=== PATIENT | male | born 1985 | race Caucasian/White ===

== ENCOUNTER 2023-07-13 12:37 | Outpatient (CLI) | payer OTHER, SELFPAY ==
[2023-07-13 12:51] LABS: Basophils Absolute Auto 0.11 K/mm3 (0.00-0.10); Eosinophils Absolute Auto 0.32 K/mm3 (0.02-0.50); Eosinophils Percent Auto 2.8 % (1.0-6.0); Hematocrit 44.1 % (40.0-54.0); Hemoglobin 15.1 g/dL (14.0-18.0); Immature Granulocyte Absolute 0.03 K/mm3 (0.00-0.00); Immature Granulocyte Percent A 0.3 % (0.0-0.0); Lymphocytes Percent Auto 49.6 % (18.0-42.0); Mean Corpuscular HGB Conc 34.2 g/dL (32.0-36.0); Mean Corpuscular Hemoglobin 31.7 pg (27.0-31.0); Mean Corpuscular Volume 92.5 fL (78.0-102.0); Mean Platelet Volume 9.1 fl (8.7-11.0); Monocytes Absolute Auto 0.79 K/mm3 (0.10-0.90); Neutrophils Absolute Auto 4.5 K/mm3 (1.7-7.2); Neutrophils Percent Auto 39.3 % (50.0-70.0); Platelet Count Result 270 K/mm3 (150-420); Red Blood Count 4.77 M/mm3 (4.70-6.10); Red Cell Distribution Width 12.8 % (11.6-14.4); White Blood Count 11.3 K/mm3 (4.8-10.8)
[2023-07-13 14:21] LABS: Alanine Aminotransferase 40 U/L (16-63); Albumin Level 4.1 g/dL (3.4-5.0); Alkaline Phosphatase 84 U/L (46-116); Anion Gap 7 mmol/L (8-16); Aspartate Amino Transferase 28 U/L (15-37); Bilirubin,Total 0.6 mg/dL (0.00-1.00); Blood Urea Nitrogen 14 mg/dL (7-18); Calcium 8.7 mg/dL (8.5-10.1); Carbon Dioxide 29 mmol/L (21-32); Chloride 102 mmol/L (98-108); Cholesterol 136 mg/dL (0-200); Estimated Glomerular Filt Rate > 60; Glucose 68 mg/dL (70-99); HDL Direct 38 mg/dL (40-60); LDL Cholesterol Calculated 85 mg/dL (<130); Osmolality Calculated 284 mOsm/kg (285-295); Potassium 4.5 mmol/L (3.5-5.1); Sodium 138 mmol/L (136-145); Total Protein 7.2 g/dL (6.4-8.2); Triglycerides 67 mg/dL (0-150)
[2023-07-13 14:22] LABS: Thyroid Stimulating Hormone Reflex 1.27 u/IU/mL (0.36-3.74)
[2023-07-14 09:25] LABS: Magnesium 2.1 mg/dL (1.8-2.4)
== END 2023-07-13 12:38 | disposition home or self-care (01) ==
PROVIDERS: PCP Family Medicine; Visit Provider Family Medicine
DX: I10 Essential (primary) hypertension (principal); E11.9 Type 2 diabetes mellitus without complications; E61.2 Magnesium deficiency
CPT/HCPCS: 36415; 80053; 80061; 83735; 84443; 85025

== ENCOUNTER 2023-08-08 11:12 | Outpatient (CLI) | payer OTHER, SELFPAY ==
--- NOTE | ~2023-08-08 | XR_ITS ---
Lumbosacral Spine: AP and lateral views Clinical History: Pain Findings: The normal lordotic curve is maintained. There is mild dextro scoliosis. No fracture or sub luxation. There is moderate degenerative disc change at L3-L4 and L4-L5. There is mild to moderate fa cet arthropathy at the lower lumbar spine. The sacroiliac joints are normally outlined. Impression: [id number] degenerative spondylosis, as above. Reviewed, dictated and finalized at location M. WORKER Impression: [id number] degenerative spondylosis, as above.
== END 2023-08-08 11:13 | disposition home or self-care (01) ==
LOC: CHSIMG 11:14
PROVIDERS: PCP Family Medicine; Visit Provider Family Medicine
DX: G89.29 Other chronic pain (principal); M54.9 Dorsalgia, unspecified
CPT/HCPCS: 72100

== ENCOUNTER 2023-08-26 14:24 | Outpatient (CLI) | payer OTHER, SELFPAY ==
--- NOTE | ~2023-08-26 | XR_ITS ---
EXAMINATION: XR thoracic spine 3V DATE: 08/26/2023 14:57 INDICATION: Pain in thoracic spine. TECHNIQUE: 3 views of thoracic spine were obtained. COMPARISON: None. FINDINGS: There is levocurvature of cervicothoracic spine. There is 6 degrees dextrocurvature of thor acic spine. There is mild chronic anterior wedging of T12 and L1 vertebral bodies. Intervertebral dis c heights are normal. There are bridging endplate osteophytes at multiple levels in the spine, consis tent with diffuse idiopathic skeletal hyperostosis (DISH). IMPRESSION: 1. DISH. Reviewed, dictated and finalized at location A. LION CUTTER IMPRESSION: 1. DISH.
--- NOTE | ~2023-08-26 | XR_ITS ---
EXAMINATION: XR_CERV2-3V_CR DATE: 08/26/2023 14:57 INDICATION: Neck pain. TECHNIQUE: 4 views of cervical spine were obtained. COMPARISON: None. FINDINGS: There is 8 degrees levocurvature of cervicothoracic spine. There is mild kyphosis of cervic al spine. Vertebral body heights and intervertebral disc heights are normal. There are bulky anterior endplate osteophytes at multiple levels. The facet joints are unremarkable. No central canal stenosi s or prevertebral soft tissue swelling. IMPRESSION: 1. Mild cervical spondylosis. Reviewed, dictated and finalized at location A. ME AUDITOR
== END 2023-08-26 14:25 | disposition home or self-care (01) ==
LOC: CHSIMG 14:27
PROVIDERS: PCP Family Medicine; Visit Provider Nurse Practitioner Adult Health
DX: M54.6 Pain in thoracic spine (principal); M48.14 Ankylosing hyperostosis [Forestier], thoracic region; M43.02 Spondylolysis, cervical region
CPT/HCPCS: 72040; 72072

== ENCOUNTER 2023-10-15 14:27 | Emergency (ER) | payer OTHER, SELFPAY ==
[2023-10-15 14:30] VITALS: BP 144/95; PULSE 73; RESP 20; TEMP 36.9; O2SAT 97
--- NOTE | 2023-10-15 14:49 | PC.NURSE ---
1440 CALL PLACED TO [facility] FOR OUT OF POCKET COST OF ABT. STAFF STATED SITUATION FIXED, NO CHARGE FOR MEDICATIONS. PT INFORMED OF NO CHARGE. PT DEPARTED FACILITY WITHOUT BEING SEEN BY PROVIDER.
== END 2023-10-15 14:43 | disposition left against medical advice (07) ==
PROVIDERS: Emergency Provider Emergency Medicine
DX: Z53.21 Procedure and treatment not carried out due to patient leaving prior to being seen by health care provider (principal)
CPT/HCPCS: 99199

== ENCOUNTER 2023-11-04 14:03 | Outpatient (RCR) | payer OTHER, SELFPAY ==
--- NOTE | 2023-12-21 09:05 | OPREHPOC ---
Outpatient Therapy Plan of Care This is a Multidisciplinary Plan of Care that may contain components documented by all disciplines (PT, OT, and ST.) PT Problem 1 PT Problem #1 Knowledge Deficit PT Goal 1 Goal 1. independent and compliant with HEP Target Visit 6 PT Problem 2 PT Problem #2 Pain PT Goal 1 Goal 1. Decrease pain at worst to 5/10 or less in the lower back 2. reduction of radicular symptoms to not past the buttocks bilaterally Target Visit 12 PT Problem 3 PT Problem #3 Impaired Range of Motion PT Goal 1 Goal 1. improve active lumbar flexion to ankles 2. improve active lumbar extension to 20 degrees 3. improve active lumbar bilateral side bending to 30 degrees or better Target Visit 12 PT Problem 4 PT Problem #4 Impaired Strength PT Goal 1 Goal 1. improve bilateral hip strength to 4+/5 or better overall 2. improve bilateral knee strength to 5/5 3. patient to perform bridge and hold for 1 minute or more without losing posture Target Visit 12 PT Problem 5 PT Problem #5 Impaired Functional Mobil PT Goal 1 Goal 1. oswestry to display 40% or less functional deficits 2. patient to display 30 degrees or less bilateral hamstrings tightness per the 90/90 test 3. patient to perform 5x sit to stand test in 15 seconds or less with fluid movement 4. patient to stand and walk fro 30 minutes or more without increased symptoms in the lower back. Target Visit 12
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
--- NOTE | 2024-03-29 10:13 | PCPTNOTE ---
Pt only attended his IE and no follow ups. He is discharged. -Vicky Younger, PT
== END 2023-11-04 14:30 | disposition home or self-care (01) ==
LOC: CHSPT 14:03
DX: M54.41 Lumbago with sciatica, right side (principal); M54.42 Lumbago with sciatica, left side; G89.29 Other chronic pain
CPT/HCPCS: 97014; 97110; 97161; G0283

== ENCOUNTER 2023-11-10 11:36 | Outpatient (NON) | payer OTHER, SELFPAY | END 2023-11-10 11:37 | disposition home or self-care (01) | LOC: CHSLAB 11:37 | PROVIDERS: Visit Provider Family Medicine | DX: R32 Unspecified urinary incontinence (principal) | CPT/HCPCS: 87077; 87086; 87088; 87186 ==

== ENCOUNTER 2023-11-13 20:03 | Observation (INO) | payer OTHER, SELFPAY ==
--- NOTE | ~2023-11-13 | CT_ITS ---
EXAMINATION: CT abdomen pelvis wo con DATE: 11/13/2023 21:26 INDICATION: fever bilateral flank pain recent UTI TECHNIQUE: Computed tomography (CT) of the abdomen and pelvis was performed without intravenous contr ast. Automated exposure control and iterative reconstruction technique were employed. The dose-length product was 931.96 mGy-cm. COMPARISON: None. FINDINGS: Lower thorax: Unremarkable Liver: Enlarged. Biliary/Gallbladder: Gallbladder is normal. No bile duct dilation. Pancreas: No mass or duct dilation. Spleen: Normal. Adrenals:No mass. Kidneys: Mild bilateral perinephric stranding, slightly worse on the left. 3 mm nonobstructing left midpole calcification. No suspicious mass. Mild stranding around the bilater al ureters. No hydronephrosis. GI tract: No small or large bowel dilation. Normal appendix. Diverticulosis without diverticulitis. Mesentery/Peritoneum: No ascites, mass, or free air. Retroperitoneum: No mass. Pelvis: Partially distended bladder with mild wall thickening. Prostatic calcifications. Soft Tissues: Small uncomplicated fat-containing umbilical and bilateral inguinal hernias. Bones: No acute osseous finding. IMPRESSION: Hepatomegaly. Mild bilateral perinephric and periureteral stranding, may represent ascending infection or pyeloneph ritis. Cystitis versus wall thickening from incomplete urinary bladder distention. Correlate with urinalysis . Reviewed, dictated and finalized at location K. IMPRESSION: Hepatomegaly. Mild bilateral perinephric and periureteral stranding, may represent ascending infection or pyelonephritis. Cystitis versus wall thickening from incomplete urinary bladder distention. Cor relate with urinalysis.
[2023-11-13 20:05] VITALS: BP 153/103; PULSE 81; RESP 18; TEMP 37.5; O2SAT 99
--- NOTE | 2023-11-13 21:03 | WPDEDEXPGENP ---
HPI - General Ped General Chief complaint: Urogenital-Male Stated complaint: UTI/Kidney Pain Time Seen by Provider: 11/13/23 21:02 Source: patient Mode of arrival: ambulatory Limitations: no limitations History of Present Illness HPI narrative: 37-year-old homosexual male recently diagnosed with a UTI 5 days ago on Bactrim by Dr. Goyal complains of flank pain fever chills nausea vomiting. Patient has been on Bactrim twice a day. His symptoms actually started about 2 weeks ago associated with fever nausea generalized joint pain tremor low back pain he also had some burning with urination. He has less burning with urination now. But does complain of urgency incontinence of urine mucus from his penis on his underwear. Patient complains of Urinary frequency that at times he feels like it is difficult to avoid or has to go but that he is unable to void. he vomited 4 times today 1st clear liquid after he had drunk some water and then some green liquid. His pain is worse when he moves around it is bilateral flank. Also had some neck pain he has chronic back and neck pain for which he takes [place] 10 3 times a day. He has felt fevers and chills. Patient has a monogamous relationship and has never had a last tested 2 years ago for this. he has had just a little bit of cough was still little short of breath but not now. Denies any rash or itching bleeding or bruising he has been lightheaded when he stands up for the last 3 days complains of generalized fatigue tiredness and exhaustion and generalized weakness. Denies any numbness. Denies any other complaints. Related Data Home Medications Medication Instructions Recorded Confirmed diclofenac sodium 50 mg 50 mg PO QHS 07/13/23 11/13/23 tablet,delayed release gabapentin 300 mg capsule 600 mg PO TID 07/13/23 11/13/23 hydrocodone 10 mg-acetaminophen 1 tablet PO Q8H PRN Pain 07/13/23 11/13/23 325 mg tablet ubrogepant 100 mg tablet (Ubrelvy) 100 mg PO ONCE 07/13/23 11/13/23 celecoxib 100 mg capsule 100 mg PO DAILY 11/13/23 11/13/23 methocarbamol 500 mg tablet 500 mg PO TID 11/13/23 11/13/23 Allergies Allergy/AdvReac Type Severity Reaction Status Date / Time ketorolac Allergy Unknown Unknown Verified 11/10/23 07:48 pregabalin [From Lyrica] Allergy Unknown Verified 11/13/23 20:19 Pediatric Review of Systems All systems ED: reviewed and negative except as stated PMFSH Past Medical History Medical History Dissociation Diverticulitis Migraines PTSD (post-traumatic stress disorder) Surgical History Surgical History H/O knee surgery H/O removal of cyst [place] teeth removed Family History Family History Mother Heart disease Diabetes mellitus Kidney disease Parkinsons disease Throat cancer Father Diabetes mellitus Social History Social History Smoking status: Current every day smoker Tobacco type: e-cigarettes/vaping Alcohol intake: never Substance use: current Substance use type: marijuana Pediatric Exam Narrative: Physical exam: White male With mild distress. ?Head:? Normocephalic atraumatic.? Eyes conjunctiva pink sclera nonicteric.? Ears externally normal.? Oropharynx is clear with moist mucous membranes no exudates.? Neck is supple no lymphadenopathy nontender full range of motion.? Back is nontender.? Chest nontender.? Lungs are clear without wheezes rales or rhonchi.? Heart is regular rate rhythm without murmurs gallops or rubs.? Abdomen soft and nontender no hepatosplenomegaly or masses no CVA tenderness no abdominal bruits.? Extremities no cyanosis clubbing or edema.? Neurological she is alert and oriented x4 motor and sensory grossly intact.? Skin is warm and dry without lesions. Course Vital Signs V
[2023-11-13] MEDS: ONDANSETRON INJ 4 MG/2 ML VIAL IV PUSH (21:24)
[2023-11-13] MEDS: HYDROmorphone HCL INJ (*CRX) 2 MG/ML VIAL 1 MG IV PUSH (21:25)
[2023-11-13] MEDS: SODIUM CHLORIDE 0.9% IV 1,000 ML 999 ML IV CONT (21:25)
[2023-11-13] MEDS: ACETAMINOPHEN 325 MG TABLET 650 MG PO (21:26)
[2023-11-13 21:29] VITALS: BP 132/74; PULSE 87; RESP 20; TEMP 37.7; O2SAT 97
[2023-11-13 21:38] LABS: Bilirubin Urine Negative (Negative); Blood Urine 1+ (Negative); Color Urine Yellow (Yellow); Glucose Urine UA Negative (Negative); Ketones Urine Negative (Negative); Leukocyte Esterase Ur 1+ LEU/UL (Negative); Nitrate Urine Negative (Negative); Protein Urine Trace (Negative); pH Urine 6.5 (5.0-8.0)
[2023-11-13 21:43] LABS: Add Urine Microscopic? YES; Appearance Urine Sl Cloudy (Clear)
[2023-11-13 21:44] LABS: Bacteria Urine 2+ /hpf; RBC Urine 0-2 /hpf (0-2)
[2023-11-13 22:10] LABS: Hematocrit 37.7 % (40.0-54.0); Hemoglobin 12.6 g/dL (14.0-18.0); Mean Corpuscular HGB Conc 33.4 g/dL (32-36); Mean Corpuscular Volume 92.6 fL (78.0-102.0); Mean Platelet Volume 9.2 fl (8.7-11.0); Platelet Count Result 232 K/mm3 (150-420); Red Blood Count 4.07 M/mm3 (4.70-6.10); Red Cell Distribution Width 12.7 % (11.6-14.4); White Blood Count 18.9 K/mm3 (4.8-10.8)
[2023-11-13 22:21] VITALS: BP 125/79; PULSE 97; RESP 20; TEMP 37; O2SAT 96
[2023-11-13 22:22] VITALS: TEMP 37
--- NOTE | 2023-11-13 22:23 | PC.NURSE ---
Pt resting c TV on. Reports feeeling better since given meds, sipping on ice water and apple juice. Pt informed on wait times due to machine down in lab. Pt aware of wait times and POC at this time.
[2023-11-13 23:14] LABS: Alanine Aminotransferase 17 U/L (6-50); Albumin Level 3.9 g/dL (3.5-5.1); Alkaline Phosphatase 84 U/L (38-126); Anion Gap 6 mmol/L (4-12); Aspartate Amino Transferase 27 U/L (17-59); Blood Urea Nitrogen 8 mg/dL (9-20); Calcium 8.7 mg/dL (8.4-10.2); Carbon Dioxide 24 mmol/L (22-30); Chloride 107 mmol/L (98-107); Estimated CRCL calculation 130 ml/min; Estimated Glomerular Filt Rate > 60; Glucose 88 mg/dL (65-110); Osmolality Calculated 281 mOsm/kg (285-295); Potassium 3.2 mmol/L (3.4-5.0); Sodium 137 mmol/L (137-145)
--- NOTE | 2023-11-14 00:32 | PC.NURSE ---
Pt ambulatory to BR per self, c/o pain starting to come back again. ERP made aware of pt pain elevating again.
[2023-11-14 00:38] VITALS: BP 146/85; PULSE 87; RESP 20; TEMP 37.2; O2SAT 97
--- NOTE | 2023-11-14 01:00 | PC.NURSE ---
POC for admit discussed c pt. Pt given meds for pain, he c/o increasing pain again and body chills/aches. Order obtained.
[2023-11-14] MEDS: HYDROmorphone HCL INJ (*CRX) 2 MG/ML VIAL 0.5 MG IV PUSH (01:02)
[2023-11-14] MEDS: ONDANSETRON INJ 4 MG/2 ML VIAL IV PUSH ×2 (01:02→04:34)
[2023-11-14] MEDS: SODIUM CHLORIDE 0.9% IV 1,000 ML 999 ML IV CONT (01:03)
[2023-11-14] MEDS: levoFLOXacin 500 MG/D5W 100 ML 500 MG/100 ML BAG 100 MG IVPB (01:04)
[2023-11-14] MEDS: ACETAMINOPHEN 325 MG TABLET 650 MG PO ×3 (01:20→21:12)
--- NOTE | 2023-11-14 02:41 | PC.NURSE ---
Spoke to Anish Rothman on floor, bed assigned, pt to go to Rm 204. VSS.
--- NOTE | 2023-11-14 02:47 | PC.NURSE ---
Pt now on 2nd floor status board, ED SBAR printed and reviewed, and room is ready. Awaiting pt arrival to the floor.
[2023-11-14 03:07] VITALS: BP 134/78; PULSE 75; RESP 20; TEMP 37; O2SAT 98
[2023-11-14 03:11] VITALS: BMI 33.3
--- NOTE | 2023-11-14 03:21 | ADMGEN ---
This patient, Bang Saxena, was admitted to 2nd Floor Room 204-2. Patient oriented to hospital policies and general routines including ID bracelet, bed and alarms, visiting hours, pain management, procedures, bathroom and other care routines, personal items, smoking policy, room service/diet, and visiting hours. Information on how to activate the Rapid Response Team has been discussed. Patient are encouraged to report perceived risks to care and to ask questions if they do not understand what they are told or what they should do.
[2023-11-14] MEDS: SODIUM CHLORIDE 0.9% IV 1,000 ML 125 ML IV CONT (04:25)
[2023-11-14] MEDS: NICOTINE (*PBKC) 21 MG PATCH 1 PATCH TRANSDERM ×2 (04:34→17:55)
[2023-11-14] MEDS: HYDROcodone/acetaminophen (*CRX) 10-325 MG TABLET 1 TAB PO ×3 (04:35→19:17)
[2023-11-14 07:59] VITALS: TEMP 37.9
[2023-11-14 08:00] VITALS: BP 118/78; PULSE 91; RESP 14; TEMP 37.9; O2SAT 98
--- NOTE | 2023-11-14 08:59 | PM.IMHP ---
H&P: HPI History of Present Illness Date/Time: 11/14/23 08:59 Chief Complaint: pyelonephritis Acute UTI Narrative: This is a 37 year old male with a significant past medical history of dissociation, diverticulitis, migraines, PTSD, tobacco abuse who presented with flank pain, fever, chills, nausea and vomiting. Work up in the hospital includes CT of the abdomen pelvis which shows mild bilateral perinephric and Evelin ureteral stranding likely representing ascending infection or pyelonephritis, cystitis verses wall thickening from incomplete urinary bladder distention. Patient states that his symptoms started about 2 weeks ago with fever, nausea, generalized joint pain, tremor, low back pain, and some burning with urination. He states that he vomited 4 times yesterday and has had worsening flank pain over the last few days. He was initially seen on 11/10/2023 by his primary care physician for the UTI and was started on Bactrim. They did obtain a urine culture and it grew E coli however this sensitivities were resistant to Bactrim. He is homosexual and is in a monogamous relationship. When he seen his primary on 11/10/23 they tested for Chlamydia, Gonorrhea, trichomonas, and mycoplasma genitalium and was negative. He denies any nausea, vomiting, diarrhea, chest pain, shortness a breath. He endorses fever, chills, bilateral flank pain. Workup in the hospital included mild bilateral perinephric and Periureteral stranding, may represent ascending infection or pyelonephritis, cystitis verses wall thickening from incomplete urinary bladder distention. Initial labs shown a white blood cell count of 18.9, hemoglobin 12.6, potassium 3.2, serum osmolarity 281, kidney and liver function are normal. A UA was obtained which showed trace protein, 1+ urine blood, 4+ urine urobilinogen, 1+ leukocyte, 10-15 urine wbc's, 2+ bacteria. Urine and blood cultures were pending. Patient was given pain medication, IV fluids, Zofran, and was given a dose of Levaquin while in the ED. We will start Rocephin as this was not resistant on his previous urine culture. Review of Systems Review of Systems: All systems reviewed & are unremarkable except as noted in HPI and below Constitutional: Constitutional: Reports as per HPI and Reports no additional constitutional complaints Eyes: Eyes: Reports as per HPI and Reports no additional eye complaints ENT: Reports system reviewed and no additional complaints, except as documented and Reports as per HPI Cardiovascular: Cardiovascular: Reports as per HPI and Reports no additional cardiovascular complaints Respiratory: Respiratory: Reports as per HPI and Reports no additional respiratory complaints Gastrointestinal: Gastrointestinal: Reports as per HPI and Reports no additional gastrointestinal complaints Genitourinary: Genitourinary: Reports no additional male genitourinary complaints and Reports as per HPI Musculoskeletal: Musculoskeletal: Reports no additional musculoskeletal complaints and Reports as per HPI Integumentary/Breasts: Skin/Breast: Reports system reviewed and no additional complaints, except as docu and Reports as per HPI Neurologic: Reports system reviewed and no additional complaints, except as documented and Reports as per HPI Psychiatric: Psychiatric: Reports no additional psychiatric complaints and Reports as per HPI PMFSH Past Medical History Medical History Dissociation Diverticulitis DJD (degenerative joint disease) Migraines PTSD (post-traumatic stress disorder) Scoliosis Surgical History Surgical History H/O knee surgery H/O removal of cyst [employer] [employer] teeth removed Family History Family History Mother Heart disease Diabetes mellitus Kidney disease Parkinsons disease Throat cancer Father Diabetes mellitus Social Hi
[2023-11-14 09:19] VITALS: TEMP 36.8
[2023-11-14] MEDS: methocarbamoL 500 MG TABLET PO ×3 (09:19→17:55)
[2023-11-14] MEDS: CELECOXIB 100 MG CAPSULE PO (09:19)
[2023-11-14] MEDS: GABAPENTIN 300 MG CAPSULE 600 MG PO ×3 (09:19→17:55)
[2023-11-14 12:08] LABS: Basophils Absolute Auto 0.06 K/mm3 (0.00-0.10); Basophils Percent Auto 0.3 % (0.0-1.0); Eosinophils Percent Auto 0.5 % (1.0-6.0); Hematocrit 37.5 % (40.0-54.0); Immature Granulocyte Percent A 0.5 % (0.0-0.0); Lymphocytes Absolute Auto 3.15 K/mm3 (1.10-4.50); Lymphocytes Percent Auto 17.1 % (18.0-42.0); Mean Corpuscular HGB Conc 34.7 g/dL (32-36); Mean Corpuscular Volume 92.4 fL (78.0-102.0); Mean Platelet Volume 9.2 fl (8.7-11.0); Monocytes Absolute Auto 1.97 K/mm3 (0.10-0.90); Monocytes Percent Auto 10.7 % (2.0-11.0); Neutrophils Absolute Auto 13.02 K/mm3 (1.70-7.20); Neutrophils Percent Auto 70.9 % (50.0-70.0); Platelet Count Result 259 K/mm3 (150-420); Red Blood Count 4.06 M/mm3 (4.70-6.10); Red Cell Distribution Width 12.8 % (11.6-14.4); White Blood Count 18.4 K/mm3 (4.8-10.8)
[2023-11-14 16:00] VITALS: BP 127/84; PULSE 85; RESP 18; TEMP 37.1; O2SAT 97
[2023-11-14] MEDS: MIRTAZAPINE 7.5 MG TABLET PO (20:56)
[2023-11-14 23:07] LABS: Alanine Aminotransferase 25 U/L (16-63); Albumin Level 3.1 g/dL (3.4-5.0); Alkaline Phosphatase 84 U/L (46-116); Anion Gap 11 mmol/L (4-12); Aspartate Amino Transferase 21 U/L (15-37); Bilirubin,Total 1.4 mg/dL (0.00-1.00); Blood Urea Nitrogen 7 mg/dL (7-18); Calcium 8.9 mg/dL (8.5-10.1); Carbon Dioxide 25 mmol/L (21-32); Chloride 102 mmol/L (98-108); Estimated CRCL calculation 120 ml/min; Estimated Glomerular Filt Rate > 60; Glucose 62 mg/dL (70-99); Osmolality Calculated 282 mOsm/kg (285-295); Potassium 3.7 mmol/L (3.5-5.1); Sodium 138 mmol/L (136-145); Total Protein 6.8 g/dL (6.4-8.2)
[2023-11-15] VITALS: BP 138/84; PULSE 87; RESP 16; TEMP 37.1; O2SAT 97
[2023-11-15] MEDS: HYDROcodone/acetaminophen (*CRX) 10-325 MG TABLET 1 TAB PO ×4 (01:23→20:36)
[2023-11-15 05:55] LABS: Basophils Absolute Auto 0.06 K/mm3 (0.00-0.10); Basophils Percent Auto 0.5 % (0.0-1.0); Eosinophils Absolute Auto 0.19 K/mm3 (0.02-0.50); Eosinophils Percent Auto 1.5 % (1.0-6.0); Hematocrit 37.1 % (40.0-54.0); Hemoglobin 12.1 g/dL (14.0-18.0); Immature Granulocyte Absolute 0.06 K/mm3 (0.00-0.00); Immature Granulocyte Percent A 0.5 % (0.0-0.0); Lymphocytes Absolute Auto 2.87 K/mm3 (1.10-4.50); Lymphocytes Percent Auto 22.5 % (18.0-42.0); Mean Corpuscular HGB Conc 32.6 g/dL (32-36); Mean Corpuscular Hemoglobin 30.6 pg (27.0-31.0); Mean Corpuscular Volume 93.7 fL (78.0-102.0); Mean Platelet Volume 9.5 fl (8.7-11.0); Monocytes Absolute Auto 1.35 K/mm3 (0.10-0.90); Monocytes Percent Auto 10.6 % (2.0-11.0); Neutrophils Absolute Auto 8.21 K/mm3 (1.70-7.20); Neutrophils Percent Auto 64.4 % (50.0-70.0); Platelet Count Result 260 K/mm3 (150-420); Red Blood Count 3.96 M/mm3 (4.70-6.10); Red Cell Distribution Width 12.6 % (11.6-14.4); White Blood Count 12.7 K/mm3 (4.8-10.8)
[2023-11-15 06:14] LABS: Alanine Aminotransferase 35 U/L (16-63); Albumin Level 2.6 g/dL (3.4-5.0); Alkaline Phosphatase 82 U/L (46-116); Anion Gap 8 mmol/L (4-12); Aspartate Amino Transferase 31 U/L (15-37); Bilirubin,Total 0.8 mg/dL (0.00-1.00); Blood Urea Nitrogen 8 mg/dL (7-18); Chloride 101 mmol/L (98-108); Estimated CRCL calculation 117 ml/min; Estimated Glomerular Filt Rate > 60; Glucose 97 mg/dL (70-99); Osmolality Calculated 286 mOsm/kg (285-295); Potassium 3.4 mmol/L (3.5-5.1); Sodium 139 mmol/L (136-145); Total Protein 6.9 g/dL (6.4-8.2)
[2023-11-15 06:29] LABS: Carbon Dioxide 30 mmol/L (21-32)
[2023-11-15 08:00] VITALS: BP 150/90; PULSE 82; RESP 16; TEMP 36.9; O2SAT 98
[2023-11-15] MEDS: GABAPENTIN 300 MG CAPSULE 600 MG PO ×3 (08:01→16:55)
[2023-11-15] MEDS: NICOTINE (*PBKC) 21 MG PATCH 1 PATCH TRANSDERM (08:01)
[2023-11-15] MEDS: CELECOXIB 100 MG CAPSULE PO (08:02)
[2023-11-15] MEDS: methocarbamoL 500 MG TABLET PO ×3 (08:02→16:55)
[2023-11-15] MEDS: ENOXAPARIN 40 MG/0.4 ML SYRINGE SUB-Q (08:05)
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
[2023-11-15] MEDS: POTASSIUM CHLORIDE 20 MEQ ER TABLET 40 MEQ PO (14:18)
[2023-11-15 15:34] VITALS: BP 143/85; PULSE 75; RESP 16; TEMP 36.9; O2SAT 97
[2023-11-15] MEDS: MIRTAZAPINE 7.5 MG TABLET PO (20:35)
[2023-11-16] VITALS: BP 136/91; PULSE 80; RESP 18; TEMP 36.7; O2SAT 97
[2023-11-16 05:19] LABS: Basophils Absolute Auto 0.07 K/mm3 (0.00-0.10); Basophils Percent Auto 0.6 % (0.0-1.0); Eosinophils Absolute Auto 0.39 K/mm3 (0.02-0.50); Eosinophils Percent Auto 3.5 % (1.0-6.0); Hematocrit 37.7 % (40.0-54.0); Hemoglobin 12.4 g/dL (14.0-18.0); Immature Granulocyte Absolute 0.04 K/mm3 (0.00-0.00); Immature Granulocyte Percent A 0.4 % (0.0-0.0); Lymphocytes Absolute Auto 2.63 K/mm3 (1.10-4.50); Lymphocytes Percent Auto 23.8 % (18.0-42.0); Mean Corpuscular HGB Conc 32.9 g/dL (32-36); Mean Corpuscular Hemoglobin 30.7 pg (27.0-31.0); Mean Corpuscular Volume 93.3 fL (78.0-102.0); Mean Platelet Volume 9.2 fl (8.7-11.0); Monocytes Absolute Auto 1.07 K/mm3 (0.10-0.90); Monocytes Percent Auto 9.7 % (2.0-11.0); Neutrophils Absolute Auto 6.83 K/mm3 (1.70-7.20); Platelet Count Result 297 K/mm3 (150-420); Red Blood Count 4.04 M/mm3 (4.70-6.10); Red Cell Distribution Width 12.7 % (11.6-14.4)
[2023-11-16 05:33] LABS: Alanine Aminotransferase 76 U/L (16-63); Albumin Level 2.7 g/dL (3.4-5.0); Alkaline Phosphatase 92 U/L (46-116); Anion Gap 11 mmol/L (4-12); Aspartate Amino Transferase 65 U/L (15-37); Bilirubin,Total 0.6 mg/dL (0.00-1.00); Blood Urea Nitrogen 9 mg/dL (7-18); Calcium 8.8 mg/dL (8.5-10.1); Carbon Dioxide 28 mmol/L (21-32); Chloride 101 mmol/L (98-108); Estimated CRCL calculation 113 ml/min; Estimated Glomerular Filt Rate > 60; Glucose 95 mg/dL (70-99); Osmolality Calculated 288 mOsm/kg (285-295); Potassium 3.7 mmol/L (3.5-5.1); Sodium 140 mmol/L (136-145); Total Protein 7.2 g/dL (6.4-8.2)
[2023-11-16 08:00] VITALS: BP 118/83; PULSE 71; RESP 14; TEMP 36.4; O2SAT 96
--- NOTE | 2023-11-16 08:25 | PM.DS ---
DS: Admitting Diagnosis Discharge Date 11/16/2023 Admitting Diagnosis UTI, acute pyelonephritis, hypertension, chronic back pain DS: Discharge Diagnosis Discharge Diagnosis (1) UTI (urinary tract infection): Code(s): N39.0 - Urinary tract infection, site not specified Status: Acute (2) Acute pyelonephritis: Code(s): N10 - Acute pyelonephritis Status: Acute (3) Hypertension: Code(s): I10 - Essential (primary) hypertension Status: Acute (4) Chronic back pain: Code(s): M54.9 - Dorsalgia, unspecified; G89.29 - Other chronic pain Status: Chronic (5) Bacteremia, escherichia coli: Code(s): R78.81 - Bacteremia; B96.20 - Unspecified Escherichia coli [E. coli] as the cause of diseases classified elsewhere Status: Acute (6) Tobacco abuse: Code(s): Z72.0 - Tobacco use Status: Acute DS: Summary Hospital Course Hospital Course: Patient was treated with Bactrim for urinary tract infection as an outpatient but symptoms continued to worsen including flank pain, fever, chills, nausea and vomiting. Symptoms started 2 weeks prior to admission. Culture was resistant to. Patient was admitted for IV antibiotics blood cultures obtained. While in the hospital 1 bottle of 1 set of cultures was positive for Gram-negative bacilli presumed to be E coli. Patient was treated with Rocephin once admitted. Dysuria flank pain nausea vomiting symptoms resolved. No fever chills since admission. Patient is well-appearing. Today is his birthday so he is requesting discharge. Repeat cultures no growth to date will continue to monitored. Discussion ID pharmacist recommending 3 times a day Augmentin which we will continue for 10 days due to bacteremia and pyelonephritis. Patient instructed return precautions. Also instructed to take entire prescription of antibiotics which she states he always does. Time spent discussing smoking cessation with patient: 3 to 10 minutes Status at Discharge Cognitive/behavioral status at discharge: Awake alert oriented and pleasant Functional status at discharge: independent ambulation Overall status at discharge: patient is progressing back to baseline Time Spent with Patient Time attestation: Total time spent providing and/or coordinating discharge services: 45 minutes Time spent: Greater than 30 minutes Exam Narrative: GENERAL: Well-appearing, well-nourished, and in no acute distress. HEAD: Normocephalic, atraumatic. ENT:? Mucous membranes moist. CHEST: Clear to auscultation.? No respiratory distress. HEART: Regular rate and rhythm. ? Normal peripheral pulses. ABDOMEN: Soft, nontender, nondistended. EXTREMITIES: Normal range of motion. No peripheral edema. SKIN: Warm dry normal color NEURO: Alert and oriented x3. PSYCH: Normal mood and affect DS: Data Data Completed and Pending Labs on day of discharge: Labs from last 24 hours 11/16/23 05:13 WBC 11.0 H RBC 4.04 L Hgb 12.4 L Hct 37.7 L MCV 93.3 MCH 30.7 MCHC 32.9 RDW 12.7 Plt Count 297 MPV 9.2 Immature Gran % (Auto) 0.4 H Neut % (Auto) 62.0 Lymph % (Auto) 23.8 [place] % (Auto) 9.7 Eos % (Auto) 3.5 Baso % (Auto) 0.6 Lymph # (Auto) 2.63 [place] # (Auto) 1.07 H Eos # (Auto) 0.39 Baso # (Auto) 0.07 Abs Immat Gran (auto) 0.04 H Absolute Neuts (auto) 6.83 Absolute Nucleated RBC 0.00 Nucleated RBC % 0.0 Sodium 140 Potassium 3.7 Chloride 101 Carbon Dioxide 28 Anion Gap 11 BUN 9 Creatinine 0.93 Estim Creat Clear Calc 113 Estimated GFR > 60 Glucose 95 Calculated Osmolality 288 Calcium 8.8 Total Bilirubin 0.6 AST 65 H ALT 76 H Alkaline Phosphatase 92 Total Protein 7.2 Albumin 2.7 L Preliminary micro results at discharge 11/13/23 22:07 Blood Culture - Preliminary Blood 11/13/23 22:07 Blood Culture - Preliminary Blood Gram negative bacilli isolated Discharge Plan Discharge Attending physician on dis
[2023-11-16] MEDS: ENOXAPARIN 40 MG/0.4 ML SYRINGE SUB-Q (09:22)
[2023-11-16] MEDS: LOSARTAN POTASSIUM 12.5 MG TABLET PO (09:23)
[2023-11-16] MEDS: NICOTINE (*PBKC) 21 MG PATCH 1 PATCH TRANSDERM (09:23)
[2023-11-16] MEDS: CELECOXIB 100 MG CAPSULE PO (09:24)
[2023-11-16] MEDS: methocarbamoL 500 MG TABLET PO (09:24)
[2023-11-16] MEDS: GABAPENTIN 300 MG CAPSULE 600 MG PO (09:24)
[2023-11-16] MEDS: cefTRIAXone 2 GM/NS 100 ML 2 GM/100 ML BAG IVPB (09:40)
--- NOTE | 2023-11-16 13:36 | PC.NURSE ---
Pt discharged to home with significant other. VSS. discharge instructions given to pt regarding medications, new medication side effects , purpose and dosing times. Pt instructed regarding S&S to report to the PCP and to make a post hospital visit . Pt verbalized understanding of all instructions. Pt taken to car via WC per RN.
--- NOTE | 2023-11-17 09:26 | PC.NURSE ---
Discharge call back attempted, no answer
--- NOTE | 2023-11-29 08:51 | PC.NURSE ---
Patient receiving OP rocephin due to culture report, doing well and returning as directed by PMD for outpatient therapy
== END 2023-11-16 13:00 | disposition home or self-care (01) ==
LOC: CHSED 11-14 02:33 → CHS2ND 11-14 08:07
PROVIDERS: Nurse Practitioner Acute Care; Admitting Provider Internal Medicine; Emergency Provider Emergency Medicine; PCP Family Medicine; Visit Provider Nurse Practitioner
DX: N10 Acute pyelonephritis (principal); N39.0 Urinary tract infection, site not specified; R78.81 Bacteremia; B96.20 Unspecified Escherichia coli [E. coli] as the cause of diseases classified elsewhere; I10 Essential (primary) hypertension; M41.9 Scoliosis, unspecified; M19.90 Unspecified osteoarthritis, unspecified site; M54.9 Dorsalgia, unspecified; M54.2 Cervicalgia; G89.29 Other chronic pain; F43.10 Post-traumatic stress disorder, unspecified; F17.290 Nicotine dependence, other tobacco product, uncomplicated
CPT/HCPCS: 36415; 74176; 80053; 81001; 83605; 85025; 85027; 87040; 87077; 87086; 87088; 87147; 87186; 96361; 96365; 96366; 96372; 96374; 96375; 96376; 99285; A9270; G0378; J0696; J1170; J1650; J1956; J2405; J7030

== ENCOUNTER 2023-11-25 11:00 | Outpatient (NON) | payer OTHER, SELFPAY | END 2023-11-25 11:01 | disposition home or self-care (01) | LOC: CHSLAB 11:01 | PROVIDERS: Visit Provider Family Medicine | DX: B96.20 Unspecified Escherichia coli [E. coli] as the cause of diseases classified elsewhere (principal); R78.81 Bacteremia | CPT/HCPCS: 87086 ==

== ENCOUNTER 2023-11-29 12:53 | Outpatient (RCR) | payer OTHER, SELFPAY ==
[2023-11-25 12:50] VITALS: BMI 33.3
[2023-11-25] MEDS: cefTRIAXone 2 GM/NS 100 ML 2 GM/100 ML BAG IVPB (13:00)
[2023-11-25 13:17] VITALS: BP 123/64; PULSE 60; RESP 14; TEMP 36.6; O2SAT 98
[2023-11-25 13:22] LABS: Alanine Aminotransferase 39 U/L (16-63); Albumin Level 3.9 g/dL (3.4-5.0); Alkaline Phosphatase 108 U/L (46-116); Anion Gap 7 mmol/L (4-12); Aspartate Amino Transferase 23 U/L (15-37); Bilirubin,Total 0.3 mg/dL (0.00-1.00); Blood Urea Nitrogen 8 mg/dL (7-18); Calcium 9.9 mg/dL (8.5-10.1); Carbon Dioxide 26 mmol/L (21-32); Chloride 99 mmol/L (98-108); Estimated CRCL calculation 115 ml/min; Estimated Glomerular Filt Rate > 60; Glucose 112 mg/dL (70-99); Osmolality Calculated 273 mOsm/kg (285-295); Sodium 132 mmol/L (136-145)
--- NOTE | 2023-11-25 13:30 | PC.NURSE ---
Patient here for IV Ceftriaxone daily for 5 days as outpatient. Education given. All concerns voiced answered. IV Ceftriaxone administered. SEE MAR. Tolerated well. Will return 11/26/23 at 12:30 pm. Safe exit of hospital per self/ambulatory.
[2023-11-25 13:32] VITALS: BP 124/63; PULSE 64; RESP 12
[2023-11-25 15:06] LABS: Basophils Absolute Auto 0.13 K/mm3 (0.00-0.10); Basophils Percent Auto 0.9 % (0.0-1.0); Eosinophils Absolute Auto 0.43 K/mm3 (0.02-0.50); Hematocrit 46.6 % (40.0-54.0); Hemoglobin 15.4 g/dL (14.0-18.0); Immature Granulocyte Absolute 0.03 K/mm3 (0.00-0.00); Immature Granulocyte Percent A 0.2 % (0.0-0.0); Immature Platelet Fraction Pct 2.1 % (1.0-7.0); Lymphocytes Absolute Auto 7.05 K/mm3 (1.10-4.50); Lymphocytes Percent Auto 49.2 % (18.0-42.0); Mean Corpuscular Hemoglobin 31.2 pg (27.0-31.0); Mean Corpuscular Volume 94.3 fL (78.0-102.0); Mean Platelet Volume 10.2 fl (8.7-11.0); Monocytes Absolute Auto 0.79 K/mm3 (0.10-0.90); Monocytes Percent Auto 5.5 % (2.0-11.0); Neutrophils Absolute Auto 5.91 K/mm3 (1.70-7.20); Neutrophils Percent Auto 41.2 % (50.0-70.0); Platelet Count Result 521 K/mm3 (150-420); Red Blood Count 4.94 M/mm3 (4.70-6.10); Red Cell Distribution Width 12.5 % (11.6-14.4); White Blood Count 14.3 K/mm3 (4.8-10.8)
--- NOTE | 2023-11-26 12:45 | PC.NURSE ---
Patient here for IV Antibiotic. Sitting in chair resting with call light. Tolerated IV start well.
[2023-11-26] MEDS: cefTRIAXone 2 GM/NS 100 ML 2 GM/100 ML BAG IVPB (12:50)
[2023-11-26 12:52] VITALS: BP 137/100; PULSE 64; RESP 16; TEMP 36.1; O2SAT 97; BMI 33.3
--- NOTE | 2023-11-26 13:20 | PC.NURSE ---
Patient tolerated IV antibiotic well. IV site discontinued, dressing applied to site. Patient denies any questions at discharge. To receive another dose of antibiotic tomrrow. Left floor ambulatory.
[2023-11-27 12:45] VITALS: BP 136/91; PULSE 93; RESP 16; TEMP 36.1; O2SAT 95; BMI 33.3
--- NOTE | 2023-11-27 12:45 | PC.NURSE ---
Patient here for IV antibiotic. Tolerated IV start well. Resting in recliner. Call light and belongings provided.
[2023-11-27] MEDS: cefTRIAXone 2 GM/NS 100 ML 2 GM/100 ML BAG IVPB (12:49)
--- NOTE | 2023-11-27 13:25 | PC.NURSE ---
Patient tolerated IV antibiotic well. IV sited removed, tip intact. Dressing applied to site. Patient denies any questions. States he needs to come an hour earlier tomorrow than planned due to an appt. Patient will be coming in at 1130 instead on 1230. Patient left floor ambulatory.
[2023-11-28 12:06] VITALS: BMI 30.9
[2023-11-28] MEDS: cefTRIAXone 2 GM/NS 100 ML 2 GM/100 ML BAG IVPB (12:23)
[2023-11-28 12:34] VITALS: BP 120/86; PULSE 81; RESP 16; TEMP 36.1; O2SAT 97
--- NOTE | 2023-11-28 13:11 | PC.NURSE ---
1140 Patient ambulated to floor with paperwork. States he does have one of his migraines but flank pain is better. Instructed patient on use of call light and TV. States understanding. 1304 Patient left without difficulty. IV removed and patient walked to the elevator.
[2023-11-29] MEDS: cefTRIAXone 2 GM/NS 100 ML 2 GM/100 ML BAG IVPB (13:00)
--- NOTE | 2023-11-29 13:08 | PC.NURSE ---
1240 Patient ambulated to floor without difficulty. IV started without difficulty.
[2023-11-29 13:11] VITALS: BP 136/81; PULSE 86; RESP 16; TEMP 36.1; O2SAT 98
[2023-11-29 13:40] VITALS: BP 135/81; PULSE 85; RESP 16; TEMP 36.7; O2SAT 98
--- NOTE | 2023-11-29 13:50 | PC.NURSE ---
1340 IV removed Vital signs taken patient left ambulating to the elevator.
== END 2024-02-23 23:59 | disposition home or self-care (01) ==
LOC: CHSTREATRM 12:53
PROVIDERS: PCP Family Medicine; Visit Provider Family Medicine
DX: R78.81 Bacteremia (principal); N10 Acute pyelonephritis
CPT/HCPCS: 36415; 80053; 85025; 85055; 87040; 96365; J0696

== ENCOUNTER 2023-12-27 10:49 | Outpatient (CLI) | payer OTHER, SELFPAY | END 2023-12-27 10:50 | disposition home or self-care (01) | LOC: CHSIMG 10:51 | PROVIDERS: PCP Family Medicine; Visit Provider Family Medicine | DX: N10 Acute pyelonephritis (principal) | CPT/HCPCS: 87077; 87086; 87088; 87186 ==

== ENCOUNTER 2023-12-28 12:50 | Outpatient (CLI) | payer OTHER, SELFPAY ==
--- NOTE | ~2023-12-28 | CT_ITS ---
EXAMINATION: CT abdomen pelvis wo con DATE: 12/28/2023 13:19 INDICATION: Left flank pain. Calculus of kidney. TECHNIQUE: Computed tomography (CT) of the abdomen and pelvis was performed without intravenous contr ast. Automated exposure control and iterative reconstruction technique were employed. The dose-length product was 788.70 mGy-cm. COMPARISON: CT abdomen and pelvis 11/13/2023 FINDINGS: The visualized portions of the lung bases are clear without pneumonia or pleural effusion. The heart size is normal. No pericardial effusion. There is diffuse hepatic steatosis. The gallbladde r, spleen, pancreas, adrenal glands, and right kidney are normal. There is a 3 mm stone in left kidne y. There is diverticulosis of the colon without evidence of diverticulitis. There are no dilated loop s of bowel. The appendix is normal. There are no pathologically enlarged lymph nodes. There is no kemi e intraperitoneal fluid. There is severe lumbar spondylosis. Lumbar dextroscoliosis is noted. IMPRESSION: 1. 3 mm nonobstructing left kidney stone. Reviewed, dictated and finalized at location A.
== END 2023-12-28 12:51 | disposition home or self-care (01) ==
PROVIDERS: PCP Family Medicine; Visit Provider Family Medicine
DX: N20.0 Calculus of kidney (principal); G89.29 Other chronic pain; M54.9 Dorsalgia, unspecified; N10 Acute pyelonephritis
CPT/HCPCS: 74176

== ENCOUNTER 2024-10-25 18:22 | Emergency (ER) | payer OTHER, SELFPAY ==
--- NOTE | ~2024-10-25 | CT_ITS ---
CT abdomen pelvis wo con Ordering provider: Enzo Syed MD History: 38 years Male with . left flank pain, know stone . Comparison: December 28, 2023 Technique: CT abdomen and pelvis without IV and without oral contrast. Automated exposure control and iterative reconstruction technique were employed. The dose-length product was 983.26 mGy-cm. Findings: VISUALIZED LOWER CHEST: Normal. UPPER ABDOMINAL ORGANS: Liver: Hepatomegaly. Gallbladder: Normal. Spleen: Normal. Stomach/duodenum: Normal. Pancreas: Normal. Adrenals: Left adrenal adenoma measuring 1.6 cm. Further evaluation with dynamic CT or MRI is advised . Kidneys: 4 mm stone is seen in the left kidney mid pole. PELVIC ORGANS: The bladder is underfilled with slightly thickened wall. Evaluation for cystitis advis ed. BOWEL AND MESENTERY: Colon: No evidence of diverticulitis. Normal appendix. Small Bowel: Normal. No obstruction. Peritoneum/mesentery: No free air or free fluid. No mesenteric lymphadenopathy. RETROPERITONEUM: Mild atheromatous disease of the abdominal aorta. No retroperitoneal lymphadenopat hy. MUSCULOSKELETAL: Superficial soft tissues: Bilateral fat containing inguinal hernias. The superficial soft tissues are normal. Bones: Age appropriate degenerative changes of the spine. Bilateral hip osteoarthritic changes. Dextr oscoliosis. IMPRESSION: 1. Stone in the left kidney midpole. 2. No evidence of appendicitis, diverticulitis or intestinal obstruction. 3. Hepatomegaly. 4. Bilateral fat containing inguinal hernias. Reviewed, dictated and finalized at location A.
[2024-10-25 18:24] VITALS: BP 140/102; PULSE 85; RESP 17; TEMP 36.7; O2SAT 97
--- OUTSIDE RECORDS SUMMARY | 2024-10-25 18:25 | XMS_ITS | Encounter Summary ---
Author Organization [facility] Address [address] [facility] [place] [address] Phone Care Team Providers Care Reinforcing Rod Layer Name Role Phone Enzo Holloway MD Primary Care Provider [phone] Kvng Jaeger MD Unavailable [phone] Ela Kim APRN, [facility] Unavailable + [phone] Tariq Goyal MD Primary Care Provider [phone] Pablo Mora MD Unavailable [phone] Enzo Holloway MD Primary Care Provider [phone] Tariq Goyal MD Primary Care Provider [phone] Reason for Visit * Reason Comments Medication Refill Encounter Details Date Type Department Care Team (Late st Contact Info) Description 06/01/2022 [facility]ill [facility] - [place] [address] [place] [address] Danya Lozano November, PAC [address] [place] [address] Medication Refill Social History Tobacco Use Types Packs/Day Years Used Date Smoking Tobacco: Every Day Cigarettes 0.3 32.6 Started: 04/01/1992 Smokeless Tobacco: Never Comments:2 per week Alcohol Use Standard Drinks/Week Comments Yes 0 (1 standard drink = 0.6 oz pur e alcohol) rare PHQ-2 Answer Date Recorded Total Score - Questions 1-9 0 01/25 Sexually Active Control Partners Comments Yes Sex and Gender Information Value Date Recorded Sex Assigned at Not on file Legal Sex Male 9:24 PM CDT Gender Identity Not on file Sexual Orientation Not on file COVID-19 Exposure Response Date Recorded In the last 10 days, have yo u been in contact with someone who was confirmed or suspected to have Coronavirus/COVID-19? No / Unsure 05/04/2022 10:32 AM HYDROGEN POWER PLANT ENGINEER documented as of this encounter Miscellaneous Notes * Telephone Encounter - Vicky Coleman - 06/03/2022 1:30 PM CST Apt scheduled OGEN POWER PLANT ENGINEER * Telephone Encounter - Alissa Sanchez APRN, CNP - 06/02/2022 12:38 PM CST Needs appointment. Last office visit was in 04/2021 OGEN POWER PLANT ENGINEER * Telephone Encounter - Veronika Butterfield RN - 06/01/2022 2:35 PM CST Pharmacy requesting refill of: Requested Prescriptions Pending Prescriptions Disp Refills ??? omeprazole (PriLOSEC) 20 MG CAPSULE DELAYED RELEASE [Pharmacy Med Name: OMEPRAZOLE DR 20 MG CAPSULE] 60 Capsule 1 Sig: TAKE 1 CAPSULE BY MOUTH TWICE A DAY Order pended. Please sign if you approve. Last fill: 04/05/22 Patients last OV with GI: 04/28/21 Next Office Visit with GI: n/a OGEN POWER PLANT ENGINEER documented in this encounter Plan of Treatment Upcoming Encounters Date Type Department Care Team (Late st Contact Info) Description 12/07/2024 11:00 AM CDT Procedure Visit [facility] [address] [place] [address] Kvng aJeger MD [address] [place] [address] documented as of this encounter Visit Diagnoses Diagnosis Gastroesophageal reflux disease without esophagitis Esophageal reflux documented in this encounter Additional Health Concerns Assessment Noted Time PHQ-9 Depression Total Score: 0 02/04/20 21 1:00 PM CDT documented as of this encounter Care Teams Reinforcing Rod Layer Relationship Specialty Start Date End Date Enzo Holloway MD #[address] [address] PCP - General Family Medicine 04/27/17 12/27/23 Tariq Goyal MD [address] [place] [address] PCP - General Family Medicine 12/28/23 04/02/24 Enzo Holloway MD #[address] [address] PCP - General Family Medicine 04/03/24 08/30/24 Tariq Goyal MD [address] [place] [address] PCP - General Family Medicine 08/31/24 Kvng Jaeger MD [address] [place] [address] Consulting Physician Neurology 04/12/23 Ela Kim, DRAWING CHECKER, EYELET ROW MARKER [address] [place] [address] Nurse Practitioner Advanced Practice Nurse 03/15/22 Pablo Mora MD [address] [place] [address] Consulting Physician Urology 02/03/24 documented as of this encounter
--- OUTSIDE RECORDS SUMMARY | 2024-10-25 18:25 | XMS_ITS | Encounter Summary ---
Author Organization [facility] Address [address] [place] [place] [address] Phone Care Team Providers Care Tankman Name Role Phone Enzo Holloway MD Primary Care Provider [phone] Kvng Jaeger MD Unavailable [phone] Ela Kim APRN, PRESS MANAGER Unavailable Tariq Goyal MD Primary Care Provider [phone] Pablo Mora MD Unavailable [phone] Enzo Holloway MD Primary Care Provider [phone] Tariq Goyal MD Primary Care Provider [phone] Reason for Visit * Reason Comments Medication Refill Encounter Details Date Type Department Care Team (Late st Contact Info) Description 05/12/2022 Refill [facility] - [facility] [address] [place] [id number] Ela Kim APRN, PRESS MANAGER [address] [place] [address] Medication Refill Social History Tobacco Use Types [...] Coronavirus/COVID-19? No / Unsure 05/04/2022 10:32 AM INCLUSION SPECIALIST documented as of this encounter Plan of Treatment Upcoming Encounters Date Type Department Care Team (Late st Contact Info) Description 12/07/2024 11:00 AM CDT Procedure Visit [facility] - Neurology [facility] [address] [place] [address] Kvng Jaeger MD [address] [place] [address] documented as of this encounter Visit Diagnoses Diagnosis Chronic migraine without aura, not intractable, without status migrainosus documented in this encounter Additional Health Concerns Assessment Noted Time PHQ-9 Depression Total Score: 0 02/04/20 21 1:00 PM CDT documented as of this encounter Care Teams Tankman Relationship Specialty Start Date End Date Enzo Holloway MD #[address] [address] PCP - General Family Medicine 04/27/17 12/27/23 Tariq Goyal MD [address] [place] [address] PCP - General Family Medicine 12/28/23 04/02/24 Enzo Holloway MD #[address] [address] PCP - General Family Medicine 04/03/24 08/30/24 Tariq Goyal MD [address] [place] [address] PCP - General Family Medicine 08/31/24 Kvng Jaeger MD [address] [place] [address] Consulting Physician Neurology 04/12/23 Ela Kim APRN, PRESS MANAGER [address] [place] [address] Nurse Practitioner Advanced Practice Nurse 03/15/22 Pablo Mora MD #[address] [address] Consulting Physician Urology 02/03/24 documented as of this encounter
--- OUTSIDE RECORDS SUMMARY | 2024-10-25 18:25 | XMS_ITS | Encounter Summary ---
Author Organization [facility] Address [address] [place] [address] Phone Care Team Providers Care Church History Teacher Name Role Phone Enzo Holloway MD Primary Care Provider [phone] Kvng Jaeger MD Unavailable [phone] Ela Kim APRN, HISTOLOGY SPECIALIST Unavailable Tariq Goyal MD Primary Care Provider [phone] Pablo Mora MD Unavailable [phone] Enzo Holloway MD Primary Care Provider [phone] Tariq Goyal MD Primary Care Provider [phone] Reason for Visit * Reason Comments Medication Refill Encounter Details Date Type Department Care Team (Late st Contact Info) Description 06/19/2022 Refill [facility] - [facility] [address] [place] [phone] Ela Kim APRN, HISTOLOGY SPECIALIST [address] [place] [address] Medication Refill Social History Tobacco Use Types [...] on file Sexual Orientation Not on file documented as of this encounter Plan of Treatment Upcoming Encounters Date Type Department Care Team (Late st Contact Info) Description 12/07/2024 11:00 AM CDT Procedure Visit [facility] - [facility] [address] [place] [address] Kvng Jaeger MD [address] [place] [address] documented as of this encounter Visit Diagnoses Diagnosis Acute post-traumatic headache, not intractable Acute post-traumatic headache Primary hypertension Unspecified essential hypertension documented in this encounter Additional Health Concerns Assessment Noted Time PHQ-9 Depression Total Score: 0 02/04/20 21 1:00 PM CDT documented as of this encounter Care Teams Church History Teacher Relationship Specialty Start Date End Date Enzo Holloway MD #[address] [address] PCP - General Family Medicine 04/27/17 12/27/23 Tariq Goyal MD [address] [place] [address] PCP - General Family Medicine 12/28/23 04/02/24 Enzo Holloway MD #[address] [address] PCP - General Family Medicine 04/03/24 08/30/24 Tariq Goyal MD [address] [place] [address] PCP - General Family Medicine 08/31/24 Kvng Jaeger MD [address] [place] [address] Consulting Physician Neurology 04/12/23 Ela Kim APRN, HISTOLOGY SPECIALIST [address] [place] [address] Nurse Practitioner Advanced Practice Nurse 03/15/22 Pablo Mora MD #[address] [address] Consulting Physician Urology 02/03/24 documented as of this encounter
--- OUTSIDE RECORDS SUMMARY | 2024-10-25 18:25 | XMS_ITS | Encounter Summary ---
Author Organization [facility] Address [address] [facility] [place] [address] Phone Care Team Providers Care Stunt Woman Name Role Phone Enzo Holloway MD Primary Care Provider [phone] Kvng Jaeger MD Unavailable [phone] Ela Kim APRN, [facility] Unavailable + [phone] Tariq Goyal MD Primary Care Provider [phone] Pablo Mora MD Unavailable [phone] Enzo Holloway MD Primary Care Provider [phone] Tariq Goyal MD Primary Care Provider [phone] Reason for Visit * Reason Comments Medication Refill Encounter Details Date Type Department Care Team (Late st Contact Info) Description 12/19/2021 Refill [facility] - [place] [address] [place] [address] Danya Lozano November, PAC [address] [place] [address] Medication Refill Social History Tobacco Use Types Packs/Day Years Used Date Smoking Tobacco: Every Day Cigarettes 0.3 32.6 Started: 04/01/1992 Smokeless Tobacco: Never Comments:1-2 per day Alcohol Use Standard Drinks/Week Comments Yes 0 [...] on file documented as of this encounter Miscellaneous Notes * Telephone Encounter - Valerie Joyce RN - 12/21/2021 10:23 AM CDT [facility] pediatric and adult [facility]. documented in this encounter Plan of Treatment Upcoming Encounters Date Type Department Care Team (Late st Contact Info) Description 12/07/2024 11:00 AM CDT [facility] [address] [place] [address] Kvng Jaeger MD [address] [place] [address] documented as of this encounter Visit Diagnoses Diagnosis Gastroesophageal reflux disease without esophagitis Esophageal reflux documented in this encounter Additional Health Concerns Assessment Noted Time PHQ-9 Depression Total Score: 0 02/04/20 21 1:00 PM CDT documented as of this encounter Care Teams Stunt Woman Relationship Specialty Start Date End Date Enzo Holloway MD #[address] [address] PCP - General Family Medicine 04/27/17 12/27/23 Tariq Goyal MD [address] [place] [address] PCP - General Family Medicine 12/28/23 04/02/24 Enzo Holloway MD #[address] [address] PCP - General Family Medicine 04/03/24 08/30/24 Tariq Goyal MD [address] [place] [address] PCP - General Family Medicine 08/31/24 Kvng Jaeger MD [address] [place] [address] Consulting Physician Neurology 04/12/23 Ela Kim, APPLIED RESEARCHER, FREIGHT SORTER [address] [place] [address] Nurse Practitioner Advanced Practice Nurse 03/15/22 Pablo Mora MD #[address] [address] Consulting Physician Urology 02/03/24 documented as of this encounter
--- OUTSIDE RECORDS SUMMARY | 2024-10-25 18:25 | XMS_ITS | Encounter Summary ---
Author Organization [facility] Address [address] [place] [address] Phone Care Team Providers Care Explosive Man Name Role Phone Enzo Holloway MD Primary Care Provider [phone] Kvng Jaeger MD Unavailable [phone] Ela Kim APRN, [employer] Unavailable Tariq Goyal MD Primary Care Provider [phone] Pablo Mora MD Unavailable [phone] Enzo Holloway MD Primary Care Provider [phone] Tariq Goyal MD Primary Care Provider [phone] Reason for Visit * Reason Comments Medication Refill Encounter Details Date Type Department Care Team (Late st Contact Info) Description 10/19/2022 Refill [facility] #[address] [place] [id number] Ela Kim APRN, MA[employer] [address] [place] [address] Medication Refill Social History Tobacco Use Types [...] suspected to have Coronavirus/COVID-19? No / Unsure 10/21/2022 11:16 AM CDT documented as of this encounter Miscellaneous Notes * Telephone Encounter - Amanda Khoury RN - 10/20/2022 8:09 AM CDT Medication failed the protocol, provider to review and approve the medication order if appropriate. Requested Prescriptions Pending Prescriptions Disp Refills Ubrelvy 100 MG Tablet [Pharmacy Med Name: UBRELVY 100 MG TABLET] 30 Tablet 1 Sig: TAKE 1 TABLET BY MOUTH EVERY DAY NEEDED Not Delegated - Off Protocol Failed - 10/19/2022 5:19 PM Failed - This refill cannot be delegated Passed - Visit with relevant provider in past 12 months or upcoming 90 days Recent Visits Date Type Provider Dept 07/30/22 Procedure Visit Kvng Jaeger MD [facility] Neurology [facility] [place] 05/04/22 Office Visit Ela Kim APRN, CNS [facility] Neurology [facility] [place] 03/15/22 Office Visit Ela Kim APRN, CNS [facility] Neurology [facility] [address] 10/22/21 Office Visit Ela Kim APRN, CNS [facility] Neurology [facility] [place] Showing recent visits within past 365 days and meeting all other requirements Future Appointments Date Type Provider Dept 10/21/22 Appointment Ela Kim APRN, CNS [facility] Neu[facility] [place] 10/22/22 Appointment Kvng Jaeger MD [facility] Neurology [facility] Showing future appointments within next 90 days and meeting all other requirements documented in this encounter Plan of Treatment Upcoming Encounters Date Type Department Care Team (Late st Contact Info) Description 12/07/2024 11:00 AM CDT [facility] [address] [place] [address] Kvng Jaeger MD [address] [place] [address] documented as of this encounter Visit Diagnoses Diagnosis Chronic migraine without aura, not intractable, without status migrainosus documented in this encounter Additional Health Concerns Assessment Noted Time PHQ-9 Depression Total Score: 0 02/04/20 21 1:00 PM CDT documented as of this encounter Care Teams Explosive Man Relationship Specialty Start Date End Date Enzo Holloway MD #[address] [address] PCP - General Family Medicine 04/27/17 12/27/23 Tariq Goyal MD [address] [place] [address] PCP - General Family Medicine 12/28/23 04/02/24 Enzo Holloway MD #[address] [address] PCP - General Family Medicine 04/03/24 08/30/24 Tariq Goyal MD [address] [place] [address] PCP - General Family Medicine 08/31/24 Kvng Jaeger MD [address] [place] [address] Consulting Physician Neurology 04/12/23 Ela Kim APRN, [employer] [address] [place] [address] Nurse Practitioner Advanced Practice Nurse 03/15/22 Pablo Mora MD [address] [place], [facility] [address] [place] [address] Consulting Physician Urology 02/03/24 documented as of this encounter
--- OUTSIDE RECORDS SUMMARY | 2024-10-25 18:26 | XMS_ITS | Encounter Summary ---
Author Organization [facility] Address [address] [place] [address] Phone Care Team Providers Care Optics Engineer Name Role Phone Enzo Holloway MD Primary Care Provider [phone] Kvng Jaeger MD Unavailable [phone] Ela Kim APRN, [facility] [employer] Unavailable [phone] Tariq Goyal MD Primary Care Provider Pablo Mora MD Unavailable [phone] Enzo Holloway MD Primary Care Provider [phone] Tariq Goyal MD Primary Care Provider [phone] Reason for Visit * Reason Comments Medication Refill Encounter Details Date Type Department Care Team (Late st Contact Info) Description 07/13/2021 Refill [facility] - Neurology [facility] #2 [place] [id number] Ela Kim APRN, [facility] [employer] [address] [place] [address] Medication Refill Social History Tobacco Use Types [...] Exposure Response Date Recorded In the last month, have you been in contact with someone who was confirmed or suspected to have Coronavirus / COVID-19? No / Unsure 07/14/2021 2:55 PM WAD BLANKING PRESS ADJUSTER documented as of this encounter Plan of Treatment Upcoming Encounters Date Type Department Care Team (Late st Contact Info) Description 12/07/2024 11:00 AM CDT Procedure Visit [facility] - Neurology [facility] [address]2 [place] [address] Kvng Jaeger MD [address]2 [place] [address] documented as of this encounter Visit Diagnoses Not on filedocumented in this encounter Additional Health Concerns Assessment Noted Time PHQ-9 Depression Total Score: 0 02/04/20 21 1:00 PM CDT documented as of this encounter Care Teams Optics Engineer Relationship Specialty Start Date End Date Enzo Holloway MD [address] [address] PCP - General Family Medicine 04/27/17 12/27/23 Tariq Goyal MD [address] [place] [address] PCP - General Family Medicine 12/28/23 04/02/24 Enzo Holloway MD #[address] [address] PCP - General Family Medicine 04/03/24 08/30/24 Tariq Goyal MD [address] [place] [address] PCP - General Family Medicine 08/31/24 Kvng Jaeger MD [address]1 [place] [address] Consulting Physician Neurology 04/12/23 Ela Kim, MILL HAND, [facility] [address] [place] [address] Nurse Practitioner Advanced Practice Nurse 03/15/22 Pablo Mora MD #[address] [address] Consulting Physician Urology 02/03/24 documented as of this encounter
--- OUTSIDE RECORDS SUMMARY | 2024-10-25 18:26 | XMS_ITS | Encounter Summary ---
Author Organization [facility] Address [address] [place] [address] Phone Care Team Providers Care Pipe Finishing Supervisor Name Role Phone Kvng Jaeger MD Unavailable [phone] Ela Kim APRN, [facility] Unavailable [phone] Pablo Mora MD Unavailable [phone] Tariq Goyal MD Primary Care Provider [phone] Reason for Visit * Auth/Cert (Routine) Specialty Diagnoses / Procedures Referred By Contac t Referred To Contact Diagnoses GROSS HEMATURIA Procedures CYSTOSCOPY,DIL URETHRAL STRICTURE CYSTOSCOPY URETHRAL DILATATION Pablo Mora MD #[address] [address] Phone: tel: fax: Referral ID Status Reason Start Date Expiration Date Visits Re quested Visits Authorized [id number] 1 1 Encounter Details Date Type Department Care Team (Late st Contact Info) Description 10/23/2024 Hospital Encounter [facility] Periop [address] [place] [id number] Pablo Mora MD #[address] [address] Social History Tobacco Use Types Packs/Day Years Used Date Smoking Tobacco: Every Day Cigarettes 0.3 32.6 Started: 04/01/1992 Smokeless Tobacco: Never Comments:2 cigarettes per da y Alcohol Use Standard Drinks/Week Comments Yes 0 (1 standard drink = 0.6 oz pur e alcohol) occasional [facility] Utilities Answer Date Recorded In the past 12 months has e electric, gas, oil, or water company threatened to shut off services in your home? Patient declined 04/23/2024 Social Connection and Isolation Panel [NHANES] A nswer Date Recorded In a typical week, how many times do you talk on the phone with family, friends, or neighbors? Patient declined 04/23/2024 How often do you get togethe r with friends or relatives? Patient declined 04/23/2024 How often do you attend congregational or hindu serv ices? Patient declined 04/23/2024 Do you belong to any clubs o r organizations such as congregational groups, unions, fraternal or athletic groups, or school groups? Patient declined 04/23/2024 How often do you attend meet ings of the clubs or organizations you belong to? Patient declined 04/23/2024 Are you , , di vorced, , never , or living with a partner? Patient declined 04/23/2024 AUDIT-C Answer Date Recorded Q1: How often do you have a drink containing alc ohol? Patient declined 04/23/2024 Q2: How many drinks containi ng alcohol do you have on a typical day when you are drinking? Patient declined 04/23/2024 Q3: How often do you have si x or more drinks on one occasion? Patient declined 04/23/2024 Overall Financial Resource Strain (CARDIA) Answe r Date Recorded How hard is it for you to pa y for the very basics like food, housing, medical care, and heating? Patient declined 04/23/2024 PHQ-2 Answer Date Recorded Total Score - Questions 1-9 0 01/25 [facility] [place] of Occupat ional Health - Occupational Stress Questionnaire Answer Date Recorded Do you feel stress - tense, restless, nervous, or anxious, or unable to sleep at night because your mind is troubled all the time - these days? Patient declined 04/23/2024 Exercise Vital Sign Answer Date Recorde d On average, how many days pe r week do you engage in moderate to strenuous exercise (like a brisk walk)? Patient declined On average, how many minutes do you engage in exercise at this level? Patient declined 04/23/2024 Hunger Vital Sign Answer Date Recorded Within the past 12 months, y ou worried that your food would run out before you got the money to buy more. Patient declined Within the past 12 months, t he food you bought just didn't last and you didn't have money to get more. Patient declined PRAPARE - Transportation Answer Date Re corded In the past 12 months, has l ack of transportation kept you from medical appointments or from getting medications? Patient declined 04/23/2024 In the past 12 months, has l ack of transportation kept you from meetings, work, or from getting things needed for daily living? Patient declined 04/23/2024 Housing Stability Vital Sign Answer Cheikh e Recorded In the last 12 months, was t here a time when you were not able to pay the mortgage or rent on time? Patient declined 04/23/20 24 In the past 12 months, how m any times have you moved where you were living? 1 04/23/2024 At any time in the past 12 m [facility], were you homeless or living in a fdc (including now)? Patient declined 04/23/2024 Education Answer Date Recorded What is the highest level of school you have completed or the highest degree you have received? 12th grade 12/14/2022 Sexually Active Control Partners Comments Yes None Male Sex and Gender Information Value Date Recorded Sex Assigned at Not on file Legal Sex Male 9:24 PM CDT Gender Identity Not on file Sexual Orientation Not on file documented as of this encounter Last Filed Vital Signs Vital Sign Reading Time Taken Comments Blood Pressure - - Pulse - - Temperature - - Respiratory Rate - - Oxygen Saturation - - Inhaled Oxygen Concentration - - Weight 104.3 kg (230 lb) 10/22/2024 9:00 AM CDT Height 177.8 cm (5' 10 ) 10/22/2024 9:00 AM CDT Body Mass Index 33 10/22/2024 9:00 AM CDT documented in this encounter Miscellaneous Notes * Interdisciplinary - Jennifer Acosta RN - 10/22/2024 1:49 PM CDT Patient did not hold his NSAIDs, contacted ROGELIO Lozano in urology. Marta contacted Dr Mora and reported back that per Dr Mora, it was okay to proceed with procedure. Notified patient per phone and informed him as well. * Interdisciplinary - Jennifer Acosta RN - 10/22/2024 12:05 PM CDT PLEASE READ THIS IMPORTANT INFORMATION Currently, your procedure is scheduled for 10/23/24Tuesday. You will need to arrive at 11:00 am. (Should there be a change in your arrival time, you will be notified the weekday prior to your surgerydate). You will be receiving: [] LOCAL [x] MONITORED SEDATION [] SPINAL [] GENERAL anesthetic. IN ADVANCE OF YOUR SURGERY DAY COMPLETE Pre-Procedure testing: None needed Bring your photo ID and insurance card. ARRANGE TRACTOR TRAILER MOVING VAN DRIVER- David For your safety, after having anesthesia, You must have an adult six horse hitch driver (18 yrs or older) arranged in advance of your procedure who can listen to your discharge instructions with you and can stay with you if needed for 24 hrs following your procedure. If you are using public transportation, you must have an adult, you know, ( 18 yrs or older) to accompany you. STOP MEDICATIONS PER YOUR SURGEONS ORDERS Ibuprofen, Celebrex / 7 days prior to procedure HOLD Herbal supplements, Multivitamins, Vitamin E, and Fish Oil Omegas for 3 days prior to the procedure. DO NOT: Smoke, vape, chew or drink alcohol for 24 hours prior to the procedure Shave the operative site Bring any valuables or money with you Wear makeup or jewelry. Remove all body piercings FAILURE TO FOLLOW THE ABOVE INSTRUCTIONS IN ADVANCE MAY RESULT IN CANCELLATION OF YOUR PROCEDURE ONTHE DAY OF. ON THE DAY OF SURGERY NOTHING TO EAT OR DRINK FOR 8 HRS PRIOR TO ARRIVAL TIME ON YOUR PROCEDURE DATE! NO GUM, MINTS, WATER, ETC. FAILURE TO FOLLOW THESE INSTRUCTIONS MAY CAUSE YOUR PROCEDURE TO BE CANCELLED FOR YOUR SAFETY. Please take the following medications with a sip of water before coming to the hospital on the day of your surgery: You may take Tylenol the day of Surgery 1. Hydrocodone-acetaminophen (Elora) IF needed AND can tolerate on an empty stomach 2. Gabapentin (Neurontin) 3. Bupropior (Wellbutrin) 4. Metoprolol (Lopressor) 5. Amlodipine (Norvasc) 6. Omeprazole (Prilosec) Please bring your rescue inhaler, if you have one. You may use your inhaler or nasal spray. DO: Bathe or shower the night before or the day of your procedure Your Doctor's office may give you special cleansers with instructions Wear comfortable clothes that are easy to change in and out of. Wear safe non-slip shoes Bring a list of current medications, including and any [id number] medications and supplements(such as herbs and essential oils) with dosages and how often you take them. Bring CPAP machine if you have sleep apnea and will be staying overnight. Note children under 16 must be accompanied by a parent or legal guardian in the hospital at all times. Report to Registration Upon Arrival Please enter through the EMERGENCY ENTRANCE DOORS if arriving prior to 8 AM or you are in need of awheelchair. If arriving after 8 AM, enter through the FRONT ENTRANCE DOORS and follow the carpenter to your right until you reach the registration. Bring your Photo ID and Insurance card. After you are checked in, Registration will direct you to the elevator which will take you to Day Surgery located onthe 4th floor. Please call Pre-Surgical Testing, if you have any questions or concerns regarding Pre- Surgical instructions- Tuesday thru Tuesday, 08:30- 4 pm . IF YOU EXPERIENCE SIGNS OR SYMPTOMS OF ILLNESS PRIOR TO YOUR SCHEDULED PROCEDURE OR IF YOU CAN'T KEEP YOUR APPOINTMENT, PLEASE CALL YOUR PROCEDURAL DOCTOR'S OFFICE. DO NOT CALL PRE- SURGICAL TESTING. Thank you for selecting [facility] ([facility]) for your procedure.We know you have a choice for your healthcare and we are pleased to provide you with this service. Our [facility] is to: Serve with the Greatest Care and Love . We are not employees of [facility], we are [facility] [employer] driven to provide care based on our [facility], Vision and Values. Please do not hesitate to let us know if you have any questions or concerns. May God Bless you and we look forward to serving you. Your Perioperative Team. * Interdisciplinary - Jennifer Acosta RN - 10/22/2024 9:28 AM CDT [facility] ADULT TEACHING Patient Name: Bang Saxena : 1985 [facility]#: [id number] Person Educated Patient Ready to Learn Yes Teaching Method Phone The Day of Surgery: Call your physician if your physical condition changes (cold, fever, flu). Do not come to the hospital without first calling your physician. Do not eat or drink (no gum, mints, water etc.) unless instructed to do so for at least 8 hours prior to arrival to the hospital. Medications can be taken with a small sip of water. Do not drink any alcohol 24 hours prior to surgery if applicable. Do not smoke for 24 hrs prior to surgery if applicable. Bring CPAP/BIPAP if applicable. Take a shower or bath. Do not apply make-up Wear comfortable, loose fitting clothing Instruction to leave all jewelry at home including wedding/engagement rings or any body piercing jewelry. Leave all valuables at home. Children ages 17 and under must be accompanied by a parent or legal guardian in the hospital at alltimes. Follow your surgeon's instructions for arrival time. If you have questions concerning arrival time,call your surgeon's office. Detailed instructions given for arrival location and parking. Arrange for a responsible person to accompany you, drive you home and stay with you for the first 24 hours following your surgery. If you have not made these arrangements you may be at risk of your surgery being cancelled. Follow directions regarding medications to Take or Hold. It is very important to follow directions from your surgeon's office on Diabetic medication or Blood Thinners. Only 2 adults over the age of 16 will be allowed to accompany you to the [facility]. No children under theage of 16 will be allowed in the [facility] unless they are the patient. If the patient chooses to bring their children under the age of 16, an adult must accompany those children in the surgery waiting room and cannot leave them unattended. During the flu season: refer to the visitation restriction guidelines implemented during that season if applicable. Fall Prevention Teaching The Day of Surgery: Your safety while you are in the hospital is very important to us. Following surgery, you might be at increased risk for falling for several reasons: -The hospital environment is unfamiliar. It???s not the same as being at home -You may be weaker than you realize. -You may be connected to lines or equipment that can cause you to trip. -You may be on medications that make you drowsy or dizzy. We know this can happen especially with pain medication and anesthesia. We want to partner with you in the hospital to make sure you are safe -Please do not feel hesitant to ask for help while in the hospital. You will - need extra help untilyou get stronger especially with walking and using the bathroom. -Pay close attention to what the doctors and nurses tell you about your risk of falling. -A fall can mean a longer hospital stay. Also, injuries from a fall can affect your health for the rest of your life. Some things the nurses may do to keep you safe are: -Have you use the call light for help whenever you get out of bed. -Wear non-skid slippers to keep you from slipping on the floors -Use a special belt that wraps around your waist so we can help steady you when you walk -Activate an alarm on your bed so we know if you are getting up in case you forget to use your calllight -Stay in the bathroom with you in case you become dizzy or light headed Patient Response: Verbalizes Understanding Patient assessed for sign language instructor during the preop interview and appropriate interventions taken if applicable. * Interdisciplinary - Jennifer Acosta RN - 10/22/2024 9:27 AM CDT Patient denies testing + for Covid 19 in past 90 days. Patient instructed to notify surgeons office if they become ill and the office will advise them on how to proceed. documented in this encounter Plan of Treatment Upcoming Encounters Date Type Department Care Team (Late st Contact Info) Description 12/07/2024 11:00 AM CDT Procedure Visit [facility] - Neurology - [place] [address] [place] [address] Kvng Jaeger MD [address] [place] [address] documented as of this encounter Visit Diagnoses Not on filedocumented in this encounter Additional Health Concerns Assessment Noted Time PHQ-9 Depression Total Score: 0 02/04/20 21 1:00 PM CDT documented as of this encounter Care Teams Pipe Finishing Supervisor Relationship Specialty Start Date End Date Tariq Goyal MD [address] [place] [address] PCP - General Family Medicine 08/31/24 Kvng Jaeger MD [address] [place] [address] Consulting Physician Neurology 04/12/23 Ela Kim APRN, [facility] [address] [place] [address] Nurse Practitioner Advanced Practice Nurse 03/15/22 Pablo Mora MD #[address] [address] Consulting Physician Urology 02/03/24 documented as of this encounter
--- OUTSIDE RECORDS SUMMARY | 2024-10-25 18:26 | XMS_ITS | Encounter Summary ---
Author Organization [facility] Address [address] [place] [address] Phone Care Team Providers Care Communication Equipment Repairer Name Role Phone Enzo Holloway MD Primary Care Provider [phone] Kvng Jaeger MD Unavailable [phone] Ela Kim APRN, [employer] SUPERVISOR Unavailable [phone] Tariq Goyal MD Primary Care Provider [phone] Pablo Mora MD Unavailable [phone] Enzo Holloway MD Primary Care Provider [phone] Tariq Goyal MD Primary Care Provider [phone] Reason for Visit * Reason Comments Medication Refill Encounter Details Date Type Department Care Team (Late st Contact Info) Description 11/21/2023 Refill [facility] - Neurology [facility] #2 [place] [phone] Ela Kim APRN, COOLER SERVICE SUPERVISOR [address] [place] [address] Medication Refill Social History Tobacco Use Types Packs/Day Years Used Date Smoking Tobacco: Every Day Cigarettes 0.3 32.6 Started: 04/01/1992 Smokeless Tobacco: Never Comments:2 cigarettes per da y Alcohol Use Standard Drinks/Week Comments Yes 0 (1 standard drink = 0.6 oz pur e alcohol) rare PHQ-2 Answer Date Recorded Total Score - Questions 1-9 0 01/25 Education Answer Date Recorded What is the highest level of school you have completed or the highest degree you have received? 12th grade 12/14/2022 Sexually Active Control Partners Comments Yes Sex and Gender Information Value Date Recorded Sex Assigned at Not on file Legal Sex Male 9:24 PM CDT Gender Identity Not on file Sexual Orientation Not on file documented as of this encounter Miscellaneous Notes * Telephone Encounter - Andreia Valdes RN - 11/22/2023 8:06 AM CDT Medication(s) refilled and signed per [facility] Chronic Medication Refill Standing Order for Pediatricand Adult Patients. Requested Prescriptions Pending Prescriptions Disp Refills verapamil (COVERA HS) 180 MG CAPSULE SR 24 HR [Pharmacy Med Name: VERAPAMIL SR 180 MG CAPSULE] 30 Capsule 2 Sig: TAKE 1 CAPSULE BY MOUTH EVERY DAY Calcium-Channel Blockers Protocol Passed - 11/21/2023 12:47 AM Passed - BP on record in the past year Clinician-entered: BP Readings from Last 3 Encounters: 09/13/23 122/78 01/20/23 136/80 12/16/22 (!) 148/104 Patient-entered: No data recorded Passed - Visit with relevant provider in past 12 months or upcoming 90 days Recent Visits Date Type Provider Dept 09/23/23 Procedure Visit Kvng Jaeger MD [facility] Neurology [facility] [address] 09/13/23 Office Visit Ela Kim APRN, COOLER SERVICE SUPERVISOR [facility] [place] [facility] [address] 07/01/23 Procedure [facility] [place] [facility] [place] [place] [facility] [address] 04/01/23 Procedure Visit [facility] [place] [facility] [place] [place] [facility] [address] 01/20/23 Office Visit Ela Kim APRN, [place] [facility] [place] [place] [facility] [address] 01/07/23 Procedure Visit [facility] [place] [facility] [place] [place] [facility] [address] 12/14/22 Office Visit Enzo Holloway MD [facility] Showing recent visits within past 365 days and meeting all other requirements Future Appointments Date Type Provider Dept 12/16/23 Appointment Enzo Holloway MD [facility] 12/23/23 Appointment Kvng Jaeger MD [facility] future appointments within next 90 days and meeting all other requirements documented in this encounter Plan of Treatment Upcoming Encounters Date Type Department Care Team (Late st Contact Info) Description 12/07/2024 11:00 AM CDT Procedure Visit [facility] - [facility]rology - [place] [address] [place] [address] Kvng Jaeger MD [address] [place] [address] documented as of this encounter Visit Diagnoses Diagnosis Chronic migraine w/o aura w/o status migrainosus, not intractable Chronic migraine without aura, without mention of intractable migraine without mention of status migrainosus Primary hypertension Unspecified essential hypertension documented in this encounter Additional Health Concerns Assessment Noted Time PHQ-9 Depression Total Score: 0 02/04/20 21 1:00 PM CDT documented as of this encounter Care Teams Communication Equipment Repairer Relationship Specialty Start Date End Date Enzo Holloway MD #[address] [address] PCP - General Family Medicine 04/27/17 12/27/23 Tariq Goyal MD [address] [place] [address] PCP - General Family Medicine 12/28/23 04/02/24 Enzo Holloway MD #[address] [address] PCP - General Family Medicine 04/03/24 08/30/24 Tariq Goyal MD [address] [place] [address] PCP - General Family Medicine 08/31/24 Kvng Jaeger MD #1 [place] [address] Consulting Physician Neurology 04/12/23 Ela Kim APRN, [employer] SERVICE SUPERVISOR [address] [place] [address] Nurse Practitioner Advanced Practice Nurse 03/15/22 Pablo Mora MD #[address] [address] Consulting Physician Urology 02/03/24 documented as of this encounter
--- OUTSIDE RECORDS SUMMARY | 2024-10-25 18:26 | XMS_ITS | Clinical Summary ---
Author Organization [facility] Address [address] [place] [address] Phone Care Team Providers Care Appraiser Land Name Role Phone Kvng Jaeger MD Unavailable [phone] Ela Kim APRN, SLOT SHIFT MANAGER Unavailable [phone] Pablo Mora MD Unavailable [phone] Tariq Goyal MD Primary Care Provider [phone] Allergies Active Allergy Reactions Criticality Noted Date Comments Aripiprazole Anxiety 10/14/2021 Ketorolac Other (see Comments) 06/16/2018 Other reaction(s): Other Swelling Pregabalin Hallucinations 08/07/2018 Ketorolac Tromethamine Anaphylaxis 03/09/2021 Medications MEDICAL CANNABIS Act gregoria clindamycin (CLEOCIN T) 1 % Lotion Apply 2 times daily. use thin film on affected area Active tretinoin (RETIN-A) 0.05 % Cream USE A PEA SIZED AMOUNT TO AFFECTS AREA AT NIGHT 09/20/19 Active omeprazole (PriLOSEC) 20 MG CAPSULE DELAYED RELEASEIndicatio ns:Gastroesophag eal reflux disease without esophagitis TAKE 1 CAPSULE BY MOUTH TWICE A DAY 60 Capsule 1 06/22/20 Active Additional Information Patient taking differently: 20 mg Oral DAILY, Reported on 10/22/2024 Botox 200 units Recon Soln 155 Units by Intramuscular route every 90 days. 1 Each 3 12/15/19 23 Active celecoxib (CeleBREX) 100 MG Capsule Take 100 mg by mouth daily. 02/29/20 24 Active methocarbamol (ROBAXIN) 500 MG Tablet TAKE 1 (ONE) TABLET BY MOUTH EVERY 8 HOURS Active HYDROcodone-acet aminophen (NORCO) 10-325 MG TabletIndication s:Acute cystitis Take 1 Tablet by mouth every 8 hours as needed for Moderate or more severe pain. 12 Tablet 04/26/20 24 Active polyethylene glycol (GLYCOLAX, MIRALAX) 17 g PackIndications: Constipation Take 1 Packet by mouth 2 times daily as needed for Constipation - 1st line. Dissolve in 4-8 oz of liquid. Indications: Constipation 90 Packet 04/26/20 24 Active senna (SENOKOT) 8.6 MG Tablet Take 1 Tablet by mouth 2 times daily as needed for Constipation - 2nd line. 30 Tablet 04/26/20 24 Active Additional Information Patient not taking.Reported on 10/22/2024 verapamil (COVERA HS) 180 MG CAPSULE SR 24 HRIndications:Ch ronic migraine w/o aura w/o status migrainosus, not intractable,Prim consuelo hypertension TAKE 1 CAPSULE BY MOUTH EVERY DAY 30 Capsule 2 05/09/20 24 Active Additional Information Patient not taking.Reported on 10/22/2024 gabapentin (NEURONTIN) 300 MG CapsuleIndicatio ns:Neuropathy TAKE 1 CAPSULE BY MOUTH THREE TIMES A DAY 90 Capsule 3 08/16/19 25 Active amLODIPine (NORVASC) 10 MG Tablet Take 10 mg by mouth daily. 08/13/19 25 Active buPROPion (WELLBUTRIN) 300 MG TABLET SR 24 HR XL tablet Take 300 mg by mouth every morning. 08/15/19 25 Active hydroCHLOROthiaz sun 25 MG Tablet Take 25 mg by mouth daily. 08/10/19 25 Active metoprolol tartrate (LOPRESSOR) 25 MG Tablet 12.5 MG (1/2 X 25 MG) ORALLY TWICE A DAY 08/15/19 25 Active Nurtec 75 MG TABLET DISPERSIBLEIndic ations:Chronic migraine without aura, not intractable, without status migrainosus TAKE 1 TABLET BY MOUTH EVERY 48 HOURS NEEDED FOR OTHER (MIGRAINE) FOR UP TO 30 DAYS. 8 Tablet 2 09/25/19 25 Active tadalafil (Cialis) 10 MG Tablet Take 10 mg by mouth as needed. Active ALPRAZolam (Xanax) 0.25 MG Tablet Take 0.5 mg by mouth daily as needed. Active Active Problems Problem Noted Date Diagnosed Date Urinary tract infection 04/23/2024 Nephrolithiasis 04/23/2024 Hypokalemia 04/23/2024 Hypertension 04/23/2024 Neuropathy 04/23/2024 GERD (gastroesophageal reflux disease) Diverticulosis 05/18/2021 Early satiety 05/18/2021 Grade I hemorrhoids 04/01/2020 Abdominal pain 04/01/2020 Diarrhea 04/01/2020 Current moderate episode of major depressive disorder without prior episode 07/14/2018 Other hemorrhoids 07/14/2018 Chronic idiopathic constipation 07/14/2018 Physical exam 04/27/2017 Chronic midline low back pain with bilateral sci atica 04/27/2017 Acne vulgaris 04/27/2017 Tobacco abuse 04/27/2017 Encounters Date Type Department Care Team Description 10/23/2024 Hospital Encounter [facility] Periop [address] [facility] [place] [address] Pablo Mora MD 10/22/2024 Telephone [facility] PHYSICIAN [facility] UROLOGY [address]2 [facility] [place] [address] Pablo Mora MD 10/22/2024 Travel 09/21/2024 Refill [facility] - Neurology - [place] [address] [facility] [place] [address] Ela Kim APRN, SLOT SHIFT MANAGER Medication Refill 09/19/2024 Telephone [facility] [address]2 [facility] [place] [address] Pablo Mora MD 09/07/2024 1:00 PM CDT Procedure Visit [facility] PHYSICIAN [facility] [facility] [place] [address] Pablo Mora MD Gross hematuria (Primary Dx) Discharge Disposition: Discharged to home or Selfcare 09/07/2024 Travel 08/31/2024 9:00 AM CHILLER HAND [facility] [address] [place] [address] Kvng Jaeger MD Chronic migraine without aura, not intractable, without status migrainosus (Primary Dx) Discharge Disposition: Discharged to home or Selfcare 08/31/2024 [facility] [place] [address] Ela Kim APRN, SLOT SHIFT MANAGER 08/31/2024 Travel 08/15/2024 [facility] [address] [place] [address] Ela Kim WALLPAPER INSPECTOR, SLOT SHIFT MANAGER Medication Refill from Last 3 Months Immunizations Immunization Administration Dates Next Due Covid-19, Mrna, Lnp-s, Pf, 3 0 Mcg/0.3 Ml Dose ([employer]) 09/20/2020,08/30/2020 DTP Vaccine 10/13/1988, 5,04/02/1984,1983,02/02/1984 Influenza Vaccine 06/15/2018,04/27/2017 Influenza Vaccine greater than 3 yrs 05/12/2020 Influenza Vaccine, MDCK,quad rivalent, pres free 05/12/2020 Influenza Vaccine, Quadrivalent, PF 06/14/2018,1 06/27/2016 Influenza, Injectable, Quadrivalent 03/16/2016 Influenza, Seasonal, Injecta ble, Undefined 05/12/2020 MMR Vaccine 04/13/1991,02/09/1985 OPV 10/13/1988, 5,04/02/1984,1983,02/02/1984 TD VACCINE 08/19/1992 TDAP Vaccine 07/14/2018 Tetanus Vaccine 08/19/1992 Family History Medical History Relation Name Comments Depression Brother Diabetes Father OTHER Father COVID No Known Problems Half-Brother Lung Cancer Maternal Grandfather Lung Cancer Maternal Grandmother Cancer Mother throat Diabetes Mother Heart Disease Mother High Cholesterol Mother Hypertension Mother Kidney Disease Mother Parkinsonism Mother Skin Cancer Paternal Grandfather Relation Name Status Comments Brother Father Half-Brother Alive Maternal Grandfather Maternal Grandmother Mother Paternal Grandfather Paternal Grandmother Social History Tobacco Use Types Packs/Day Years Used Date Smoking Tobacco: Every Day Cigarettes 0.3 32.6 Started: 04/01/1992 Smokeless Tobacco: Never Tobacco Cessation:Ready to Q uit: Not Asked; Counseling Given: Not Answered Comments:2 cigarettes per day Alcohol Use Standard Drinks/Week Comments Yes 0 (1 standard drink = 0.6 oz pur e alcohol) occasional C Utilities Answer Date Recorded In the past 12 months has th e electric, gas, oil, or water company [...] declined 04/23/2024 How often do you attend gnosticism or sabianist serv ices? Patient declined 04/23/2024 Do you belong to any clubs o r organizations such as gnosticism groups, unions, fraternal or athletic groups, or [...] Total Score - Questions 1-9 0 01/25 [facility] - Occupational Stress [...] any time in the past 12 m [facility], were you homeless or living in a fpc (including now)? Patient declined 04/23/2024 Education Answer [...] on file Sexual Orientation Not on file Last Filed Vital Signs Vital Sign Reading Time Taken Comments Blood Pressure 150/94 09/07/2024 12:56 PM CDT Pulse 88 09/07/2024 12:56 PM CDT Temperature 36.5 C (97.7 F) 05/01/2024 10:25 AM CHILLER HAND Respiratory Rate 12 09/07/2024 12:56 PM CDT Oxygen Saturation 96% 09/07/2024 12:56 PM CDT Inhaled Oxygen Concentration - - Weight 104.3 kg (230 lb) 10/22/2024 9:00 AM CDT Height 177.8 cm (5' 10 ) 10/22/2024 9:00 AM CDT Body Mass Index 33 10/22/2024 9:00 AM CDT Plan of Treatment Upcoming Encounters Date Type Department Care Team (Late st Contact Info) Description 12/07/2024 11:00 AM CDT Procedure [facility] [address] [place] [address] Kvng Jaeger MD [address] [place] [address] Health Maintenance Due Date Last Done Comments Hepatitis C Virus (HCV) Screening 1983 Hepatitis B Immunization (1 of 3 - 19+ 3-dose series) 11/15/2002 Pneumococcal Immunization Combined (1 of 2 - PCV) 11/15/2002 SARS-COV-2 Immunization ( season) 2024 06/08/2021, 09/20/2020, 08/30/2020 Influenza Immunization (Season Ended) 2025 05/12/2020, 05/12/2020, 05/12/2020, Additional history exists DTaP/Tdap/Td Immunization (6 - Td or Tdap) 07/14/2028 07/14/2018, 08/19/1992, 10/13/1988, Additional history exists Td Immunization Every 10 Years (Adults With 1 Tdap) 07/14/2028 07/14/2018, 08/19/1992 Respiratory Syncytial Virus (RSV) Immunization (Adult) (1 - 1-dose 75+ series) 11/15/2058 Meningococcal Immunization (ACWY) Aged Out No longer eligible based on patient's age to complete this topic Rotavirus Immunization Aged Out No lo nger eligible based on patient's age to complete this topic Procedures Procedure Name Priority Date/Time Associated Diagnosis Comments CULTURE, URINE Routine 09/07/2024 1:37 PM CDT Gross hematuria POCT UA AUTOMATED W/O MICRO Routine 09/07/2024 12:57 PM CDT Gross hematuria CHEMODENERV MUSCLE(S) BILAT FACIAL/TRIGEMINAL/CE RV SPINE Routine 08/31/2024 9:00 AM CHILLER HAND Chronic migraine without aura, not intractable, without status migrainosus from Last 3 Months Results * CULTURE, URINE (09/07/2024 1:37 PM CDT) CULTURE RESULTS No growth final 09/08/2024 9:44 PM CDT [facility] Culture URINE SPECIMEN OBTAINED BY CLEAN CATCH PROCEDURE / Unknown Non-Phlebotomy Collection / Unknown 09/07/2024 1:37 PM CDT 09/07/2024 1:37 PM CDT Pablo Agustin MD MICROBIOLOGY - GENERAL ORDERAB LES Final Result [facility] [address] [place] [address], * POCT UA AUTOMATED W/O MICRO (09/07/2024 12:57 PM CDT) POC UA SPECIFIC GRAVITY 1.000 URINE PH 6.5 5.0 - 9.0 POC URINE LEUKOCYTES Negative Negative Jammie/uL POC URINE NITRITE Negative Negative POC URINE PROTEIN Negative Negative mg/dL POC URINE GLUCOSE Norm Negative, Norm mg/dL POC URINE KETONE Negative Negative mg/dL POC URINE UROBILINOGEN Norm Norm, 0.2 E.U./dL (mg/dL), 1 E.U./dL (mg/dL) POC URINE BILIRUBIN Negative Negative mg/dL POC URINE BLOOD INSTRUMENT Negative Negative Marcelo/uL POC URINE COLOR Yellow POC URINE CLARITY Clear Urine 09/07/2024 12:5 7 PM CDT Pablo Agustin MD POINT OF CARE TESTING (MANUAL) Final Result * CHEMODENERV MUSCLE(S) BILAT FACIAL/TRIGEMINAL/CERV SPINE (08/31/2024 9:00 AM CHILLER HAND) Narrative Kvng Jaeger MD - 08/31/2024 9:00 AM CHILLER HAND Kvng Jaeger MD 09/26/2024 7:24 PM Bang presents for administration of botox for treatment of chronic migraines. Frequency of headaches compared to pre-Botox: significantly improved Function since receiving Botox: significantly improved Wasted amount of Botox: 45 Her skin was prepped with an alcohol wipe. Botox was diluted with 200 units into 4 ml saline and administered with a 30 gauge 1/2 inch needle to the following sites: To the corrugators 10 units was divided into two sites. To the procerus 5 units was admistered to 1 site To the frontalis 20 units was divided into 4 sites To the temporalis 40 units was divided into 8 sites To the Occipitalis 30 units was divided into 6 sites To the cervical paraspinals 20 units divided into 4 sites To the trapezius 30 units divided into 6 sites. This procedure has been fully reviewed with the patient and written informed consent has been obtained. Patient tolerated the procedure with no complications. Kvng Jaeger MD [place] - SURGERY Final Result from Last 3 Months Insurance MEDICAID [place] Advance Directives * Full Code (Latest Code Status on File) Date Activated Date Inactivated Comments 04/23/2024 9:06 PM CPR-Full Trinh tment: FULL ARREST: Attempt Resuscitation/CPR wit intubation and mechanical ventilation. PRE-ARREST: Use entire range of life support measures to stabilize the patient. Care Teams Appraiser Land Relationship Specialty Start Date End Date Tariq Goyal MD [address] [place] [address] PCP - General Family Medicine 08/31/24 Kvng Jaeger MD [address] [place] [address] Consulting Physician Neurology 04/12/23 Ela Kim, WALLPAPER INSPECTOR, SLOT SHIFT MANAGER [address] [place] [address] Nurse Practitioner Advanced Practice Nurse 03/15/22 Pablo Mora MD [address] [address] Consulting Physician Urology 02/03/24
--- OUTSIDE RECORDS SUMMARY | 2024-10-25 18:26 | XMS_ITS | Encounter Summary ---
Author Organization [facility] Address [address] [place] [address] Phone Care Team Providers Care Taker Off Name Role Phone Enzo Holloway MD Primary Care Provider [phone] Kvng Jaeger MD Unavailable [phone] Ela Kim APRN, CAT HOOKER Unavailable [phone] Tariq Goyal MD Primary Care Provider [phone] Pablo Mora MD Unavailable [phone] Enzo Holloway MD Primary Care Provider [phone] Tariq Goyal MD Primary Care Provider [phone] Reason for Visit * Reason Comments Medication Refill Encounter Details Date Type Department Care Team (Late st Contact Info) Description 12/19/2021 Refill [facility] - Neurology [facility] [address] [place] [address] Ela Kim APRN, CAT HOOKER [address] [place] [address] Medication Refill Social History Tobacco Use Types [...] Description 12/07/2024 11:00 AM CDT [facility] [address] [place] [address] Kvng Jaeger MD [address] [place] [address] documented as of this encounter Visit Diagnoses Not on filedocumented in this encounter Additional Health Concerns Assessment Noted Time PHQ-9 Depression Total Score: 0 02/04/20 21 1:00 PM CDT documented as of this encounter Care Teams Taker Off Relationship Specialty Start Date End Date Enzo Holloway MD [address] [address] PCP - General Family Medicine 04/27/17 12/27/23 Tariq Goyal MD [address] [place] [address] PCP - General Family Medicine 12/28/23 04/02/24 Enzo Holloway MD #[address] [address] PCP - General Family Medicine 04/03/24 08/30/24 Tariq Goyal MD [address] [place] [address] PCP - General Family Medicine 08/31/24 Kvng Jaeger MD [address] [place] [address] Consulting Physician Neurology 04/12/23 Ela Kim APRN, CAT HOOKER [address] [place] [address] Nurse Practitioner Advanced Practice Nurse 03/15/22 Pablo Mora MD #[address] [address] Consulting Physician Urology 02/03/24 documented as of this encounter
--- OUTSIDE RECORDS SUMMARY | 2024-10-25 18:26 | XMS_ITS | Encounter Summary ---
Author Organization [facility] Address [address] [place] [address] Phone Care Team Providers Care Nurse Auditor Name Role Phone Enzo Holloway MD Primary Care Provider [phone] Kvng Jaeger MD Unavailable [phone] Ela Kim APRN, STUDENT AFFAIRS VICE PRESIDENT Unavailable [phone] Tariq Goyal MD Primary Care Provider [phone] Pablo Mora MD Unavailable [phone] Enzo Holloway MD Primary Care Provider [phone] Tariq Goyal MD Primary Care Provider [phone] Reason for Visit * Reason Comments Medication Refill Encounter Details Date Type Department Care Team (Late st Contact Info) Description 02/12/2022 Refill [facility] - Neurology [facility] [address] [place] [address] Ela Kim APRN, STUDENT AFFAIRS VICE PRESIDENT [address] [place] [address] Medication Refill Social History Tobacco Use Types [...] Description 12/07/2024 11:00 AM CDT Procedure Visit [facility] - Neurology [facility] [address] [place] [address] Kvng Jaeger MD [address] [place] [address] documented as of this encounter Visit Diagnoses Diagnosis Chronic migraine w/o aura w/o status migrainosus, not intractable Chronic migraine without aura, without mention of intractable migraine without mention of status migrainosus documented in this encounter Additional Health Concerns Assessment Noted Time PHQ-9 Depression Total Score: 0 02/04/20 21 1:00 PM CDT documented as of this encounter Care Teams Nurse Auditor Relationship Specialty Start Date End Date Enzo Holloway MD #[address] [address] PCP - General Family Medicine 04/27/17 12/27/23 Tariq Goyal MD [address] [place] [address] PCP - General Family Medicine 12/28/23 04/02/24 Enzo Holloway MD #[address] [address] PCP - General Family Medicine 04/03/24 08/30/24 Tariq Goyal MD [address] [place] [address] PCP - General Family Medicine 08/31/24 Kvng Jaeger MD [address] [place] [address] Consulting Physician Neurology 04/12/23 Ela Kim, DRAWBRIDGE OPERATOR, STUDENT AFFAIRS VICE PRESIDENT [address] [place] [address] Nurse Practitioner Advanced Practice Nurse 03/15/22 Pablo Mora MD #[address] [address] Consulting Physician Urology 02/03/24 documented as of this encounter
--- OUTSIDE RECORDS SUMMARY | 2024-10-25 18:26 | XMS_ITS | Encounter Summary ---
Author Organization [facility] Address [address] [place] [address] Phone Care Team Providers Care Certified Surgical First Assistant Name Role Phone Enzo Holloway MD Primary Care Provider [phone] Kvng Jaeger MD Unavailable [phone] Ela Kim APRN, APPLICATION TESTER Unavailable [phone] Tariq Goyal MD Primary Care Provider [phone] Pablo Mora MD Unavailable [phone] Enzo Holloway MD Primary Care Provider [phone] Tariq Goyal MD Primary Care Provider [phone] Reason for Visit * Reason Comments Medication Refill Encounter Details Date Type Department Care Team (Late st Contact Info) Description 03/05/2022 Refill [facility] - Neurology [facility] [address] [place] [address] Ela Kim APRN, APPLICATION TESTER [address] [place] [address] Medication Refill Social History Tobacco Use Types [...] suspected to have Coronavirus/COVID-19? No / Unsure 02/16/2022 3:47 PM CDT documented as of this encounter Plan of Treatment Upcoming Encounters Date Type Department Care Team (Late st Contact Info) Description 12/07/2024 11:00 AM CDT Procedure Visit [facility] - Neurology [facility] [address] [place] [address] Kvng Jaeger MD [address] [place] [address] documented as of this encounter Visit Diagnoses Not on filedocumented in this encounter Additional Health Concerns Assessment Noted Time PHQ-9 Depression Total Score: 0 02/04/20 21 1:00 PM CDT documented as of this encounter Care Teams Certified Surgical First Assistant Relationship Specialty Start Date End Date Enzo Holloway MD #[address] [address] PCP - General Family Medicine 04/27/17 12/27/23 Tariq Goyal MD [address] [place] [address] PCP - General Family Medicine 12/28/23 04/02/24 Enzo Holloway MD #[address] [address] PCP - General Family Medicine 04/03/24 08/30/24 Tariq Goyal MD [address] [place] [address] PCP - General Family Medicine 08/31/24 Kvng Jaeger MD [address] [place] [address] Consulting Physician Neurology 04/12/23 Ela Kim APRN, APPLICATION TESTER [address] [place] [address] Nurse Practitioner Advanced Practice Nurse 03/15/22 Pablo Mora MD #[address] [address] Consulting Physician Urology 02/03/24 documented as of this encounter
--- OUTSIDE RECORDS SUMMARY | 2024-10-25 18:27 | XMS_ITS | Encounter Summary ---
Author Organization [facility] Address [address] [facility] [place] [address] Phone Care Team Providers Care Chief Substation Operator Name Role Phone Enzo Holloway MD Primary Care Provider [phone] Kvng Jaeger MD Unavailable [phone] Ela Kim APRN, [facility] Unavailable [phone] Tariq Goyal MD Primary Care Provider [phone] Pablo Mora MD Unavailable [phone] Enzo Holloway MD Primary Care Provider [phone] Tariq Goyal MD Primary Care Provider [phone] Reason for Visit * Reason Comments Medication Refill Encounter Details Date Type Department Care Team (Late st Contact Info) Description 04/29/2021 [facility]ill [facility] - [place] [address] [place] [address] Danya Lozano November, PAC [address] [place] [address] Medication Refill Social History Tobacco Use Types Packs/Day Years Used Date Smoking Tobacco: Every Day Cigarettes 0.3 32.6 Started: 04/01/1992 Smokeless Tobacco: Never Comments:3 per day Alcohol Use Standard Drinks/Week Comments [...] have Coronavirus / COVID-19? No / Unsure 04/28/2021 8:44 AM CDT documented as of this encounter Miscellaneous Notes * Telephone Encounter - Valerie Joyce RN - 05/04/2021 12:34 PM PROPERTY FIELD ADJUSTER Medication refilled and signed per [facility] chronic medication standing order for pediatric and adult patients. ERTY FIELD ADJUSTER * Telephone Encounter - Valerie Joyce RN - 05/04/2021 12:28 PM PROPERTY FIELD ADJUSTER Pharmacy requesting refill of: Requested Prescriptions Pending Prescriptions Disp Refills ??? omeprazole (PriLOSEC) 20 MG CAPSULE DELAYED RELEASE [Pharmacy Med Name: OMEPRAZOLE 20MG CPDR] 180 Capsule 1 Sig: TAKE ONE CAPSULE BY MOUTH TWICE A DAY Last fill: 05/15/2020 for 180 caps and 1 refill Patients last OV with GI: 05/15/2020 Next Office Visit with GI: 05/18/2021 ERTY FIELD ADJUSTER documented in this encounter Plan of Treatment Upcoming Encounters Date Type Department Care Team (Late st Contact Info) Description 12/07/2024 11:00 AM CDT [facility] [address] [place] [address] Kvng Jaeger MD [address] [place] [address] documented as of this encounter Visit Diagnoses Diagnosis Gastroesophageal reflux disease without esophagitis Esophageal reflux documented in this encounter Additional Health Concerns Assessment Noted Time PHQ-9 Depression Total Score: 0 02/04/20 21 1:00 PM CDT documented as of this encounter Care Teams Chief Substation Operator Relationship Specialty Start Date End Date Enzo Holloway MD #[address] [address] PCP - General Family Medicine 04/27/17 12/27/23 Tariq Goyal MD [address] [place] [address] PCP - General Family Medicine 12/28/23 04/02/24 Enzo Holloway MD #[address] [address] PCP - General Family Medicine 04/03/24 08/30/24 Tariq Goyal MD [address] [place] [address] PCP - General Family Medicine 08/31/24 Kvng Jaeger MD [address] [place] [address] Consulting Physician Neurology 04/12/23 Ela Kim, HR INTERN, GRATED CHEESE MAKER [address] [place] [address] Nurse Practitioner Advanced Practice Nurse 03/15/22 Pablo Mora MD #[address] [address] Consulting Physician Urology 02/03/24 documented as of this encounter
--- OUTSIDE RECORDS SUMMARY | 2024-10-25 18:56 | XMS_ITS | Encounter Summary ---
Author Organization [facility] Address [address] [facility] [address] Phone Care Team Providers Care Mailer Apprentice Name Role Phone Enzo Holloway MD Primary Care Provider [phone] Kvng Jaeger MD Unavailable [phone] Ela Kim APRN, [facility] Unavailable + [phone] Tariq Goyal MD Primary Care Provider [phone] Pablo Mora MD Unavailable [phone] Enzo Holloway MD Primary Care Provider [phone] Tariq Goyal MD Primary Care Provider [phone] Reason for Visit * Reason Comments Medication Refill Encounter Details Date Type Department Care Team (Late st Contact Info) Description 04/29/2021 [facility]ill [facility] - [place] [address]2 [place] [address] Danya Lozano November, PAC [address] [place] [address] Medication Refill Social History Tobacco Use Types [...] Valerie Joyce RN - 05/04/2021 12:34 PM [employer] Medication refilled and signed per [facility] medication standing order for pediatric and adult patients. [employer] * Telephone Encounter - Valerie Joyce RN - 05/04/2021 12:28 PM [employer] Pharmacy requesting refill of: Requested Prescriptions Pending Prescriptions Disp Refills ??? omeprazole (PriLOSEC) 20 MG CAPSULE DELAYED RELEASE [Pharmacy Med Name: OMEPRAZOLE 20MG CPDR] 180 Capsule 1 Sig: TAKE ONE CAPSULE BY MOUTH TWICE A DAY Last fill: 05/15/2020 for 180 caps and 1 refill Patients last OV with GI: 05/15/2020 Next Office Visit with GI: 05/18/2021 [employer] documented in this encounter Plan of Treatment Upcoming Encounters Date Type Department Care Team (Late st Contact Info) Description 12/07/2024 11:00 AM CDT [facility] #2 [place] [address] Kvng Jaeger MD [address]2 [place] [address] documented as of this encounter Visit Diagnoses Diagnosis Gastroesophageal reflux disease without esophagitis Esophageal reflux documented in this encounter Additional Health Concerns Assessment Noted Time PHQ-9 Depression Total Score: 0 02/04/20 21 1:00 PM CDT documented as of this encounter Care Teams Mailer Apprentice Relationship Specialty Start Date End Date Enzo Holloway MD #[address] [address] PCP - General Family Medicine 04/27/17 12/27/23 Tariq Goyal MD [address] [place] [address] PCP - General Family Medicine 12/28/23 04/02/24 Enzo Holloway MD #[address] [address] PCP - General Family Medicine 04/03/24 08/30/24 Tariq Goyal MD [address] [place] [address] PCP - General Family Medicine 08/31/24 Kvng Jaeger MD #1 [place] [address] Consulting Physician Neurology 04/12/23 Ela Kim, CURRICULUM DEVELOPER, BOAT CARPENTER MECHANIC [address]2 [place] [address] Nurse Practitioner Advanced Practice Nurse 03/15/22 Pablo Mora MD [address] [address] Consulting Physician Urology 02/03/24 documented as of this encounter
--- OUTSIDE RECORDS SUMMARY | 2024-10-25 18:56 | XMS_ITS | Encounter Summary ---
Author Organization [facility] Address [address] [place] [address] Phone Care Team Providers Care Real Estate Instructor Name Role Phone Enzo Holloway MD Primary Care Provider [phone] Kvng Jaeger MD Unavailable [phone] Ela Kim APRN, PROFESSOR OF SPECIAL EDUCATION Unavailable [phone] Tariq Goyal MD Primary Care Provider [phone] Pablo Mora MD Unavailable [phone] Enzo Holloway MD Primary Care Provider [phone] Tariq Goyal MD Primary Care Provider [phone] Reason for Visit * Reason Comments Medication Refill Encounter Details Date Type Department Care Team (Late st Contact Info) Description 11/21/2023 Refill [facility] - [facility] #2 [place] [address] Ela Kim APRN, PROFESSOR OF SPECIAL EDUCATION [address] [place] [address] Medication Refill Social History Tobacco Use Types [...] AM CDT Medication(s) refilled and signed per [facility] Chronic Medication Refill Standing Order for Pediatricand [...] Dept 09/23/23 Procedure Visit Kvng Jaeger MD [facility] Neurology [facility] [address] 09/13/23 Office Visit Ela Kim APRN, PROFESSOR OF SPECIAL EDUCATION [facility] Neu[facility] [address] 07/01/23 Procedure Visit Kvng Jaeger MD [facility] [address] 04/01/23 Procedure Visit Kvng Jaeger MD [facility] [address] 01/20/23 Office Visit Ela Kim APRN, [place] [facility] Neu[facility] [address] 01/07/23 Procedure Visit Kvng Jaeger MD [facility] [address] 12/14/22 Office Visit Enzo Holloway MD [facility] Showing recent visits within past 365 days and meeting all other requirements Future Appointments Date Type Provider Dept 12/16/23 Appointment Enzo Holloway MD [facility] 12/23/23 Appointment Kvng Jaeger MD [facility] Showing future appointments within next 90 days and meeting all other requirements documented in this encounter Plan of Treatment Upcoming Encounters Date Type Department Care Team (Late st Contact Info) Description 12/07/2024 11:00 AM CDT [facility] - [place] [address] [place] [address] Kvng Jaeger MD [address] [place] [address] documented as of this encounter Visit Diagnoses Diagnosis Chronic migraine w/o aura w/o status migrainosus, not intractable Chronic migraine without aura, without mention of intractable migraine without mention of status migrainosus Primary hypertension Unspecified essential hypertension documented in this encounter Additional Health Concerns Assessment Noted Time PHQ-9 Depression Total Score: 0 02/04/20 21 1:00 PM CDT documented as of this encounter Care Teams Real Estate Instructor Relationship Specialty Start Date End Date Enzo Holloway MD [address] [address] PCP - General Family Medicine 04/27/17 12/27/23 Tariq Goyal MD [address] [place] [address] PCP - General Family Medicine 12/28/23 04/02/24 Enzo Holloway MD #[address] [address] PCP - General Family Medicine 04/03/24 08/30/24 Tariq Goyal MD [address] [place] [address] PCP - General Family Medicine 08/31/24 Kvng Jaeger MD [address]1 [place] [address] Consulting Physician Neurology 04/12/23 Ela Kim APRN, PROFESSOR OF SPECIAL EDUCATION #[address] [place] [address] Nurse Practitioner Advanced Practice Nurse 03/15/22 Pablo Mora MD #[address] [address] Consulting Physician Urology 02/03/24 documented as of this encounter
--- OUTSIDE RECORDS SUMMARY | 2024-10-25 18:56 | XMS_ITS | Encounter Summary ---
Author Organization [facility] Address [address] [place] [address] Phone Care Team Providers Care Business Control Manager Name Role Phone Enzo Holloway MD Primary Care Provider [phone] Kvng Jaeger MD Unavailable [phone] Ela Kim APRN, LAMP WIRER Unavailable [phone] Tariq Goyal MD Primary Care Provider Pablo Mora MD Unavailable [phone] Enzo Holloway MD Primary Care Provider [phone] Tariq Goyal MD Primary Care Provider [phone] Reason for Visit * Reason Comments Medication Refill Encounter Details Date Type Department Care Team (Late st Contact Info) Description 07/13/2021 Refill [facility] - Neurology [facility] #2 [place] [id number] Ela Kim APRN, LAMP WIRER [address] [place] [address] Medication Refill Social History Tobacco Use Types [...] COVID-19? 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 documented as of this encounter Plan of Treatment Upcoming Encounters Date Type Department Care Team (Late st Contact Info) Description 12/07/2024 11:00 AM CDT Procedure Visit [facility] - Neurology [facility] #2 [place] [address] Kvng Jaeger MD [address] [place] [address] documented as of this encounter Visit Diagnoses Not on filedocumented in this encounter Additional Health Concerns Assessment Noted Time PHQ-9 Depression Total Score: 0 02/04/20 21 1:00 PM CDT documented as of this encounter Care Teams Business Control Manager Relationship Specialty Start Date End Date Enzo Holloway MD #[address] [address] PCP - General Family Medicine 04/27/17 12/27/23 Tariq Goyal MD [address] [place] [address] PCP - General Family Medicine 12/28/23 04/02/24 Enzo Holloway MD #[address] [address] PCP - General Family Medicine 04/03/24 08/30/24 Tariq Goyal MD [address] [place] [address] PCP - General Family Medicine 08/31/24 Kvng Jaeger MD #1 [place] [address] Consulting Physician Neurology 04/12/23 Ela Kim, SUPERVISOR FERTILIZER, LAMP WIRER [address] [place] [address] Nurse Practitioner Advanced Practice Nurse 03/15/22 Pablo Mora MD #[address] [address] Consulting Physician Urology 02/03/24 documented as of this encounter
--- OUTSIDE RECORDS SUMMARY | 2024-10-25 18:56 | XMS_ITS | Encounter Summary ---
Author Organization [facility] Address [address] [place] [address] Phone Care Team Providers Care Burnishing Machine Operator Name Role Phone Enzo Holloway MD Primary Care Provider [phone] Kvng Jaeger MD Unavailable [phone] Ela Kim APRN, VEGETABLE SORTER Unavailable Tariq Goyal MD Primary Care Provider [phone] Pablo Mora MD Unavailable [phone] Enzo Holloway MD Primary Care Provider [phone] Tariq Goyal MD Primary Care Provider [phone] Reason for Visit * Reason Comments Medication Refill Encounter Details Date Type Department Care Team (Late st Contact Info) Description 10/19/2022 Refill [facility] - Neurology [facility] #2 [place] [address] Ela Kim APRN, VEGETABLE SORTER [address] [place] [address] Medication Refill Social History Tobacco Use Types [...] Dept 07/30/22 Procedure Visit Kvng Jaeger MD [facility] Neurology [facility] [address] 05/04/22 Office Visit Ela Kim APRN, CNS [facility] Neurology [facility] [address] 03/15/22 Office Visit Ela Kim APRN, CNS [facility] Neurology [facility] [address] 10/22/21 Office Visit Ela Kim APRN, CNS [facility] Neurology [facility] [place] Showing recent visits within past 365 days and meeting all other requirements Future Appointments Date Type Provider Dept 10/21/22 Appointment Ela Kim APRN, CNS [facility] [address] 10/22/22 Appointment Kvng Jaeger MD [facility] Neurology [facility] Showing future appointments within next 90 days and meeting all other requirements documented in this encounter Plan of Treatment Upcoming Encounters Date Type Department Care Team (Late st Contact Info) Description 12/07/2024 11:00 AM CDT [facility] #2 [place] [address] Kvng Jaeger MD #2 [place] [address] documented as of this encounter Visit Diagnoses Diagnosis Chronic migraine without aura, not intractable, without status migrainosus documented in this encounter Additional Health Concerns Assessment Noted Time PHQ-9 Depression Total Score: 0 02/04/20 21 1:00 PM CDT documented as of this encounter Care Teams Burnishing Machine Operator Relationship Specialty Start Date End Date Enzo Holloway MD #[address] [address] PCP - General Family Medicine 04/27/17 12/27/23 Tariq Goyal MD [address] [place] [address] PCP - General Family Medicine 12/28/23 04/02/24 Enzo Holloway MD #[address] [address] PCP - General Family Medicine 04/03/24 08/30/24 Tariq Goyal MD [address] [place] [address] PCP - General Family Medicine 08/31/24 Kvng Jaeger MD #1 [place] [address] Consulting Physician Neurology 04/12/23 Ela Kim APRN, VEGETABLE SORTER [address] [place] [address] Nurse Practitioner Advanced Practice Nurse 03/15/22 Pablo Mora MD [address] [place], [facility] [address] [place] [address] Consulting Physician Urology 02/03/24 documented as of this encounter
--- OUTSIDE RECORDS SUMMARY | 2024-10-25 18:56 | XMS_ITS | Encounter Summary ---
Author Organization [facility] Address [address] [place] [address] Phone Care Team Providers Care Charter Boat Captain Name Role Phone Enzo Holloway MD Primary Care Provider [phone] Kvng Jaeger MD Unavailable [phone] Ela iKm APRN, NEWSPAPER MANAGER Unavailable Tariq Goyal MD Primary Care Provider [phone] Pablo Mora MD Unavailable [phone] Enzo Holloway MD Primary Care Provider [phone] Tariq Goyal MD Primary Care Provider [phone] Reason for Visit * Reason Comments Medication Refill Encounter Details Date Type Department Care Team (Late st Contact Info) Description 06/19/2022 Refill [facility] - Neurology [facility] #2 [place] [address] Ela Kim APRN, NEWSPAPER MANAGER #[address] [place] [address] Medication Refill Social History Tobacco Use Types [...] Description 12/07/2024 11:00 AM CDT Procedure Visit [facility] - Neurology [facility] #2 [place] [address] Kvng Jaeger MD [address] [place] [address] documented as of this encounter Visit Diagnoses Diagnosis Acute post-traumatic headache, not intractable Acute post-traumatic headache Primary hypertension Unspecified essential hypertension documented in this encounter Additional Health Concerns Assessment Noted Time PHQ-9 Depression Total Score: 0 02/04/20 21 1:00 PM CDT documented as of this encounter Care Teams Charter Boat Captain Relationship Specialty Start Date End Date Enzo Holloway MD #[address] [address] PCP - General Family Medicine 04/27/17 12/27/23 Tariq Goyal MD [address] [place] [address] PCP - General Family Medicine 12/28/23 04/02/24 Enzo Holloway MD #[address] [address] PCP - General Family Medicine 04/03/24 08/30/24 Tariq Goyal MD [address] [place] [address] PCP - General Family Medicine 08/31/24 Kvng Jaeger MD #1 [place] [address] Consulting Physician Neurology 04/12/23 Ela Kim APRN, NEWSPAPER MANAGER #[address] [place] [address] Nurse Practitioner Advanced Practice Nurse 03/15/22 Pablo Mora MD #[address] [address] Consulting Physician Urology 02/03/24 documented as of this encounter
--- OUTSIDE RECORDS SUMMARY | 2024-10-25 18:56 | XMS_ITS | Encounter Summary ---
Author Organization [facility] Address [address] [place] [address] Phone Care Team Providers Care Emt Dispatcher Name Role Phone Enzo Holloway MD Primary Care Provider [phone] Kvng Jaeger MD Unavailable [phone] Ela Kim APRN, PLY CUTTER Unavailable [phone] Tariq Goyal MD Primary Care Provider [phone] Pablo Mora MD Unavailable [phone] Enzo Holloway MD Primary Care Provider [phone] Tariq Goyal MD Primary Care Provider [phone] Reason for Visit * Reason Comments Medication Refill Encounter Details Date Type Department Care Team (Late st Contact Info) Description 12/19/2021 Refill [facility] - Neurology [facility] #2 [place] [address] Ela Kim APRN, PLY CUTTER #2 [place] [address] Medication Refill Social History Tobacco Use Types [...] Description 12/07/2024 11:00 AM CDT [facility] #2 [place] [address] Kvng Jaeger MD #2 [place] [address] documented as of this encounter Visit Diagnoses Not on filedocumented in this encounter Additional Health Concerns Assessment Noted Time PHQ-9 Depression Total Score: 0 02/04/20 21 1:00 PM CDT documented as of this encounter Care Teams Emt Dispatcher Relationship Specialty Start Date End Date Enzo Holloway MD #[address] [address] PCP - General Family Medicine 04/27/17 12/27/23 Tariq Goyal MD [address] [place] [address] PCP - General Family Medicine 12/28/23 04/02/24 Enzo Holloway MD #[address] [address] PCP - General Family Medicine 04/03/24 08/30/24 Tariq Goyal MD [address] [place] [address] PCP - General Family Medicine 08/31/24 Kvng Jaeger MD #1 [place] [address] Consulting Physician Neurology 04/12/23 Ela Kim APRN, PLY CUTTER [address] [place] [address] Nurse Practitioner Advanced Practice Nurse 03/15/22 Pablo Mora MD #[address] [address] Consulting Physician Urology 02/03/24 documented as of this encounter
--- OUTSIDE RECORDS SUMMARY | 2024-10-25 18:56 | XMS_ITS | Encounter Summary ---
Author Organization [facility] Address [address] [facility] [place] [address] Phone Care Team Providers Care Bag Machine Adjuster Name Role Phone Enzo Holloway MD Primary Care Provider [phone] Kvng Jaeger MD Unavailable [phone] Ela Kim APRN, [facility] Unavailable + [phone] Tariq Goyal MD Primary Care Provider [phone] Pablo Mora MD Unavailable [phone] Enzo Holloway MD Primary Care Provider [phone] Tariq Goyal MD Primary Care Provider [phone] Reason for Visit * Reason Comments Medication Refill Encounter Details Date Type Department Care Team (Late st Contact Info) Description 06/01/2022 [facility]ill [facility] - [place] #[address] [place] [address] Danya Lozano November, PAC [address] [place] [address] Medication Refill Social History Tobacco Use Types [...] Coronavirus/COVID-19? No / Unsure 05/04/2022 10:32 AM CO TEACHER documented as of this encounter Miscellaneous Notes * Telephone Encounter - Vicky Coleman - 06/03/2022 1:30 PM CST Apt scheduled TEACHER * Telephone Encounter - Alissa Sanchez APRN, CNP - 06/02/2022 12:38 PM CST Needs appointment. Last office visit was in 04/2021 TEACHER * Telephone Encounter - Veronika Butterfield RN [...] 04/28/21 Next Office Visit with GI: n/a TEACHER documented in this encounter Plan of Treatment Upcoming Encounters Date Type Department Care Team (Late st Contact Info) Description 12/07/2024 11:00 AM CDT Procedure Visit [facility] #2 [place] [address] Kvng Jaeger MD #[address] [place] [address] documented as of this encounter Visit Diagnoses Diagnosis Gastroesophageal reflux disease without esophagitis Esophageal reflux documented in this encounter Additional Health Concerns Assessment Noted Time PHQ-9 Depression Total Score: 0 02/04/20 21 1:00 PM CDT documented as of this encounter Care Teams Bag Machine Adjuster Relationship Specialty Start Date End Date Enzo Holloway MD #[address] [address] PCP - General Family Medicine 04/27/17 12/27/23 Tariq Goyal MD [address] [place] [address] PCP - General Family Medicine 12/28/23 04/02/24 Enzo Holloway MD #[address] [address] PCP - General Family Medicine 04/03/24 08/30/24 Tariq Goyal MD [address] [place] [address] PCP - General Family Medicine 08/31/24 Kvng Jaeger MD #[address] [place] [address] Consulting Physician Neurology 04/12/23 Ela Kim, CAN CUTTER, CASING BUILDER #[address] [place] [address] Nurse Practitioner Advanced Practice Nurse 03/15/22 Pablo Mora MD #2 [place] [address] Consulting Physician Urology 02/03/24 documented as of this encounter
--- OUTSIDE RECORDS SUMMARY | 2024-10-25 18:56 | XMS_ITS | Encounter Summary ---
Author Organization [facility] Address [address] [facility] [place] [address] Phone Care Team Providers Care Deicer Finisher Name Role Phone Enzo Holloway MD Primary Care Provider [phone] Kvng Jaeger MD Unavailable [phone] Ela Kim APRN, [facility] Unavailable + [phone] Tariq Goyal MD Primary Care Provider [phone] Pablo Mora MD Unavailable [phone] Enzo Holloway MD Primary Care Provider [phone] Tariq Goyal MD Primary Care Provider [phone] Reason for Visit * Reason Comments Medication Refill Encounter Details Date Type Department Care Team (Late st Contact Info) Description 12/19/2021 [facility]ill [facility] - [place] #2 [place] [address] Danya Lozano November, PAC [address] [place] [address] Medication Refill Social History Tobacco Use Types [...] AM CDT Medication [facility] and [facility] chronic medication standing order for pediatric and adult patients. documented in this encounter Plan of Treatment Upcoming Encounters Date Type Department Care Team (Late st Contact Info) Description 12/07/2024 11:00 AM CDT [facility] #[address] [place] [address] Kvng Jaeger MD #[address] [place] [address] documented as of this encounter Visit Diagnoses Diagnosis Gastroesophageal reflux disease without esophagitis Esophageal reflux documented in this encounter Additional Health Concerns Assessment Noted Time PHQ-9 Depression Total Score: 0 02/04/20 21 1:00 PM CDT documented as of this encounter Care Teams Deicer Finisher Relationship Specialty Start Date End Date Enzo Holloway MD [address] [address] PCP - General Family Medicine 04/27/17 12/27/23 Tariq Goyal MD [address] [place] [address] PCP - General Family Medicine 12/28/23 04/02/24 Enzo Holloway MD #[address] [address] PCP - General Family Medicine 04/03/24 08/30/24 Tariq Goyal MD [address] [place] [address] PCP - General Family Medicine 08/31/24 Kvng Jaeger MD #[address] [place] [address] Consulting Physician Neurology 04/12/23 Ela Kim, FISHERIES TECHNICAL OFFICER, EXAMINER RATING CLERK #[address] [place] [address] Nurse Practitioner Advanced Practice Nurse 03/15/22 Pablo Mora MD #[address] [address] Consulting Physician Urology 02/03/24 documented as of this encounter
--- OUTSIDE RECORDS SUMMARY | 2024-10-25 18:56 | XMS_ITS | Encounter Summary ---
Author Organization [facility] Address [address] [place] [address] Phone Care Team Providers Care Commercial Painter Name Role Phone Kvng Jaeger MD Unavailable [phone] Ela Kim APRN, [facility] Unavailable [phone] Pablo Mora MD Unavailable [phone] Tariq Goyal MD Primary Care Provider [phone] Reason for Visit * Auth/Cert (Routine) Specialty Diagnoses / Procedures Referred By Contac t Referred To Contact Diagnoses GROSS HEMATURIA Procedures CYSTOSCOPY,DIL URETHRAL STRICTURE CYSTOSCOPY URETHRAL DILATATION Pablo Mora MD #[address] [address] Phone: tel: fax: Referral ID Status Reason Start Date Expiration Date Visits Re quested Visits Authorized [id number] 1 1 Encounter Details Date Type Department Care Team (Late st Contact Info) Description 10/23/2024 Hospital Encounter [facility] Periop 1 [place] [id number] Pablo Mora MD #[address] [address] Social History Tobacco Use Types Packs/Day Years Used Date Smoking Tobacco: Every Day Cigarettes 0.3 32.6 Started: 04/01/1992 Smokeless Tobacco: Never Comments:2 cigarettes per da y Alcohol Use Standard Drinks/Week Comments Yes 0 (1 standard drink = 0.6 oz pur e alcohol) occasional [facility] Utilities Answer Date Recorded In the past [...] declined 04/23/2024 How often do you attend anglican or oriental orthodox serv ices? Patient declined 04/23/2024 Do you belong to any clubs o r organizations such as anglican groups, unions, fraternal or athletic groups, or [...] Total Score - Questions 1-9 0 01/25 [facility] [place] of Occupat ional Health - Occupational Stress [...] any time in the past 12 m [facility], were you homeless or living in [...] your photo ID and insurance card. ARRANGE CERTIFIED VEHICLE FIRE INVESTIGATOR- David For your safety, after having anesthesia, You must have an adult driver supervisor (18 yrs or older) arranged in advance [...] Tylenol the day of Surgery 1. Hydrocodone-acetaminophen ([place]) IF needed AND can tolerate on an [...] list of current medications, including and any rnny-pex-avfijxn medications and supplements(such as herbs and essential [...] PRE- SURGICAL TESTING. Thank you for selecting [facility] ([facility]) for your procedure.We know you have a choice for your healthcare and we are pleased to provide you with this service. Our [facility] is to: Serve with the Greatest Care and Love . We are not employees of [facility], we are [employer] driven to provide care based on our Jordan, Vision and Values. Please do not hesitate to let us know if you have any questions or concerns. May God Bless you and we look forward to serving you. Your Perioperative Team. * Interdisciplinary - Jennifer Acosta RN - 10/22/2024 9:28 AM CDT [facility] ADULT TEACHING Patient Name: Bang Saxena : 1985 [facility]#: [id number] Person Educated Patient Ready to Learn Yes [...] be allowed to accompany you to the [facility]. No children under theage of 16 will be allowed in the [facility] unless they are the patient. If [...] Patient Response: Verbalizes Understanding Patient assessed for information security consultant during the preop interview and appropriate interventions [...] Description 12/07/2024 11:00 AM CDT Procedure Visit [facility] - Neurology - [place] #2 [place] [address] Kvng Jaeger MD #2 [place] [address] documented as of this encounter Visit Diagnoses Not on filedocumented in this encounter Additional Health Concerns Assessment Noted Time PHQ-9 Depression Total Score: 0 02/04/20 21 1:00 PM CDT documented as of this encounter Care Teams Commercial Painter Relationship Specialty Start Date End Date Tariq Goyal MD [address] [place] [address] PCP - General Family Medicine 08/31/24 Kvng Jaeger MD #1 [place] [address] Consulting Physician Neurology 04/12/23 Ela Kim APRN, PRIVACY MANAGER #2 [place] [address] Nurse Practitioner Advanced Practice Nurse 03/15/22 Pablo Mora MD #[address] [address] Consulting Physician Urology 02/03/24 documented as of this encounter
--- OUTSIDE RECORDS SUMMARY | 2024-10-25 18:56 | XMS_ITS | Clinical Summary ---
Author Organization [facility] Address #1 [place] [address] Phone Care Team Providers Care Reliability Manager Name Role Phone Kvng Jaeger MD Unavailable [phone] Ela Kim APRN, SHIPPER Unavailable [phone] Pablo Mora MD Unavailable [phone] Tariq Goyal MD Primary Care Provider [phone] Allergies Active Allergy Reactions Criticality Noted Date [...] Team Description 10/23/2024 Hospital Encounter [facility] Periop 1 [facility] [place] [address] Pablo Mora MD 10/22/2024 Telephone [facility] PHYS[facility]IAN [facility] UROLOGY #2 [facility] [place] [address] Pablo Mora MD 10/22/2024 Travel 09/21/2024 Refill [facility] - Neurology - [place] #2 [facility] [place] [address] Ela Kim APRN, SHIPPER Medication Refill 09/19/2024 Telephone [facility] UROLOGY #2 [facility] [place] [address] Pablo Mora MD 09/07/2024 1:00 PM CDT Procedure Visit [facility] PHYS[facility] UR[facility] #2 [facility] [place] [address] Pablo Mora MD Gross hematuria (Primary Dx) Discharge Disposition: Discharged to home or Selfcare 09/07/2024 Travel 08/31/2024 9:00 AM POOL HALL INSPECTOR [facility] #2 [place] [address] Kvng Jaeger MD Chronic migraine without aura, not intractable, without status migrainosus (Primary Dx) Discharge Disposition: Discharged to home or Selfcare 08/31/2024 [facility]2 [place] [address] Ela Kim APRN, SHIPPER 08/31/2024 Travel 08/15/2024 [facility]2 [place] [address] Ela Kim SUPERVISOR PRECISION OPTICAL ELEMENTS, SHIPPER Medication Refill from Last 3 Months Immunizations Immunization Administration Dates Next Due Covid-19, Mrna, Lnp-s, Pf, 3 0 Mcg/0.3 Ml Dose ([employer]) 09/20/2020,08/30/2020 DTP Vaccine 10/13/1988, 5,04/02/1984,1983,02/02/1984 Influenza Vaccine [...] declined 04/23/2024 How often do you attend scientologist or nondenominational serv ices? Patient declined 04/23/2024 Do you belong to any clubs o r organizations such as scientologist groups, unions, fraternal or athletic groups, or [...] Total Score - Questions 1-9 0 01/25 [facility] of Occupat ional Health - [...] time in the past 12 m [facility], were you homeless or living in a detention (including now)? Patient declined 04/23/2024 Education Answer [...] 36.5 C (97.7 F) 05/01/2024 10:25 AM POOL HALL INSPECTOR Respiratory Rate 12 09/07/2024 12:56 PM CDT [...] Visit [facility] #2 [place] [address] Kvng Jaeger MD #2 [place] [address] Health Maintenance Due Date Last Done Comments [...] FACIAL/TRIGEMINAL/CE RV SPINE Routine 08/31/2024 9:00 AM POOL HALL INSPECTOR Chronic migraine without aura, not intractable, without status migrainosus from Last 3 Months Results * CULTURE, URINE (09/07/2024 1:37 PM CDT) CULTURE RESULTS No growth final 09/08/2024 9:44 PM CDT [facility] Culture URINE SPECIMEN OBTAINED BY CLEAN CATCH PROCEDURE / Unknown Non-Phlebotomy Collection / Unknown 09/07/2024 1:37 PM CDT 09/07/2024 1:37 PM CDT Pablo Agustin MD MICROBIOLOGY - GENERAL ORDERAB LES Final Result [facility] [address] [place] [address], * POCT UA AUTOMATED W/O MICRO (09/07/2024 [...] MUSCLE(S) BILAT FACIAL/TRIGEMINAL/CERV SPINE (08/31/2024 9:00 AM POOL HALL INSPECTOR) Narrative Kvng Jaeger MD - 08/31/2024 9:00 AM POOL HALL INSPECTOR Kvng Jaeger MD 09/26/2024 7:24 PM Bang [...] procedure with no complications. Kvng Jaeger MD [place] - SURGERY Final Result from Last 3 Months Insurance MEDICAID [place] Advance Directives * Full Code (Latest Code Status on File) Date Activated Date Inactivated Comments 04/23/2024 9:06 PM CPR-Full Rtinh tment: FULL ARREST: Attempt Resuscitation/CPR wit intubation and mechanical ventilation. PRE-ARREST: Use entire range of life support measures to stabilize the patient. Care Teams Reliability Manager Relationship Specialty Start Date End Date Tariq Goyal MD [address] [place] [address] PCP - General Family Medicine 08/31/24 Kvng Jaeger MD #1 [place] [address] Consulting Physician Neurology 04/12/23 Ela Kim, SUPERVISOR PRECISION OPTICAL ELEMENTS, SHIPPER #2 [place] [address] Nurse Practitioner Advanced Practice Nurse 03/15/22 Pablo Mora MD #[address] [address] Consulting Physician Urology 02/03/24
--- OUTSIDE RECORDS SUMMARY | 2024-10-25 18:56 | XMS_ITS | Encounter Summary ---
Author Organization [facility] Address [address] [place] [address] Phone Care Team Providers Care Room Attendants Name Role Phone Enzo Holloway MD Primary Care Provider [phone] Kvng Jaeger MD Unavailable [phone] Ela Kim APRN, EMERY WHEEL MOLDER Unavailable [phone] Tariq Goyal MD Primary Care Provider [phone] Pablo Mora MD Unavailable [phone] Enzo Holloway MD Primary Care Provider [phone] Tariq Goyal MD Primary Care Provider [phone] Reason for Visit * Reason Comments Medication Refill Encounter Details Date Type Department Care Team (Late st Contact Info) Description 03/05/2022 Refill [facility] - Neurology [facility] #2 [place] [address] Ela Kim APRN, EMERY WHEEL MOLDER #2 [place] [address] Medication Refill Social History Tobacco Use Types [...] Description 12/07/2024 11:00 AM CDT Procedure [facility] - Neurology [facility] #2 [place] [address] Kvng Jaeger MD #2 [place] [address] documented as of this encounter Visit Diagnoses Not on filedocumented in this encounter Additional Health Concerns Assessment Noted Time PHQ-9 Depression Total Score: 0 02/04/20 21 1:00 PM CDT documented as of this encounter Care Teams Room Attendants Relationship Specialty Start Date End Date Enzo Holloway MD #[address] [address] PCP - General Family Medicine 04/27/17 12/27/23 Tariq Goyal MD [address] [place] [address] PCP - General Family Medicine 12/28/23 04/02/24 Enzo Holloway MD #[address] [address] PCP - General Family Medicine 04/03/24 08/30/24 Tariq Goyal MD [address] [place] [address] PCP - General Family Medicine 08/31/24 Kvng Jaeger MD #1 [place] [address] Consulting Physician Neurology 04/12/23 Ela Kim APRN, EMERY WHEEL MOLDER #2 [place] [address] Nurse Practitioner Advanced Practice Nurse 03/15/22 Pablo Mora MD #[address] [address] Consulting Physician Urology 02/03/24 documented as of this encounter
--- OUTSIDE RECORDS SUMMARY | 2024-10-25 18:56 | XMS_ITS | Encounter Summary ---
Author Organization [facility] Address [address] [place] [address] Phone Care Team Providers Care Crop Consultant Name Role Phone Enzo Holloway MD Primary Care Provider [phone] Kvng Jaeger MD Unavailable [phone] Ela Kim APRN, MANAGER DRIVE Unavailable [phone] Tariq Goyal MD Primary Care Provider [phone] Pablo Mora MD Unavailable [phone] Enzo Holloway MD Primary Care Provider [phone] Tariq Goyal MD Primary Care Provider [phone] Reason for Visit * Reason Comments Medication Refill Encounter Details Date Type Department Care Team (Late st Contact Info) Description 02/12/2022 Refill [facility] - Neurology [facility] #2 [place] [address] Ela Kim APRN, MANAGER DRIVE [address] [place] [address] Medication Refill Social History Tobacco Use Types [...] Description 12/07/2024 11:00 AM CDT Procedure Visit [facility] - Neurology [facility] #2 [place] [address] Kvng Jaeger MD #2 [place] [address] documented as of this encounter Visit Diagnoses Diagnosis Chronic migraine w/o aura w/o status migrainosus, not intractable Chronic migraine without aura, without mention of intractable migraine without mention of status migrainosus documented in this encounter Additional Health Concerns Assessment Noted Time PHQ-9 Depression Total Score: 0 02/04/20 21 1:00 PM CDT documented as of this encounter Care Teams Crop Consultant Relationship Specialty Start Date End Date Enzo Holloway MD #[address] [address] PCP - General Family Medicine 04/27/17 12/27/23 Tariq Goyal MD [address] [place] [address] PCP - General Family Medicine 12/28/23 04/02/24 Enzo Holloway MD #[address] [address] PCP - General Family Medicine 04/03/24 08/30/24 Tariq Goyal MD [address] [place] [address] PCP - General Family Medicine 08/31/24 Kvng Jaeger MD #1 [place] [address] Consulting Physician Neurology 04/12/23 Ela Kim, PUBLICATION DESIGNER, MANAGER DRIVE [address] [place] [address] Nurse Practitioner Advanced Practice Nurse 03/15/22 Pablo Mora MD #[address] [address] Consulting Physician Urology 02/03/24 documented as of this encounter
--- OUTSIDE RECORDS SUMMARY | 2024-10-25 18:56 | XMS_ITS | Encounter Summary ---
Author Organization [facility] Address [address] [place] [address] Phone Care Team Providers Care Marker Maker Name Role Phone Enzo Holloway MD Primary Care Provider [phone] Kvng Jaeger MD Unavailable [phone] Ela Kim APRN, DENTAL APPLIANCE MECHANIC Unavailable Tariq Goyal MD Primary Care Provider [phone] Pablo Mora MD Unavailable [phone] Enzo Holloway MD Primary Care Provider [phone] Tariq Goyal MD Primary Care Provider [phone] Reason for Visit * Reason Comments Medication Refill Encounter Details Date Type Department Care Team (Late st Contact Info) Description 05/12/2022 Refill [facility] - Neurology [facility] #2 [place] [id number] Ela Kim APRN, DENTAL APPLIANCE MECHANIC #2 [place] [address] Medication Refill Social History Tobacco Use Types [...] Coronavirus/COVID-19? No / Unsure 05/04/2022 10:32 AM TRANSMISSION ASSEMBLER documented as of this encounter Plan of Treatment Upcoming Encounters Date Type Department Care Team (Late st Contact Info) Description 12/07/2024 11:00 AM CDT Procedure Visit [facility] - Neurology [facility] #2 [place] [address] Kvng Jaeger MD #2 [place] [address] documented as of this encounter Visit Diagnoses Diagnosis Chronic migraine without aura, not intractable, without status migrainosus documented in this encounter Additional Health Concerns Assessment Noted Time PHQ-9 Depression Total Score: 0 02/04/20 21 1:00 PM CDT documented as of this encounter Care Teams Marker Maker Relationship Specialty Start Date End Date Enzo Holloway MD #[address] [address] PCP - General Family Medicine 04/27/17 12/27/23 Tariq Goyal MD [address] [place] [address] PCP - General Family Medicine 12/28/23 04/02/24 Enzo Holloway MD #[address] [address] PCP - General Family Medicine 04/03/24 08/30/24 Tariq Goyal MD [address] [place] [address] PCP - General Family Medicine 08/31/24 Kvng Jaeger MD #1 [place] [address] Consulting Physician Neurology 04/12/23 Ela Kim APRN, DENTAL APPLIANCE MECHANIC #2 [place] [address] Nurse Practitioner Advanced Practice Nurse 03/15/22 Pablo Mora MD #[address] [address] Consulting Physician Urology 02/03/24 documented as of this encounter
[2024-10-25] MEDS: MORPHINE SULFATE (*CRX) 4 MG/ML INJ IV PUSH (18:58)
[2024-10-25] MEDS: SODIUM CHLORIDE 0.9% IV 1,000 ML 999 ML IV CONT (18:58)
[2024-10-25 19:10] VITALS: BP 149/99; PULSE 80; RESP 16; O2SAT 98
[2024-10-25 19:18] LABS: Basophils Absolute Auto 0.08 K/mm3 (0.00-0.10); Basophils Percent Auto 0.8 % (0.0-1.0); Eosinophils Absolute Auto 0.13 K/mm3 (0.02-0.50); Eosinophils Percent Auto 1.2 % (1.0-6.0); Hematocrit 43.5 % (40.0-54.0); Immature Granulocyte Absolute 0.03 K/mm3 (0.00-0.00); Immature Granulocyte Percent A 0.3 % (0.0-0.0); Lymphocytes Absolute Auto 3.49 K/mm3 (1.10-4.50); Lymphocytes Percent Auto 32.9 % (18.0-42.0); Mean Corpuscular HGB Conc 34.5 g/dL (32-36); Mean Corpuscular Hemoglobin 32.5 pg (27.0-31.0); Mean Corpuscular Volume 94.4 fL (78.0-102.0); Monocytes Absolute Auto 0.82 K/mm3 (0.10-0.90); Monocytes Percent Auto 7.7 % (2.0-11.0); Neutrophils Absolute Auto 6.07 K/mm3 (1.70-7.20); Neutrophils Percent Auto 57.1 % (50.0-70.0); Platelet Count Result 312 K/mm3 (150-420); Red Blood Count 4.61 M/mm3 (4.70-6.10); Red Cell Distribution Width 12.8 % (11.6-14.4); White Blood Count 10.6 K/mm3 (4.8-10.8)
[2024-10-25 19:35] LABS: Add Urine Microscopic? NO; Appearance Urine Clear (Clear); Bilirubin Urine Negative (Negative); Blood Urine Trace-intact (Negative); Color Urine Light Yellow (Yellow); Glucose Urine UA Negative (Negative); Ketones Urine Negative (Negative); Leukocyte Esterase Ur Negative LEU/UL (Negative); Nitrate Urine Negative (Negative); Protein Urine Negative (Negative); Urobilinogen Urine 0.2 mg/dL (0.2-1.0)
[2024-10-25 20:35] LABS: Lactic Acid Reflex 1.8 mmol/L (0.7-2.0)
[2024-10-25 20:37] LABS: Alanine Aminotransferase 38 U/L (6-50); Albumin Level 4.6 g/dL (3.5-5.1); Alkaline Phosphatase 81 U/L (38-126); Anion Gap 11 mmol/L (4-12); Aspartate Amino Transferase 40 U/L (17-59); Bilirubin,Total 0.8 mg/dL (0.2-1.3); Blood Urea Nitrogen 9 mg/dL (9-20); Calcium 9.2 mg/dL (8.4-10.2); Carbon Dioxide 24 mmol/L (22-30); Chloride 101 mmol/L (98-107); Estimated CRCL calculation 123 ml/min; Estimated Glomerular Filt Rate > 60; Glucose 105 mg/dL (65-110); Osmolality Calculated 280 mOsm/kg (285-295); Potassium 3.2 mmol/L (3.4-5.0); Sodium 136 mmol/L (137-145)
--- NOTE | 2024-10-25 20:56 | ED_ITS ---
HPI - Male Genitourinary General Chief complaint: Urogenital-Male Stated complaint: possible kidney stone Time Seen by Provider: 10/25/24 18:24 Source: patient Mode of arrival: ambulatory Limitations: no limitations History of Present Illness HPI Narrative: this is a 38-year-old male with a history of left kidney stones presents with left flank pain with no dysuria no hematuria no fever chills no chest pain or shortness of breath no nausea vomiting. Rates his pain about an 8 out 10. Onset (ago): hour(s) Duration: intermittent Severity scale (1-10): 8 Quality: aching Related Data Home Medications ?Medication ?Instructions ?Recorded ?Confirmed ?Last Taken ?Type gabapentin 300 mg capsule 600 mg PO TID 07/13/23 08/15/24 Unknown History hydrocodone 10 mg-acetaminophen 1 tablet PO Q8H PRN Pain 07/13/23 08/15/24 Unknown History 325 mg tablet celecoxib 100 mg capsule 100 mg PO DAILY 11/13/23 08/15/24 Unknown History methocarbamol 500 mg tablet 500 mg PO TID 11/13/23 08/15/24 Unknown History rimegepant 75 mg disintegrating 75 mg PO ONCE PRN 12/27/23 08/15/24 Unknown History tablet (Nurtec ODT) Allergies Allergy/AdvReac Type Severity Reaction Status Date / Time ketorolac Allergy Severe throat Verified 10/25/24 18:24 swelling pregabalin (From Lyrica) Allergy Unknown Verified 10/25/24 18:24 Review of Systems 2 Review of Systems: All systems reviewed & are unremarkable except as noted in HPI and below PMFSH Past Medical History Medical History DJD (degenerative joint disease) Scoliosis Dissociation PTSD (post-traumatic stress disorder) Diverticulitis Migraines Surgical History Surgical History [place] teeth removed H/O removal of cyst H/O knee surgery Family History Family History Mother Heart disease Diabetes mellitus Kidney disease Parkinsons disease Throat cancer Father Diabetes mellitus Social History Social History Smoking packs per day: 0.5 Smoking cigarettes per day: 10.0 Years smoked: 29 Smoking pack-years: 14.50 Smoking status: Current every day smoker Tobacco type: cigarettes Alcohol intake: never Substance use: current Substance use type: marijuana Last use: 11/13/2023 Do You Feel Safe in your Home?: Yes Lack of Transportation: No Lack of Food: Never True Current Housing: I Have Housing Concerned About Future Housing: No Difficulty Paying Gas/Electric Bills: No Difficulty Paying for Meds: No Currently Unemployed: No Education: High School Diploma/GED Difficulty w/ Childcare or Family Care: No Spiritual care concerns: No Exam 2 Const: General: healthy appearing and no acute distress Nutritional Appearance: well nourished Limitations: no limitations HENMT: Head: normal to inspection Eyes: Conjunctivae: conjunctivae normal Pupils: Equal, round and reactive pupils present Neck: Neck: normal visual inspection Chest: Chest palpation & inspection: normal inspection of the chest Resp: Effort & Inspection: normal respiratory effort Auscultation: clear to auscultation bilaterally Cardio: Rate: regular rate Rhythm: regular rhythm GI: GI Palp: Yes Soft to palpation and Yes Tenderness to palpation present (GI) : General: Yes bladder normal to palpation Urinary Catheter: Urinary Catheter: patent and draining Back/Spine/Pelvis: Back: CVA tenderness Skin: General skin exam: normal color Course Course Emergency Course: Patient had CT scan performed which showed a 4mm mid pole kidney stone with no obstruction, urinalysis performed and reviewed with no acute abnormalities and blood counts reviewed with no acute abnormalities. Patient received morphine 4mg and after reassessment pain level has improved, patient was given IV fluids. Vital Signs Vital signs: Vital Signs Temperature 36.7 C 10/25/24 18:24 Pulse Rate 85 10/25/24 18:24 Respiratory Rate 17 10/25/24 18:24 Blood Pressure 140/102 H 10/25/24 18:24 Pulse Oximetry 97 10/25/24 18:24 Temperature 36.7 C 10/25/24 18:24 Pulse Rate 80 10/25/24 19:10 Respiratory Rate 16 10/25/24 19:10 Blood Pressure 149/99 H 10/25/24 19:10 Pulse Oximetry 98 10/25/24 19:10 MDM - Male Genitourinary Lab Data 10/25/24 19:11 10/25/24 19:11 Labs: Lab Results 10/25/24 10/25/24 Range/Units 18:36 19:11 WBC 10.6 (4.8-10.8) K/mm3 RBC 4.61 L (4.70-6.10) M/mm3 Hgb 15.0 (14.0-18.0) g/dL Hct 43.5 (40.0-54.0) % MCV 94.4 (78.0-102.0) fL MCH 32.5 H (27.0-31.0) pg MCHC 34.5 (32-36) g/dL RDW 12.8 (11.6-14.4) % Plt Count 312 (150-420) K/mm3 MPV 9.0 (8.7-11.0) fl Immature Gran % (Auto) 0.3 H (0.0-0.0) % Neut % (Auto) 57.1 (50.0-70.0) % Lymph % (Auto) 32.9 (18.0-42.0) % [place] % (Auto) 7.7 (2.0-11.0) % Eos % (Auto) 1.2 (1.0-6.0) % Baso % (Auto) 0.8 (0.0-1.0) % Lymph # (Auto) 3.49 (1.10-4.50) K/mm3 [place] # (Auto) 0.82 (0.10-0.90) K/mm3 Eos # (Auto) 0.13 (0.02-0.50) K/mm3 Baso # (Auto) 0.08 (0.00-0.10) K/mm3 Abs Immat Gran (auto) 0.03 H (0.00-0.00) K/mm3 Absolute Neuts (auto) 6.07 (1.70-7.20) K/mm3 Absolute Nucleated RBC 0.00 (0.00-0.00) K/mm3 Nucleated RBC % 0.0 (0-0.0) % Sodium 136 L (137-145) mmol/L Potassium 3.2 L (3.4-5.0) mmol/L Chloride 101 (98-107) mmol/L Carbon Dioxide 24 (22-30) mmol/L Anion Gap 11 (4-12) mmol/L BUN 9 (9-20) mg/dL Creatinine 0.85 (0.7-1.3) mg/dL Estim Creat Clear Calc 123 ml/min Estimated GFR > 60 (59 - ) Glucose 105 (65-110) mg/dL Calculated Osmolality Pending Lactic Acid 1.8 (0.7-2.0) mmol/L Calcium 9.2 (8.4-10.2) mg/dL Total Bilirubin 0.8 (0.2-1.3) mg/dL AST 40 (17-59) U/L ALT 38 (6-50) U/L Alkaline Phosphatase 81 (38-126) U/L Total Protein 8.0 (6.3-8.2) g/dL Albumin 4.6 (3.5-5.1) g/dL Urine Color Light yellow (Yellow) Urine Appearance Clear (Clear) Urine pH 6.0 (5.0-8.0) Ur Specific [place] 1.020 (1.010-1.020) Urine Protein Negative (Negative) Urine Glucose (UA) Negative (Negative) Urine Ketones Negative (Negative) Ur Blood (Man) Trace-intact H (Negative) Urine Nitrate Negative (Negative) Urine Bilirubin Negative (Negative) Urine Urobilinogen 0.2 (0.2-1.0) mg/dL Leukocyte Esterase Rfl Negative (Negative) YESSI/UL Critical Care Time Critical Care Time Critical Care Time: No Discharge Plan Discharge Clinical Impression: Nephrolithiasis Patient Disposition: Home Condition: Stable Instructions: Antibiotic Form, Kidney Stones (ED) Additional Instructions: advised to take medication as prescribed and follow with Primary/urologist within the next week for further evaluation treatment. Patient Language: Irish Prescriptions: New oxycodone-acetaminophen [Percocet] 5-325 mg tablet 1 tablet PO Q6H PRN (Reason: pain) Qty: 20 0RF ondansetron 4 mg tablet,disintegrating 4 mg PO Q6H PRN (Reason: nausea and vomiting) Qty: 14 0RF potassium chloride [Klor-Con M20] 20 mEq tablet,ER particles/crystals 20 meq PO BID 3 Days Qty: 6 0RF No Action methocarbamol 500 mg tablet 500 mg PO TID celecoxib 100 mg capsule 100 mg PO DAILY gabapentin 300 mg capsule 600 mg PO TID hydrocodone-acetaminophen 10-325 mg tablet 1 tablet PO Q8H PRN (Reason: Pain) Nurtec ODT 75 mg tablet,disintegrating 75 mg PO ONCE PRN Rx Instructions: as a single dose metoprolol tartrate 25 mg tablet 12.5 mg PO BID Qty: 90 1RF bupropion HCl 300 mg tablet extended release 24 hr 300 mg PO QAM Qty: 90 0RF alprazolam 0.5 mg tablet 0.5 mg PO DAILY PRN (Reason: anxiety) Qty: 30 2RF hydrochlorothiazide 25 mg tablet See Rx Instructions .ROUTE .COMPLEX Qty: 90 3RF Dose Instruction: TAKE 1 TABLET BY MOUTH EVERY DAY Rx Instructions: TAKE 1 TABLET BY MOUTH EVERY DAY amlodipine 10 mg tablet 10 mg PO DAILY Qty: 90 1RF fluoxetine 40 mg capsule See Rx Instructions .ROUTE .COMPLEX Qty: 90 0RF Dose Instruction: TAKE ONE CAPSULE BY MOUTH DAILY Rx Instructions: TAKE ONE CAPSULE BY MOUTH DAILY Follow-up/Referrals: Tariq Goyal DO [Primary Care Provider] - Time of Disposition: 21:01
[2024-10-25] MEDS: POTASSIUM BICARBONATE 25 MEQ TABEF 50 MEQ PO (21:17)
[2024-10-25 21:32] VITALS: BP 138/86; PULSE 78; RESP 18; O2SAT 99
--- NOTE | 2024-10-28 13:26 | PC.NURSE ---
blood culture reviewed preliminary, no growth
--- NOTE | 2024-10-29 14:24 | PC.NURSE ---
PRELIMINARY BLOOD CULTURE REPORT; GRAM POSITIVE COCCI IN CLUSTERS. WILL WAIT FOR FINAL CULTURE AND SENSITIVITY PER ERP DR CHEN.
--- NOTE | 2024-10-30 18:01 | PC.NURSE ---
final urine culture report reviewed. kocuria rhizophila isolated. erp dr skinner reviewed report and prescribed cipro 500mg po bid x7 days. this rx called in to [facility] in [place]. pt contacted per phone of new rx. pt agrees to go get rx filled and started this evening. pt states he will call pmd in am for further treatment
== END 2024-10-25 21:32 | disposition home or self-care (01) ==
PROVIDERS: Emergency Provider Emergency Medicine; PCP Family Medicine
DX: N20.0 Calculus of kidney (principal); F17.210 Nicotine dependence, cigarettes, uncomplicated
CPT/HCPCS: 36415; 74176; 80053; 81003; 83605; 85025; 87040; 96361; 96374; 99284; A9270; J2270; J7030

== ENCOUNTER 2024-11-01 14:34 | Outpatient (NON) | payer OTHER, SELFPAY ==
--- OUTSIDE RECORDS SUMMARY | 2024-11-01 14:37 | XMS_ITS | Encounter Summary ---
Author Organization [facility] Address [address] [facility] [place] [address] Phone Care Team Providers Care Bottom Saw Operator Name Role Phone Enzo Holloway MD Primary Care Provider [phone] Kvng Jaeger MD Unavailable [phone] Ela Kim APRN, [facility] Unavailable + [phone] Tariq Goyal MD Primary Care Provider [phone] Pablo Mora MD Unavailable [phone] Enzo Holloway MD Primary Care Provider [phone] Tariq Goyal MD Primary Care Provider [phone] Reason for Visit * Reason Comments Medication Refill Encounter Details Date Type Department Care Team (Late st Contact Info) Description 06/01/2022 [facility]ill [facility] - [place] #2 [place] [address] Danya Lozano November, PAC [address] [place] [address] Medication Refill Social History Tobacco Use Types [...] Coronavirus/COVID-19? No / Unsure 05/04/2022 10:32 AM FOOD SERVICE COORDINATOR documented as of this encounter Miscellaneous Notes * Telephone Encounter - Vicky Coleman - 06/03/2022 1:30 PM CST Apt scheduled SERVICE COORDINATOR * Telephone Encounter - Alissa Sanchez APRN, CNP - 06/02/2022 12:38 PM CST Needs appointment. Last office visit was in 04/2021 SERVICE COORDINATOR * Telephone Encounter - Veronika Butterfield RN [...] 04/28/21 Next Office Visit with GI: n/a SERVICE COORDINATOR documented in this encounter Plan of Treatment Upcoming Encounters Date Type Department Care Team (Late st Contact Info) Description 12/07/2024 11:00 AM CDT Procedure Visit [facility]2 [place] [address] Kvng Jaeger MD [address]2 [place] [address] documented as of this encounter Visit Diagnoses Diagnosis Gastroesophageal reflux disease without esophagitis Esophageal reflux documented in this encounter Additional Health Concerns Assessment Noted Time PHQ-9 Depression Total Score: 0 02/04/20 21 1:00 PM CDT documented as of this encounter Care Teams Bottom Saw Operator Relationship Specialty Start Date End Date Enzo Holloway MD #[address] [address] PCP - General Family Medicine 04/27/17 12/27/23 Tariq Goyal MD [address] [place] [address] PCP - General Family Medicine 12/28/23 04/02/24 Enzo Holloway MD #[address] [address] PCP - General Family Medicine 04/03/24 08/30/24 Tariq Goyal MD [address] [place] [address] PCP - General Family Medicine 08/31/24 Kvng Jaeger MD #1 [place] [address] Consulting Physician Neurology 04/12/23 Ela Kim, ANIMAL BIOLOGIST, LEAD MANUFACTURING ENGINEER [address] [place] [address] Nurse Practitioner Advanced Practice Nurse 03/15/22 Pablo Mora MD [address] [place] [address] Consulting Physician Urology 02/03/24 documented as of this encounter
--- OUTSIDE RECORDS SUMMARY | 2024-11-01 14:37 | XMS_ITS | Encounter Summary ---
Author Organization [facility] Address [address] [place] [address] Phone Care Team Providers Care Pit And Auxiliaries Supervisor Name Role Phone Enzo Holloway MD Primary Care Provider [phone] Kvng Jaeger MD Unavailable [phone] Ela Kim APRN, COUNSELLORS Unavailable Tariq Goyal MD Primary Care Provider [phone] Pablo Mora MD Unavailable [phone] Enzo Holloway MD Primary Care Provider [phone] Tariq Goyal MD Primary Care Provider [phone] Reason for Visit * Reason Comments Medication Refill Encounter Details Date Type Department Care Team (Late st Contact Info) Description 06/19/2022 Refill [facility] - Neurology [facility] #2 [place] [address] Ela Kim APRN, COUNSELLORS [address] [place] [address] Medication Refill Social History Tobacco Use Types [...] 12/07/2024 11:00 AM CDT Procedure Visit [facility] - Neurology [facility] [address] [place] [address] Knvg Jaeger MD [address] [place] [address] documented as of this encounter Visit Diagnoses Diagnosis Acute post-traumatic headache, not intractable Acute post-traumatic headache Primary hypertension Unspecified essential hypertension documented in this encounter Additional Health Concerns Assessment Noted Time PHQ-9 Depression Total Score: 0 02/04/20 21 1:00 PM CDT documented as of this encounter Care Teams Pit And Auxiliaries Supervisor Relationship Specialty Start Date End Date Enzo Holloway MD #[address] [address] PCP - General Family Medicine 04/27/17 12/27/23 Tariq Goyal MD [address] [place] [address] PCP - General Family Medicine 12/28/23 04/02/24 Enzo Holloway MD #[address] [address] PCP - General Family Medicine 04/03/24 08/30/24 Tariq Goyal MD [address] [place] [address] PCP - General Family Medicine 08/31/24 Kvng Jaeger MD [address] [place] [address] Consulting Physician Neurology 04/12/23 Ela Kim APRN, COUNSELLORS [address] [place] [address] Nurse Practitioner Advanced Practice Nurse 03/15/22 Pablo Mora MD #[address] [address] Consulting Physician Urology 02/03/24 documented as of this encounter
--- OUTSIDE RECORDS SUMMARY | 2024-11-01 14:37 | XMS_ITS | Encounter Summary ---
Author Organization [facility] Address [address] [place] [address] Phone Care Team Providers Care High School Business Teacher Name Role Phone Enzo Holloway MD Primary Care Provider [phone] Kvng Jaeger MD Unavailable [phone] Ela Kim APRN, SAFETY RELIEF VALVE TECHNICIAN Unavailable Tariq Goyal MD Primary Care Provider [phone] Pablo Mora MD Unavailable [phone] Enzo Holloway MD Primary Care Provider [phone] Tariq Goyal MD Primary Care Provider [phone] Reason for Visit * Reason Comments Medication Refill Encounter Details Date Type Department Care Team (Late st Contact Info) Description 05/12/2022 Refill [facility] - Neurology [facility] #[address] [place] [address] Ela Kim APRN, SAFETY RELIEF VALVE TECHNICIAN [address] [place] [address] Medication Refill Social History Tobacco Use Types [...] Coronavirus/COVID-19? No / Unsure 05/04/2022 10:32 AM APPLICATION ADMINISTRATOR documented as of this encounter Plan of Treatment Upcoming Encounters Date Type Department Care Team (Late st Contact Info) Description 12/07/2024 11:00 AM CDT Procedure Visit [facility] - Neurology [facility] [address] [place] [address] Kvng Jaeger MD [address] [place] [address] documented as of this encounter Visit Diagnoses Diagnosis Chronic migraine without aura, not intractable, without status migrainosus documented in this encounter Additional Health Concerns Assessment Noted Time PHQ-9 Depression Total Score: 0 02/04/20 21 1:00 PM CDT documented as of this encounter Care Teams High School Business Teacher Relationship Specialty Start Date End Date Enzo Holloway MD [address] [address] PCP - General Family Medicine 04/27/17 12/27/23 Tariq Goyal MD [address] [place] [address] PCP - General Family Medicine 12/28/23 04/02/24 Enzo Holloway MD #[address] [address] PCP - General Family Medicine 04/03/24 08/30/24 Tariq Goyal MD [address] [place] [address] PCP - General Family Medicine 08/31/24 Kvng Jaeger MD [address] [place] [address] Consulting Physician Neurology 04/12/23 Ela Kim APRN, SAFETY RELIEF VALVE TECHNICIAN [address] [place] [address] Nurse Practitioner Advanced Practice Nurse 03/15/22 Pablo Mora MD #[address] [address] Consulting Physician Urology 02/03/24 documented as of this encounter
--- OUTSIDE RECORDS SUMMARY | 2024-11-01 14:37 | XMS_ITS | Encounter Summary ---
Author Organization [facility] Address [address] [facility] [place] [address] Phone Care Team Providers Care Technical Project Coordinator Name Role Phone Enzo Holloway MD Primary Care Provider [phone] Kvng Jaeger MD Unavailable [phone] Ela Kim APRN, [facility] Unavailable + [phone] Tariq Goyal MD Primary Care Provider [phone] Pablo Mora MD Unavailable [phone] Enzo Holloway MD Primary Care Provider [phone] Tariq Goyal MD Primary Care Provider [phone] Reason for Visit * Reason Comments Medication Refill Encounter Details Date Type Department Care Team (Late st Contact Info) Description 12/19/2021 Refill [facility] - [place] [address] [place] [address] Danya Lozano November, PAC [address] [place] [address] Medication Refill Social History Tobacco Use Types [...] AM CDT Medication [facility] and [facility] standing order for pediatric and adult patients. documented in this encounter Plan of Treatment Upcoming Encounters Date Type Department Care Team (Late st Contact Info) Description 12/07/2024 11:00 AM CDT [facility] [address] [place] [address] Kvng Jaeger MD [address] [place] [address] documented as of this encounter Visit Diagnoses Diagnosis Gastroesophageal reflux disease without esophagitis Esophageal reflux documented in this encounter Additional Health Concerns Assessment Noted Time PHQ-9 Depression Total Score: 0 02/04/20 21 1:00 PM CDT documented as of this encounter Care Teams Technical Project Coordinator Relationship Specialty Start Date End Date Enzo Holloway MD [address] [address] PCP - General Family Medicine 04/27/17 12/27/23 Tariq Goyal MD [address] [place] [address] PCP - General Family Medicine 12/28/23 04/02/24 Enzo Holloway MD #[address] [address] PCP - General Family Medicine 04/03/24 08/30/24 Tariq Goyal MD [address] [place] [address] PCP - General Family Medicine 08/31/24 Kvng Jaeger MD [address] [place] [address] Consulting Physician Neurology 04/12/23 Ela Kim, ASSEMBLER PIANO, DISTILLERY WORKER [address] [place] [address] Nurse Practitioner Advanced Practice Nurse 03/15/22 Pablo Mora MD #[address] [address] Consulting Physician Urology 02/03/24 documented as of this encounter
--- OUTSIDE RECORDS SUMMARY | 2024-11-01 14:37 | XMS_ITS | Encounter Summary ---
Author Organization [facility] Address [address] [place] [address] Phone Care Team Providers Care Charhouse Worker Name Role Phone Enzo Holloway MD Primary Care Provider [phone] Kvng Jaeger MD Unavailable [phone] Ela Kim APRN, SOLDERER FURNACE Unavailable Tariq Goyal MD Primary Care Provider [phone] Pablo Mora MD Unavailable [phone] Enzo Holloway MD Primary Care Provider [phone] Tariq Goyal MD Primary Care Provider [phone] Reason for Visit * Reason Comments Medication Refill Encounter Details Date Type Department Care Team (Late st Contact Info) Description 10/19/2022 Refill [facility] - [facility]rology [facility] #[address] [place] [address] Ela Kim APRN, SOLDERER FURNACE [address] [place] [address] Medication Refill Social History Tobacco Use Types [...] Dept 07/30/22 Procedure Visit Kvng Jaeger MD [facility] Neurology [facility] [place] 05/04/22 Office Visit Ela Kim APRN, CNS [facility] Neurology [facility] [place] 03/15/22 Office Visit Ela Kim APRN, CNS [facility] Neurology [facility] [address] 10/22/21 Office Visit Ela Kim APRN, CNS [facility] Neurology [facility] [place] Showing recent visits within past 365 days and meeting all other requirements Future Appointments Date Type Provider Dept 10/21/22 Appointment Ela Kim APRN, CNS [facility] [place] 10/22/22 Appointment Kvng Jaeger MD [facility] Neurology [facility] Showing future appointments within next 90 days and meeting all other requirements documented in this encounter Plan of Treatment Upcoming Encounters Date Type Department Care Team (Late st Contact Info) Description 12/07/2024 11:00 AM CDT [facility] #[address] [place] [address] Kvng Jaeger MD [address] [place] [address] documented as of this encounter Visit Diagnoses Diagnosis Chronic migraine without aura, not intractable, without status migrainosus documented in this encounter Additional Health Concerns Assessment Noted Time PHQ-9 Depression Total Score: 0 02/04/20 21 1:00 PM CDT documented as of this encounter Care Teams Charhouse Worker Relationship Specialty Start Date End Date Enzo Holloway MD #[address] [address] PCP - General Family Medicine 04/27/17 12/27/23 Tariq Goyal MD [address] [place] [address] PCP - General Family Medicine 12/28/23 04/02/24 Enzo Holloway MD #[address] [address] PCP - General Family Medicine 04/03/24 08/30/24 Tariq Goyal MD [address] [place] [address] PCP - General Family Medicine 08/31/24 Kvng Jaeger MD #[address] [place] [address] Consulting Physician Neurology 04/12/23 Ela Kim APRN, SOLDERER FURNACE [address] [place] [address] Nurse Practitioner Advanced Practice Nurse 03/15/22 Pablo Mora MD [address] [place] [address] [place] [address] Consulting Physician Urology 02/03/24 documented as of this encounter
--- OUTSIDE RECORDS SUMMARY | 2024-11-01 14:37 | XMS_ITS | Encounter Summary ---
Author Organization [facility] Address [address] [place] [address] Phone Care Team Providers Care Roller Coaster Designer Name Role Phone Enzo Holloway MD Primary Care Provider [phone] Kvng Jaeegr MD Unavailable [phone] Ela Kim APRN, BRICK KILN WORKER Unavailable [phone] Tariq Goyal MD Primary Care Provider [phone] Pablo Mora MD Unavailable [phone] Enzo Holloway MD Primary Care Provider [phone] Tariq Goyal MD Primary Care Provider [phone] Reason for Visit * Reason Comments Medication Refill Encounter Details Date Type Department Care Team (Late st Contact Info) Description 03/05/2022 Refill [facility] - [facility] #2 [place] [address] Ela Kim APRN, BRICK KILN WORKER [address] [place] [address] Medication Refill Social History Tobacco Use Types [...] Description 12/07/2024 11:00 AM CDT Procedure Visit [facility] - [facility] #[address] [place] [address] Kvng Jaeger MD [address] [place] [address] documented as of this encounter Visit Diagnoses Not on filedocumented in this encounter Additional Health Concerns Assessment Noted Time PHQ-9 Depression Total Score: 0 02/04/20 21 1:00 PM CDT documented as of this encounter Care Teams Roller Coaster Designer Relationship Specialty Start Date End Date Enzo Holloway MD #[address] [address] PCP - General Family Medicine 04/27/17 12/27/23 Tariq Goyal MD [address] [place] [address] PCP - General Family Medicine 12/28/23 04/02/24 Enzo Holloway MD #[address] [address] PCP - General Family Medicine 04/03/24 08/30/24 Tariq Goyal MD [address] [place] [address] PCP - General Family Medicine 08/31/24 Kvng Jaeger MD #[address] [place] [address] Consulting Physician Neurology 04/12/23 Ela Kim APRN, BRICK KILN WORKER [address] [place] [address] Nurse Practitioner Advanced Practice Nurse 03/15/22 Pablo Mora MD #[address] [address] Consulting Physician Urology 02/03/24 documented as of this encounter
--- OUTSIDE RECORDS SUMMARY | 2024-11-01 14:37 | XMS_ITS | Encounter Summary ---
Author Organization [facility] Address [address] [place] [address] Phone Care Team Providers Care Applied Computer Science Professor Name Role Phone Enzo Holloway MD Primary Care Provider [phone] Kvng Jaeger MD Unavailable [phone] Ela Kim APRN, MENTAL HEALTH PROFESSIONAL Unavailable [phone] Tariq Goyal MD Primary Care Provider [phone] Pablo Mora MD Unavailable [phone] Enzo Holloway MD Primary Care Provider [phone] Tariq Goyal MD Primary Care Provider [phone] Reason for Visit * Reason Comments Medication Refill Encounter Details Date Type Department Care Team (Late st Contact Info) Description 02/12/2022 Refill [facility] - Neurology [facility] #2 [place] [address] Ela Kim APRN, MENTAL HEALTH PROFESSIONAL [address] [place] [address] Medication Refill Social History Tobacco Use Types [...] Description 12/07/2024 11:00 AM CDT Procedure Visit [facility] - Neurology [facility] #2 [place] [address] Kvng Jaeger MD [address] [place] [address] documented as of this encounter Visit Diagnoses Diagnosis Chronic migraine w/o aura w/o status migrainosus, not intractable Chronic migraine without aura, without mention of intractable migraine without mention of status migrainosus documented in this encounter Additional Health Concerns Assessment Noted Time PHQ-9 Depression Total Score: 0 02/04/20 21 1:00 PM CDT documented as of this encounter Care Teams Applied Computer Science Professor Relationship Specialty Start Date End Date Enzo Holloway MD #[address] [address] PCP - General Family Medicine 04/27/17 12/27/23 Tariq Goyal MD [address] [place] [address] PCP - General Family Medicine 12/28/23 04/02/24 Enzo Holloway MD #[address] [address] PCP - General Family Medicine 04/03/24 08/30/24 Tariq Goyal MD [address] [place] [address] PCP - General Family Medicine 08/31/24 Kvng Jaeger MD #[address] [place] [address] Consulting Physician Neurology 04/12/23 Ela Kim, WORKFORCE DEVELOPMENT SPECIALIST, MENTAL HEALTH PROFESSIONAL [address] [place] [address] Nurse Practitioner Advanced Practice Nurse 03/15/22 Pablo Mora MD #[address] [address] Consulting Physician Urology 02/03/24 documented as of this encounter
--- OUTSIDE RECORDS SUMMARY | 2024-11-01 14:37 | XMS_ITS | Encounter Summary ---
Author Organization [facility] Address [address] [place] [address] Phone Care Team Providers Care Potato Chip Cooker Machine Name Role Phone Enzo Holloway MD Primary Care Provider [phone] Kvng Jaeger MD Unavailable [phone] Ela Kim APRN, ENTRY EXAMINER Unavailable [phone] Tariq Goyal MD Primary Care Provider [phone] Pablo Mora MD Unavailable [phone] Enzo Holloway MD Primary Care Provider [phone] Tariq Goyal MD Primary Care Provider [phone] Reason for Visit * Reason Comments Medication Refill Encounter Details Date Type Department Care Team (Late st Contact Info) Description 07/13/2021 Refill [facility] - Neu[facility] #2 [place] [address] Ela Kim APRN, ENTRY EXAMINER [address] [place] [address] Medication Refill Social History Tobacco Use Types [...] COVID-19? No / Unsure 07/14/2021 2:55 PM STRATEGY MANAGER documented as of this encounter Plan of Treatment Upcoming Encounters Date Type Department Care Team (Late st Contact Info) Description 12/07/2024 11:00 AM CDT Procedure Visit [facility] - Neurology [facility] #[address] [place] [address] Kvng Jaeger MD [address] [place] [address] documented as of this encounter Visit Diagnoses Not on filedocumented in this encounter Additional Health Concerns Assessment Noted Time PHQ-9 Depression Total Score: 0 02/04/20 21 1:00 PM CDT documented as of this encounter Care Teams Potato Chip Cooker Machine Relationship Specialty Start Date End Date Enzo Holloway MD #[address] [address] PCP - General Family Medicine 04/27/17 12/27/23 Tariq Goyal MD [address] [place] [address] PCP - General Family Medicine 12/28/23 04/02/24 Enzo Holloway MD #[address] [address] PCP - General Family Medicine 04/03/24 08/30/24 Tariq Goyal MD [address] [place] [address] PCP - General Family Medicine 08/31/24 Kvng Jaeger MD #[address] [place] [address] Consulting Physician Neurology 04/12/23 Ela Kim, CAREGIVER ASSISTED LIVING, ENTRY EXAMINER [address] [place] [address] Nurse Practitioner Advanced Practice Nurse 03/15/22 Pablo Mora MD #[address] [address] Consulting Physician Urology 02/03/24 documented as of this encounter
--- OUTSIDE RECORDS SUMMARY | 2024-11-01 14:37 | XMS_ITS | Encounter Summary ---
Author Organization [facility] Address [address] [place] [address] Phone Care Team Providers Care Construction Administrative Assistant Name Role Phone Kvng Jaeger MD Unavailable [phone] Ela Kim APRN, [facility] Unavailable [phone] Pablo Mora MD Unavailable [phone] Tariq Goyal MD Primary Care Provider [phone] Reason for Visit * Auth/Cert (Routine) Specialty Diagnoses / Procedures Referred By Contac t Referred To Contact Diagnoses GROSS HEMATURIA Procedures CYSTOSCOPY,DIL URETHRAL STRICTURE CYSTOSCOPY URETHRAL DILATATION Pablo Mora MD #[address] [address] Phone: tel: fax: Referral ID Status Reason Start Date Expiration Date Visits Re quested Visits Authorized [id number] 1 1 Encounter Details Date Type Department Care Team (Late st Contact Info) Description 10/23/2024 Hospital Encounter [facility] Periop 1 [place] [id number] Pablo Mora MD #[address] [address] Social History Tobacco Use Types Packs/Day Years Used Date Smoking Tobacco: Every Day Cigarettes 0.3 32.6 Started: 04/01/1992 Smokeless Tobacco: Never Comments:2 cigarettes per da y Alcohol Use Standard Drinks/Week Comments Yes 0 (1 standard drink = 0.6 oz pur e alcohol) occasional [facility] Utilities Answer Date Recorded In the [...] declined 04/23/2024 How often do you attend sabianist or tenriism serv ices? Patient declined 04/23/2024 Do you belong to any clubs o r organizations such as sabianist groups, unions, fraternal or athletic groups, or [...] Total Score - Questions 1-9 0 01/25 [facility] [place] of Occupat ional Health - Occupational Stress [...] any time in the past 12 m [facility], were you homeless or living in a alf (including now)? Patient declined 04/23/2024 Education Answer [...] your photo ID and insurance card. ARRANGE SUTURE GAUGER- David For your safety, after having anesthesia, You must have an adult tractor driver teamster (18 yrs or older) arranged in advance [...] Tylenol the day of Surgery 1. Hydrocodone-acetaminophen ([place]) IF needed AND can tolerate on an [...] list of current medications, including and any nbco-obt-rtmyddi medications and supplements(such as herbs and essential [...] PRE- SURGICAL TESTING. Thank you for selecting [facility] ([facility]) for your procedure.We know you have a choice for your healthcare and we are pleased to provide you with this service. Our [facility] is to: Serve with the Greatest Care and Love . We are not employees of [facility], we are [employer] [employer] driven to provide care based on our [facility], Vision and Values. Please do not hesitate to let us know if you have any questions or concerns. May God Bless you and we look forward to serving you. Your Perioperative Team. * Interdisciplinary - Jennifer Acosta RN - 10/22/2024 9:28 AM CDT [facility] ADULT TEACHING Patient Name: Bang Saxena : 1985 [facility]#: [id number] Person Educated Patient Ready to Learn Yes [...] be allowed to accompany you to the [facility]. No children under theage of 16 will be allowed in the [facility] unless they are the patient. If the [...] Patient Response: Verbalizes Understanding Patient assessed for speech language therapist during the preop interview and appropriate interventions [...] [facility] - Neurology - [place] #2 [place] [address] Kvng Jaeger MD #2 [place] [address] documented as of this encounter Visit Diagnoses Not on filedocumented in this encounter Additional Health Concerns Assessment Noted Time PHQ-9 Depression Total Score: 0 02/04/20 21 1:00 PM CDT documented as of this encounter Care Teams Construction Administrative Assistant Relationship Specialty Start Date End Date Tariq Goyal MD [address] [place] [address] PCP - General Family Medicine 08/31/24 Kvng Jaeger MD #1 [place] [address] Consulting Physician Neurology 04/12/23 Ela Kim APRN, CORKING MACHINE OPERATOR #2 [place] [address] Nurse Practitioner Advanced Practice Nurse 03/15/22 Pablo Mora MD #[address] [address] Consulting Physician Urology 02/03/24 documented as of this encounter
--- OUTSIDE RECORDS SUMMARY | 2024-11-01 14:37 | XMS_ITS | Encounter Summary ---
Author Organization [facility] Address [address] [place] [address] Phone Care Team Providers Care Scaffold Builder Name Role Phone Enzo Holloway MD Primary Care Provider [phone] Kvng Jaeger MD Unavailable [phone] Ela Kim APRN, MANAGEMENT ACCOUNTANT Unavailable [phone] Tariq Goyal MD Primary Care Provider [phone] Pablo Mora MD Unavailable [phone] Enzo Holloway MD Primary Care Provider [phone] Tariq Goyal MD Primary Care Provider [phone] Reason for Visit * Reason Comments Medication Refill Encounter Details Date Type Department Care Team (Late st Contact Info) Description 12/19/2021 Refill [facility] - Neurology [facility] #2 [place] [phone] Ela Kim APRN, MANAGEMENT ACCOUNTANT #2 [place] [address] Medication Refill Social History Tobacco Use Types [...] Description 12/07/2024 11:00 AM CDT [facility] #2 [place] [address] Kvng Jaeger MD #2 [place] [address] documented as of this encounter Visit Diagnoses Not on filedocumented in this encounter Additional Health Concerns Assessment Noted Time PHQ-9 Depression Total Score: 0 02/04/20 21 1:00 PM CDT documented as of this encounter Care Teams Scaffold Builder Relationship Specialty Start Date End Date Enzo Holloway MD #[address] [address] PCP - General Family Medicine 04/27/17 12/27/23 Tariq Goyal MD [address] [place] [address] PCP - General Family Medicine 12/28/23 04/02/24 Enzo Holloway MD #[address] [address] PCP - General Family Medicine 04/03/24 08/30/24 Tariq Goyal MD [address] [place] [address] PCP - General Family Medicine 08/31/24 Kvng Jaeger MD #1 [place] [address] Consulting Physician Neurology 04/12/23 Ela Kim APRN, MANAGEMENT ACCOUNTANT #2 [place] [address] Nurse Practitioner Advanced Practice Nurse 03/15/22 Pablo Mora MD #[address] [address] Consulting Physician Urology 02/03/24 documented as of this encounter
--- OUTSIDE RECORDS SUMMARY | 2024-11-01 14:37 | XMS_ITS | Clinical Summary ---
Author Organization [facility] Address #1 [place] [address] Phone Care Team Providers Care Furniture Finisher Apprentice Name Role Phone Kvng Jaeger MD Unavailable [phone] Ela Kim APRN, FITTING ROOM OPERATOR Unavailable [phone]- [phone] Pablo Mora MD Unavailable [phone] Tariq Goyal MD Primary Care Provider [phone] Allergies Active Allergy Reactions Criticality Noted Date [...] Team Description 10/23/2024 Hospital En[facility] Periop 1 [facility] [place] [address] Pablo Mora MD 10/22/2024 Telephone [facility] PHYSICIAN [facility] UROLOGY #2 [facility] [place] [address] Pablo Mora MD 10/22/2024 Travel 09/21/2024 Refill [facility] - Neurology - [place] #2 [facility] [place] [address] Ela Kim APRN, FITTING ROOM OPERATOR Medication Refill 09/19/2024 Telephone [facility] UROLOGY #2 [facility] [place] [address] Pablo Mora MD 09/07/2024 1:00 PM CDT Procedure Visit [facility] UROLOGY #2 [facility] [address] Pablo Mora MD Gross hematuria (Primary Dx) Discharge Disposition: Discharged to home or Selfcare 09/07/2024 Travel 08/31/2024 9:00 AM CONE CHOCOLATE DIPPER [facility] #2 [place] [address] Kvng Jaeger MD Chronic migraine without aura, not intractable, without status migrainosus (Primary Dx) Discharge Disposition: Discharged to home or Selfcare 08/31/2024 [facility] [place] [address] Ela Kim APRN, FITTING ROOM OPERATOR 08/31/2024 Travel 08/15/2024 [facility]2 [place] [address] Ela Kim REVENUE DIRECTOR, FITTING ROOM OPERATOR Medication Refill from Last 3 Months Immunizations Immunization Administration Dates Next Due Covid-19, Mrna, Lnp-s, Pf, 3 0 Mcg/0.3 Ml Dose ([employer]) 09/20/2020,08/30/2020 DTP Vaccine 10/13/1988, 5,04/02/1984,1983,02/02/1984 Influenza Vaccine [...] declined 04/23/2024 How often do you attend hoahaoism or jewish serv ices? Patient declined 04/23/2024 Do you belong to any clubs o r organizations such as hoahaoism groups, unions, fraternal or athletic groups, or [...] Total Score - Questions 1-9 0 01/25 [facility] of Occupat ional Health - Occupational Stress [...] any time in the past 12 m [facility], were you homeless or living in a jail (including now)? Patient declined 04/23/2024 Education Answer [...] 36.5 C (97.7 F) 05/01/2024 10:25 AM CONE CHOCOLATE DIPPER Respiratory Rate 12 09/07/2024 12:56 PM CDT [...] Visit [facility] Neurology [facility] #2 [place] [address] Kvng Jaeger MD #2 [place] [address] Health Maintenance Due Date Last Done Comments [...] (Adult) (1 - 1-dose 75+ series) 11/15/2058 Human Papillomavirus (HPV) Immunization Aged Out No longer eligible based on patient's age to complete this topic Meningococcal Immunization (ACWY) Aged Out No longer [...] FACIAL/TRIGEMINAL/CE RV SPINE Routine 08/31/2024 9:00 AM CONE CHOCOLATE DIPPER Chronic migraine without aura, not intractable, without status migrainosus from Last 3 Months Results * CULTURE, URINE (09/07/2024 1:37 PM CDT) CULTURE RESULTS No growth final 09/08/2024 9:44 PM CDT [facility] Culture URINE SPECIMEN OBTAINED BY CLEAN CATCH PROCEDURE / Unknown Non-Phlebotomy Collection / Unknown 09/07/2024 1:37 PM CDT 09/07/2024 1:37 PM CDT Pablo Agustin MD MICROBIOLOGY - GENERAL ORDERAB LES Final Result Performing Organization Address City/State/[facility] Co de Phone Number [facility] [address] [place] [address], * POCT UA AUTOMATED W/O MICRO (09/07/2024 [...] Clear Urine 09/07/2024 12:5 7 PM CDT us Pablo Agustin MD POINT OF CARE TESTING (MANUAL) Final Result * CHEMODENERV MUSCLE(S) BILAT FACIAL/TRIGEMINAL/CERV SPINE (08/31/2024 9:00 AM CONE CHOCOLATE DIPPER) Narrative Kvng Jaeger MD - 08/31/2024 9:00 AM CONE CHOCOLATE DIPPER Kvng Jaeger MD 09/26/2024 7:24 PM Bang [...] procedure with no complications. Kvng Jaeger MD [place] - SURGERY Final Result from Last 3 Months Insurance [place] Advance Directives * Full Code (Latest Code Status on File) Date Activated Date Inactivated Comments 04/23/2024 9:06 PM CPR-Full Trinh tment: FULL ARREST: Attempt Resuscitation/CPR wit intubation and mechanical ventilation. PRE-ARREST: Use entire range of life support measures to stabilize the patient. Care Teams Furniture Finisher Apprentice Relationship Specialty Start Date End Date Tariq Goyal MD [address] [place] [address] PCP - General Family Medicine 08/31/24 vKng Jaeger MD #1 [place] [address] Consulting Physician Neurology 04/12/23 Ela Kim, REVENUE DIRECTOR, FITTING ROOM OPERATOR #2 [place] [address] Nurse Practitioner Advanced Practice Nurse 03/15/22 Pablo Mora MD #[address] [address] Consulting Physician Urology 02/03/24
--- OUTSIDE RECORDS SUMMARY | 2024-11-01 14:38 | XMS_ITS | Encounter Summary ---
Author Organization [facility] Address [address] [facility] [place] [address] Phone Care Team Providers Care Machinery Cleaner Name Role Phone Enzo Holloway MD Primary Care Provider [phone] Kvng Jaeger MD Unavailable [phone] Ela Kim APRN, [facility] Unavailable [phone] Tariq Goyal MD Primary Care Provider [phone] Pablo Mora MD Unavailable [phone] Enzo Holloway MD Primary Care Provider [phone] Tariq Goyal MD Primary Care Provider [phone] Reason for Visit * Reason Comments Medication Refill Encounter Details Date Type Department Care Team (Late st Contact Info) Description 04/29/2021 [facility]ill [facility] - [place] #2 [place] [address] Danya Lozano November, PAC [address] [place] [address] Medication Refill Social History Tobacco Use Types [...] Valerie Joyce RN - 05/04/2021 12:34 PM OCCUPATIONAL HYGIENIST Medication refilled and signed per [facility] chronic medication standing order for pediatric and adult patients. PATIONAL HYGIENIST * Telephone Encounter - Valerie Joyce RN - 05/04/2021 12:28 PM OCCUPATIONAL HYGIENIST Pharmacy requesting refill of: Requested Prescriptions Pending Prescriptions Disp Refills ??? omeprazole (PriLOSEC) 20 MG CAPSULE DELAYED RELEASE [Pharmacy Med Name: OMEPRAZOLE 20MG CPDR] 180 Capsule 1 Sig: TAKE ONE CAPSULE BY MOUTH TWICE A DAY Last fill: 05/15/2020 for 180 caps and 1 refill Patients last OV with GI: 05/15/2020 Next Office Visit with GI: 05/18/2021 PATIONAL HYGIENIST documented in this encounter Plan of Treatment Upcoming Encounters Date Type Department Care Team (Late st Contact Info) Description 12/07/2024 11:00 AM CDT [facility] #2 [place] [address] Kvng Jaeger MD #2 [place] [address] documented as of this encounter Visit Diagnoses Diagnosis Gastroesophageal reflux disease without esophagitis Esophageal reflux documented in this encounter Additional Health Concerns Assessment Noted Time PHQ-9 Depression Total Score: 0 02/04/20 21 1:00 PM CDT documented as of this encounter Care Teams Machinery Cleaner Relationship Specialty Start Date End Date Enzo Holloway MD #[address] [address] PCP - General Family Medicine 04/27/17 12/27/23 Tariq Goyal MD [address] [place] [address] PCP - General Family Medicine 12/28/23 04/02/24 Enzo Holloway MD #[address] [address] PCP - General Family Medicine 04/03/24 08/30/24 Tariq Goyal MD [address] [place] [address] PCP - General Family Medicine 08/31/24 Kvng Jaeger MD #1 [place] [address] Consulting Physician Neurology 04/12/23 Ela Kim, ANTENNA SPECIALIST, AUTOMOBILE SERVICE STATION ATTENDANT #2 [place] [address] Nurse Practitioner Advanced Practice Nurse 03/15/22 Pablo Mora MD #[address] [address] Consulting Physician Urology 02/03/24 documented as of this encounter
--- OUTSIDE RECORDS SUMMARY | 2024-11-01 14:38 | XMS_ITS | Encounter Summary ---
Author Organization [facility] Address [address] [place] [address] Phone Care Team Providers Care Distance Education Coordinator Name Role Phone Enzo Holloway MD Primary Care Provider [phone] Kvng Jaeger MD Unavailable [phone] Ela Kim APRN, INSTRUCTOR BALLROOM DANCING Unavailable [phone] Tariq Goyal MD Primary Care Provider [phone] Pablo Mora MD Unavailable [phone] Enzo Holloway MD Primary Care Provider [phone] Tariq Goyal MD Primary Care Provider [phone] Reason for Visit * Reason Comments Medication Refill Encounter Details Date Type Department Care Team (Late st Contact Info) Description 11/21/2023 Refill [facility] - Neurology [facility] #2 [place] [address] Ela Kim APRN, INSTRUCTOR BALLROOM DANCING #2 [place] [address] Medication Refill Social History Tobacco Use Types [...] AM CDT Medication(s) refilled and signed per [facility] Chronic Medication Refill Standing Order for Pediatricand [...] Dept 09/23/23 Procedure Visit Kvng Jaeger MD [facility] Neurology [facility] [address] 09/13/23 Office Visit Ela Kim APRN, INSTRUCTOR BALLROOM DANCING [facility] Neu[facility] [address] 07/01/23 Procedure Visit Kvng Jaeger MD [facility] Neu[facility] [address] 04/01/23 Procedure Visit Kvng Jaeger MD [facility] [address] 01/20/23 Office Visit Ela Kim APRN, [place] [facility] Neu[facility] [address] 01/07/23 Procedure Visit Kvng Jaeger MD [facility] [address] 12/14/22 Office Visit Enzo Holloway MD [facility] Showing recent visits within past 365 days and meeting all other requirements Future Appointments Date Type Provider Dept 12/16/23 Appointment Enzo Holloway MD [facility] 12/23/23 Appointment Kvng Jaeger MD [facility] Neurology [facility] Show[facility] future appointments within next 90 days and meeting all other requirements documented in this encounter Plan of Treatment Upcoming Encounters Date Type Department Care Team (Late st Contact Info) Description 12/07/2024 11:00 AM CDT [facility] - Neurology - [place] #2 [place] [address] Kvng Jaeger MD #2 [place] [address] documented as of this encounter Visit Diagnoses Diagnosis Chronic migraine w/o aura w/o status migrainosus, not intractable Chronic migraine without aura, without mention of intractable migraine without mention of status migrainosus Primary hypertension Unspecified essential hypertension documented in this encounter Additional Health Concerns Assessment Noted Time PHQ-9 Depression Total Score: 0 02/04/20 21 1:00 PM CDT documented as of this encounter Care Teams Distance Education Coordinator Relationship Specialty Start Date End Date Enzo Holloway MD #[address] [address] PCP - General Family Medicine 04/27/17 12/27/23 Tariq Goyal MD [address] [place] [address] PCP - General Family Medicine 12/28/23 04/02/24 Enzo Holloway MD #[address] [address] PCP - General Family Medicine 04/03/24 08/30/24 Tariq Goyal MD [address] [place] [address] PCP - General Family Medicine 08/31/24 Kvng Jaeger MD #1 [place] [address] Consulting Physician Neurology 04/12/23 Ela Kim APRN, INSTRUCTOR BALLROOM DANCING #2 [place] [address] Nurse Practitioner Advanced Practice Nurse 03/15/22 Pablo Mora MD #[address] [address] Consulting Physician Urology 02/03/24 documented as of this encounter
== END 2024-11-01 14:35 | disposition home or self-care (01) ==
LOC: CHSLAB 14:36
PROVIDERS: PCP Family Medicine; Visit Provider Family Medicine
DX: N10 Acute pyelonephritis (principal); R35.0 Frequency of micturition
CPT/HCPCS: 87086

== ENCOUNTER 2024-11-20 15:54 | Outpatient (CLI) | payer OTHER, SELFPAY ==
--- OUTSIDE RECORDS SUMMARY | 2024-11-20 15:57 | XMS_ITS | Encounter Summary ---
Author Organization [facility] Address [address] [place] [address] Phone Care Team Providers Care Client Manager Name Role Phone Enzo Holloway MD Primary Care Provider Kvng Jaeger MD Unavailable [phone] Ela Kim APRN, ELECTRIC SERVICEMAN Unavailable [phone] Tariq Goyal MD Primary Care Provider [phone] Pablo Mora MD Unavailable [phone] Enzo Holloway MD Primary Care Provider [phone] Tariq Goyal MD Primary Care Provider [phone] Reason for Visit * Reason Comments Medication Refill Encounter Details Date Type Department Care Team (Late st Contact Info) Description 03/05/2022 Refill [facility] - Neurology [facility] #2 [place] [address] Ela Kim APRN, ELECTRIC SERVICEMAN #[address] [place] [address] Medication Refill Social History Tobacco Use Types [...] Upcoming Encounters Date Type Department Care Team (Latest Contact Info) Description 12/07/2024 11:00 AM CDT Procedure Visit [facility] - Neurology [facility] #2 [place] [address] Kvng Jaeger MD #[address] [place] [address] 12/25/2024 1:40 PM CDT [facility] 1 [place] [address] Pablo Mora MD #[address] [address] 12/25/2024 1:40 PM CDT - 12/25/2024 2:40 PM CDT [facility] 1 [place] [address] Pablo Mora MD #[address] [address] CYSTOSCOPY, MEATAL DILATATION 01/11/2025 11:30 AM CDT Office Visit [facility] #2 [place] [address] Pablo Mora MD #2 [facility] [address] [place] [address] Scheduled Procedures Name Priority Associated Diagnoses Date/Ti me CYSTOSCOPY URETHRAL DILATATION GROSS HEMATURIA 12/25/2024 1:40 PM CDT documented as of this encounter Visit Diagnoses Not on filedocumented in this encounter Additional Health Concerns Assessment Noted Time PHQ-9 Depression Total Score: 0 02/04/20 21 1:00 PM CDT documented as of this encounter Care Teams Client Manager Relationship Specialty Start Date End Date Enzo Holloway MD #[address] [address] PCP - General Family Medicine 04/27/17 12/27/23 Tariq Goyal MD [address] [place] [address] PCP - General Family Medicine 12/28/23 04/02/24 Enzo Holloway MD #[address] [address] PCP - General Family Medicine 04/03/24 08/30/24 Tariq Goyal MD [address] [place] [address] PCP - General Family Medicine 08/31/24 Kvng Jaeger MD #[address] [place] [address] Consulting Physician Neurology 04/12/23 Ela Kim, SECOND MATE, ELECTRIC SERVICEMAN [address] [place] [address] Nurse Practitioner Advanced Practice Nurse 03/15/22 Pablo Mora MD #2 [place] [address] [place] [address] Consulting Physician Urology 02/03/24 documented as of this encounter
--- OUTSIDE RECORDS SUMMARY | 2024-11-20 15:57 | XMS_ITS | Clinical Summary ---
Author Organization [facility] Address #1 [place] [address] Phone Care Team Providers Care Escalator Mechanic Name Role Phone Kvng Jaeger MD Unavailable [phone] Ela Kim APRN, SAND POLISHER Unavailable [phone] Pablo Mora MD Unavailable [phone] Tariq Goyal MD Primary Care Provider [phone] Allergies Active Allergy Reactions Criticality Noted Date [...] Encounters Date Type Department Care Team Description 11/13/2024 Telephone [facility] [address] [place] [address] Pablo Mora MD 10/22/2024 Telephone [facility] UROLOGY #[address] [place] [address] Pablo Mora MD 10/22/2024 Travel 09/21/2024 Refill [facility] - Neurology [facility] #[address] [place] [address] Ela Kim APRN, SAND POLISHER Medication Refill 09/19/2024 Telephone [facility] UROLOGY #[address] [place] [address] Pablo Mora MD 09/07/2024 1:00 PM CDT Procedure Visit [facility] UROLOGY #[address] [place] [address] Pablo Mora MD Gross hematuria (Primary Dx) Discharge Disposition: Discharged to home or Selfcare 09/07/2024 Travel 08/31/2024 9:00 AM MECHANICAL ENGINEER [facility] #2 [place] [address] Kvng Jaeger MD Chronic migraine without aura, not intractable, without status migrainosus (Primary Dx) Discharge Disposition: Discharged to home or Selfcare 08/31/2024 [facility] [place] [address] Ela Kim, WAX BLEACHER, SAND POLISHER 08/31/2024 Travel from Last 3 Months Immunizations Immunization Administration Dates Next Due Covid-19, Mrna, Lnp-s, Pf, 3 0 Mcg/0.3 Ml Dose ([employer]) 09/20/2020,08/30/2020 DTP Vaccine 10/13/1988, 5,04/02/1984,1983,02/02/1984 Influenza Vaccine [...] = 0.6 oz pur e alcohol) occasional [facility] Utilities Answer Date Recorded In the past [...] declined 04/23/2024 How often do you attend yazidi or anabaptism serv ices? Patient declined 04/23/2024 Do you belong to any clubs o r organizations such as yazidi groups, unions, fraternal or athletic groups, or [...] Total Score - Questions 1-9 0 01/25 [facility] [place] of Occupat ional Health - Occupational Stress [...] any time in the past 12 m [facility], were you homeless or living in [...] 36.5 C (97.7 F) 05/01/2024 10:25 AM MECHANICAL ENGINEER Respiratory Rate 12 09/07/2024 12:56 PM CDT Oxygen Saturation 96% 09/07/2024 12:56 PM CDT Inhaled Oxygen Concentration - - Weight 104.3 kg (230 lb) 10/22/2024 9:00 AM CDT Height 177.8 cm (5' 10) 10/22/2024 9:00 AM CDT Body Mass Index 33 10/22/2024 9:00 AM CDT Plan of Treatment Upcoming Encounters Date Type Department Care Team (Latest Contact Info) Description 12/07/2024 11:00 AM CDT [facility] #2 [place] [address] Kvng Jaeger MD #2 [place] [address] 12/25/2024 1:40 PM CDT [facility] [place] [address] Pablo Mora MD #[address] [address] 12/25/2024 1:40 PM CDT - 12/25/2024 2:40 PM CDT [facility] [place] [address] Pablo Mora MD #[address] [address] CYSTOSCOPY, MEATAL DILATATION 01/11/2025 11:30 AM CDT Office Visit [facility] UR[facility]Y #2 [place] [address] Pablo Mora MD #[address] [address] Scheduled Procedures Name Priority Associated Diagnoses Date/Ti me CYSTOSCOPY URETHRAL DILATATION GROSS HEMATURIA 12/25/2024 1:40 PM CDT Health Maintenance Due Date Last Done Comments Hepatitis C Virus (HCV) Screening 1983 Hepatitis B Immunization (1 of 3 - 19+ 3-dose series) 11/15/2002 Pneumococcal Immunization Combined (1 of 2 - PCV) 11/15/2002 SARS-COV-2 Immunization ( - season) 2024 06/08/2021, 09/20/2020, 08/30/2020 Influenza Immunization [...] FACIAL/TRIGEMINAL/CE RV SPINE Routine 08/31/2024 9:00 AM MECHANICAL ENGINEER Chronic migraine without aura, not intractable, without status migrainosus from Last 3 Months Results * CULTURE, URINE (09/07/2024 1:37 PM CDT) CULTURE RESULTS No growth final 09/08/2024 9:44 PM CDT [facility] Culture URINE SPECIMEN OBTAINED BY CLEAN CATCH PROCEDURE / Unknown Non-Phlebotomy Collection / Unknown 09/07/2024 1:37 PM CDT 09/07/2024 1:37 PM CDT Pablo Agustin MD MICROBIOLOGY - GENERAL ORDERAB LES Final Result [facility] [address] [place] [address], [place] * POCT UA AUTOMATED W/O MICRO (09/07/2024 [...] MUSCLE(S) BILAT FACIAL/TRIGEMINAL/CERV SPINE (08/31/2024 9:00 AM MECHANICAL ENGINEER) Narrative Kvng Jaeger MD - 08/31/2024 9:00 AM MECHANICAL ENGINEER Kvng Jaeger MD 09/26/2024 7:24 PM Mary presents for administration of botox for treatment [...] Patient tolerated the procedure with no complications. us Kvng Jaeger MD [place] - SURGERY Final Result from Last 3 Months Insurance MEDICAID [place] Advance Directives * Full Code (Latest Code Status on File) Date Activated Date Inactivated Comments 04/23/2024 9:06 PM CPR-Full Trinh tment: FULL ARREST: Attempt Resuscitation/CPR wit intubation and mechanical ventilation. PRE-ARREST: Use entire range of life support measures to stabilize the patient. Care Teams Escalator Mechanic Relationship Specialty Start Date End Date Tariq Goyal MD [address] [place] [address] PCP - General Family Medicine 08/31/24 Kvng Jaeger MD #1 [place] [address] Consulting Physician Neurology 04/12/23 Ela Kim APRN, SAND POLISHER #2 [place] [address] Nurse Practitioner Advanced Practice Nurse 03/15/22 Pablo Mora MD #[address] [address] Consulting Physician Urology 02/03/24
--- OUTSIDE RECORDS SUMMARY | 2024-11-20 15:57 | XMS_ITS | Encounter Summary ---
Author Organization [facility] Address [address] [place] [address] Phone Care Team Providers Care Hospital Sales Representative Name Role Phone Enzo Holloway MD Primary Care Provider [phone] Kvng Jaeger MD Unavailable [phone] Ela Kim APRN, INDUSTRIAL ECONOMICS TEACHER Unavailable [phone] Tariq Goyal MD Primary Care Provider [phone] Pablo Mora MD Unavailable [phone] Enzo Holloway MD Primary Care Provider [phone] Tariq Goyal MD Primary Care Provider [phone] Reason for Visit * Reason Comments Medication Refill Encounter Details Date Type Department Care Team (Late st Contact Info) Description 06/19/2022 Refill [facility] - Neurology [facility] #2 [place] [address] Ela Kim APRN, INDUSTRIAL ECONOMICS TEACHER #2 [place] [address] Medication Refill Social History Tobacco Use Types [...] Description 12/07/2024 11:00 AM CDT [facility] - [place] #2 [place] [address] Kvng Jaeger MD #2 [place] [address] 12/25/2024 1:40 PM CDT [facility] [place] [address] Pablo Mora MD #[address] [address] 12/25/2024 1:40 PM CDT - 12/25/2024 2:40 PM CDT [facility] [place] [address] Pablo Mora MD #[address] [address] CYSTOSCOPY, MEATAL DILATATION 01/11/2025 11:30 AM CDT Office Visit [facility] #2 [place] [address] Pablo Mora MD #[address] [address] Scheduled Procedures Name Priority Associated Diagnoses Date/Ti [...] documented as of this encounter Care Teams Hospital Sales Representative Relationship Specialty Start Date End Date Enzo Holloway MD #[address] [address] PCP - General Family Medicine 04/27/17 12/27/23 Tariq Goyal MD [address] [place] [address] PCP - General Family Medicine 12/28/23 04/02/24 Enzo Holloway MD #[address] [address] PCP - General Family Medicine 04/03/24 08/30/24 Tariq Goyal MD [address] [place] [address] PCP - General Family Medicine 08/31/24 Kvng Jaeger MD #1 [place] [address] Consulting Physician Neurology 04/12/23 Ela Kim, CARDIOGRAPHER, INDUSTRIAL ECONOMICS TEACHER #2 [place] [address] Nurse Practitioner Advanced Practice Nurse 03/15/22 Pablo Mora MD #2 [facility] [address] [address] Consulting Physician Urology 02/03/24 documented as of this encounter
--- OUTSIDE RECORDS SUMMARY | 2024-11-20 15:57 | XMS_ITS | Encounter Summary ---
Author Organization [facility] Address [address] [place] [address] Phone Care Team Providers Care Road Service Locksmith Name Role Phone Enzo Holloway MD Primary Care Provider [phone] Kvng Jaeger MD Unavailable [phone] Ela Kim APRN, PAPER STRIPPER Unavailable [phone] Tariq Goyal MD Primary Care Provider Pablo Mora MD Unavailable [phone] Enzo Holloway MD Primary Care Provider [phone] Tariq Goyal MD Primary Care Provider [phone] Reason for Visit * Reason Comments Medication Refill Encounter Details Date Type Department Care Team (Late st Contact Info) Description 05/12/2022 Refill [facility] - [facility] #2 [place] [address] Ela Kim APRN, PAPER STRIPPER #2 [place] [address] Medication Refill Social History Tobacco Use Types [...] Coronavirus/COVID-19? No / Unsure 05/04/2022 10:32 AM SENIOR LEAD DEVELOPER documented as of this encounter Plan of Treatment Upcoming Encounters Date Type Department Care Team (Latest Contact Info) Description 12/07/2024 11:00 AM CDT [facility] #2 [place] [address] Kvng Jaeger MD #2 [place] [address] 12/25/2024 1:40 PM CDT [facility] 1 [place] [address] Pablo Mora MD #[address] [address] 12/25/2024 1:40 PM CDT - 12/25/2024 2:40 PM CDT [facility] 1 [place] [address] Pablo Mora MD #[address] [address] CYSTOSCOPY, MEATAL DILATATION 01/11/2025 11:30 AM CDT Office Visit [facility] #2 [place] [address] Pablo Mora MD #[address] [facility] [address] [place] [address] Scheduled Procedures Name Priority Associated Diagnoses Date/Ti me CYSTOSCOPY URETHRAL DILATATION GROSS HEMATURIA 12/25/2024 1:40 PM CDT documented as of this encounter Visit Diagnoses Diagnosis Chronic migraine without aura, not intractable, without status migrainosus documented in this encounter Additional Health Concerns Assessment Noted Time PHQ-9 Depression Total Score: 0 02/04/20 21 1:00 PM CDT documented as of this encounter Care Teams Road Service Locksmith Relationship Specialty Start Date End Date Enzo Holloway MD #[address] [address] PCP - General Family Medicine 04/27/17 12/27/23 Tariq Goyal MD [address] [place] [address] PCP - General Family Medicine 12/28/23 04/02/24 Enzo Holloway MD #[address] [address] PCP - General Family Medicine 04/03/24 08/30/24 Tariq Goyal MD [address] [place] [address] PCP - General Family Medicine 08/31/24 Kvng Jaeger MD #1 [place] [address] Consulting Physician Neurology 04/12/23 Ela Kim, CHEMICAL LABORATORY TESTER, PAPER STRIPPER #2 [facility] [place] [address] Nurse Practitioner Advanced Practice Nurse 03/15/22 Pablo Mora MD #[address], [address] [address] Consulting Physician Urology 02/03/24 documented as of this encounter
--- OUTSIDE RECORDS SUMMARY | 2024-11-20 15:57 | XMS_ITS | Encounter Summary ---
Author Organization [facility] Address [address] [facility] [place] [address] Phone Care Team Providers Care Commercial Hvac Service Technician Name Role Phone Enzo Holloway MD Primary Care Provider [phone] Kvng Jaeger MD Unavailable [phone] Ela Kim APRN, [facility] Unavailable + [phone] Tariq Goyal MD Primary Care Provider [phone] Pablo Mora MD Unavailable [phone] Enzo Holloway MD Primary Care Provider [phone] Tariq Goyal MD Primary Care Provider [phone] Reason for Visit * Reason Comments Medication Refill Encounter Details Date Type Department Care Team (Late st Contact Info) Description 04/29/2021 Refill [facility] - [place] #2 [place] [address] Danya Lozano Dominga, PAC [address] [place] [address] Medication Refill Social History Tobacco Use Types [...] Valerie Joyce RN - 05/04/2021 12:34 PM GOLF CLUB ASSEMBLER Medication refilled and signed [facility] chronic medication standing order for pediatric and adult patients. CLUB ASSEMBLER * Telephone Encounter - Valerie Joyce RN - 05/04/2021 12:28 PM GOLF CLUB ASSEMBLER Pharmacy requesting refill of: Requested Prescriptions Pending Prescriptions Disp Refills ??? omeprazole (PriLOSEC) 20 MG CAPSULE DELAYED RELEASE [Pharmacy Med Name: OMEPRAZOLE 20MG CPDR] 180 Capsule 1 Sig: TAKE ONE CAPSULE BY MOUTH TWICE A DAY Last fill: 05/15/2020 for 180 caps and 1 refill Patients last OV with GI: 05/15/2020 Next Office Visit with GI: 05/18/2021 CLUB ASSEMBLER documented in this encounter Plan of Treatment Upcoming Encounters Date Type Department Care Team (Latest Contact Info) Description 12/07/2024 11:00 AM CDT [facility] #2 [place] [address] Kvng Jaeger MD #2 [place] [address] 12/25/2024 1:40 PM CDT [facility] [place] [address] Pablo Mora MD [facility] [address] [address] 12/25/2024 1:40 PM CDT - 12/25/2024 2:40 PM CDT [facility] 1 [place] [address] Pablo Mora MD #[address] [address] CYSTOSCOPY, MEATAL DILATATION 01/11/2025 11:30 AM CDT Office Visit [facility] UROLOGY #2 [place] [address] Pablo Mora MD #[address] [address] Scheduled Procedures Name Priority Associated Diagnoses Date/Ti me CYSTOSCOPY URETHRAL DILATATION GROSS HEMATURIA 12/25/2024 1:40 PM CDT documented as of this encounter Visit Diagnoses Diagnosis Gastroesophageal reflux disease without esophagitis Esophageal reflux documented in this encounter Additional Health Concerns Assessment Noted Time PHQ-9 Depression Total Score: 0 02/04/20 21 1:00 PM CDT documented as of this encounter Care Teams Commercial Hvac Service Technician Relationship Specialty Start Date End Date Enzo Holloway MD #2 [facility] [address] [place] [address] PCP - General Family Medicine 04/27/17 12/27/23 Tariq Goyal MD [address] [place] [address] PCP - General Family Medicine 12/28/23 04/02/24 Enzo Holloway MD #[address] [address] PCP - General Family Medicine 04/03/24 08/30/24 Tariq Goyal MD [address] [place] [address] PCP - General Family Medicine 08/31/24 Kvng Jaeger MD #1 [place] [address] Consulting Physician Neurology 04/12/23 Ela Kim APRN, AERODYNAMIC CONSULTANT #2 [place] [address] Nurse Practitioner Advanced Practice Nurse 03/15/22 Pablo Mora MD #[address] [address] Consulting Physician Urology 02/03/24 documented as of this encounter
--- OUTSIDE RECORDS SUMMARY | 2024-11-20 15:57 | XMS_ITS | Encounter Summary ---
Author Organization [facility] Address [address] [place] [address] Phone Care Team Providers Care Youth Specialist Name Role Phone Enzo Holloway MD Primary Care Provider Kvng Jaeger MD Unavailable [phone] Ela Kim APRN, DIRECTOR OF DIVERSITY AND INCLUSION Unavailable [phone] Tariq Goyal MD Primary Care Provider Pablo Mora MD Unavailable [phone] Enzo Holloway MD Primary Care Provider [phone] Tariq Goyal MD Primary Care Provider [phone] Reason for Visit * Reason Comments Medication Refill Encounter Details Date Type Department Care Team (Late st Contact Info) Description 12/19/2021 Refill [facility] - Neurology [facility] #2 [place] [address] Ela Kim APRN, DIRECTOR OF DIVERSITY AND INCLUSION #[address] [place] [address] Medication Refill Social History Tobacco Use Types [...] Description 12/07/2024 11:00 AM CDT [facility] [place] #2 [place] [address] Kvng Jaeger MD #2 [place] [address] 12/25/2024 1:40 PM CDT [facility] 1 [place] [address] Pablo Mora MD #[address] [address] 12/25/2024 1:40 PM CDT - 12/25/2024 2:40 PM CDT [facility] 1 [place] [address] Pablo Mora MD #[address] [address] CYSTOSCOPY, MEATAL DILATATION 01/11/2025 11:30 AM CDT Office Visit [facility] UROLOGY #2 [place] [address] Pablo Mora MD #[address] [address] Scheduled Procedures Name Priority Associated Diagnoses Date/Ti me CYSTOSCOPY URETHRAL DILATATION GROSS HEMATURIA 12/25/2024 1:40 PM CDT documented as of this encounter Visit Diagnoses Not on filedocumented in this encounter Additional Health Concerns Assessment Noted Time PHQ-9 Depression Total Score: 0 02/04/20 21 1:00 PM CDT documented as of this encounter Care Teams Youth Specialist Relationship Specialty Start Date End Date Enzo Holloway MD #[address] [address] PCP - General Family Medicine 04/27/17 12/27/23 Tariq Goyal MD [address] [place] [address] PCP - General Family Medicine 12/28/23 04/02/24 Enzo Holloway MD #[address] [address] PCP - General Family Medicine 04/03/24 08/30/24 Tariq Goyal MD [address] [place] [address] PCP - General Family Medicine 08/31/24 Kvng aJeger MD #1 [place] [address] Consulting Physician Neurology 04/12/23 Ela Kim APRN, DIRECTOR OF DIVERSITY AND INCLUSION #2 [place] [address] Nurse Practitioner Advanced Practice Nurse 03/15/22 Pablo Mora MD #2 [facility] [address] [place] [address] Consulting Physician Urology 02/03/24 documented as of this encounter
--- OUTSIDE RECORDS SUMMARY | 2024-11-20 15:57 | XMS_ITS | Encounter Summary ---
Author Organization [facility] Address [address] [place] [address] Phone Care Team Providers Care Interlocking Tower Operator Name Role Phone Enzo Holloway MD Primary Care Provider [phone] Kvng Jaeger MD Unavailable [phone] Ela Kim APRN, ETYMOLOGY PROFESSOR Unavailable [phone] Tariq Goyal MD Primary Care Provider Pablo Mora MD Unavailable [phone] Enzo Holloway MD Primary Care Provider [phone] Tariq Goyal MD Primary Care Provider [phone] Reason for Visit * Reason Comments Medication Refill Encounter Details Date Type Department Care Team (Late st Contact Info) Description 11/21/2023 Refill [facility] - Neurology [facility] #2 [place] [address] Ela Kim APRN, ETYMOLOGY PROFESSOR #2 [place] [address] Medication Refill Social History Tobacco Use Types [...] AM CDT Medication(s) [facility] Refill Standing Order [...] Dept 09/23/23 Procedure Visit Kvng Jaeger MD [facility] Neurology [facility] [address] 09/13/23 Office Visit Ela Kim APRN, ETYMOLOGY PROFESSOR [facility] [address] 07/01/23 Procedure Visit [facility]vng Jaeger [facility] [address] 04/01/23 Procedure Visit Kvng Jaeger [facility] [address] 01/20/23 Office Visit Ela Kim APRN, [place] [facility] [address] 01/07/23 Procedure Visit Kvng Jaeger MD [facility] Neurology [facility] [address] 12/14/22 Office Visit Enzo Holloway MD [facility] Showing recent visits within past 365 days and meeting all other requirements Future Appointments Date Type Provider Dept 12/16/23 Appointment Enzo Holloway MD [facility] 12/23/23 Appointment Kvng Jaeger MD [facility] Neurology [facility] Showing future appointments within next 90 days and meeting all other requirements documented in this encounter Plan of Treatment Upcoming Encounters Date Type Department Care Team (Latest Contact Info) Description 12/07/2024 11:00 AM CDT Procedure Visit [facility] - Neurology - [place] #[address] [place] [address] Kvng Jaeger MD #2 [place] [address] 12/25/2024 1:40 PM CDT Hospital Encounter [facility] Periop 1 [place] [address] Pablo Mora MD #[address] [address] 12/25/2024 1:40 PM CDT - 12/25/2024 2:40 PM CDT Surgery [facility] Periop 1 [place] [address] Pablo Mora MD #[address] [address] CYSTOSCOPY, MEATAL DILATATION 01/11/2025 11:30 AM CDT Office Visit [facility] #[address] [place] [address] Pablo Mora MD #2 [facility] [address] [place] [address] Scheduled Procedures Name Priority Associated Diagnoses Date/Ti [...] documented as of this encounter Care Teams Interlocking Tower Operator Relationship Specialty Start Date End Date Enzo Holloway MD #[address] [address] PCP - General Family Medicine 04/27/17 12/27/23 Tariq Goyal MD [address] [place] [address] PCP - General Family Medicine 12/28/23 04/02/24 Enzo Holloway MD #[address] [address] PCP - General Family Medicine 04/03/24 08/30/24 Tariq Goyal MD [address] [place] [address] PCP - General Family Medicine 08/31/24 Kvng Jaeger MD #1 [place] [address] Consulting Physician Neurology 04/12/23 Ela Kim, GROVE WORKER, ETYMOLOGY PROFESSOR #2 [place] [address] Nurse Practitioner Advanced Practice Nurse 03/15/22 Pablo Mora MD #[address], [address] [address] Consulting Physician Urology 02/03/24 documented as of this encounter
--- OUTSIDE RECORDS SUMMARY | 2024-11-20 15:57 | XMS_ITS | Encounter Summary ---
Author Organization [facility] Address [address] [place] [address] Phone Care Team Providers Care Sample Shoe Inspector And Reworker Name Role Phone Enzo Holloway MD Primary Care Provider [phone] Kvng Jaeger MD Unavailable [phone] Ela Kim APRN, FIRE WARDEN Unavailable [phone] Tariq Goyal MD Primary Care Provider [phone] Pablo Mora MD Unavailable [phone] Enzo Holloway MD Primary Care Provider [phone] Tariq Goyal MD Primary Care Provider [phone] Reason for Visit * Reason Comments Medication Refill Encounter Details Date Type Department Care Team (Late st Contact Info) Description 02/12/2022 Refill [facility] #2 [place] [address] Ela Kim APRN, FIRE WARDEN #2 [place] [address] Medication Refill Social History Tobacco Use Types [...] Description 12/07/2024 11:00 AM CDT [facility] [place] #2 [place] [address] Kvng Jaeger MD #2 [place] [address] 12/25/2024 1:40 PM CDT [facility] [place] [address] Pablo Mora MD #[address] [address] 12/25/2024 1:40 PM CDT - 12/25/2024 2:40 PM CDT [facility] [place] [address] Pablo Mora MD #[address] [address] CYSTOSCOPY, MEATAL DILATATION 01/11/2025 11:30 AM CDT Office Visit [facility]Y #2 [place] [address] Pablo Mora MD #[address] [address] Scheduled Procedures Name Priority Associated Diagnoses Date/Ti ny CYSTOSCOPY URETHRAL DILATATION GROSS HEMATURIA 12/25/2024 1:40 [...] documented as of this encounter Care Teams Sample Shoe Inspector And Reworker Relationship Specialty Start Date End Date Enzo Holloway MD #[address] [address] PCP - General Family Medicine 04/27/17 12/27/23 Tariq Goyal MD [address] [place] [address] PCP - General Family Medicine 12/28/23 04/02/24 Enzo Holloway MD #[address] [address] PCP - General Family Medicine 04/03/24 08/30/24 Tariq Goyal MD [address] [place] [address] PCP - General Family Medicine 08/31/24 Kvng Jaeger MD #1 [place] [address] Consulting Physician Neurology 04/12/23 Ela Kim, WORKFORCE ANALYST, FIRE WARDEN #2 [place] [address] Nurse Practitioner Advanced Practice Nurse 03/15/22 Pablo Mora MD #2 [place] [address] Consulting Physician Urology 02/03/24 documented as of this encounter
--- OUTSIDE RECORDS SUMMARY | 2024-11-20 15:57 | XMS_ITS | Encounter Summary ---
Author Organization [facility] Address [address] [place] [address] Phone Care Team Providers Care Digital Court Reporter Name Role Phone Enzo Holloway MD Primary Care Provider Kvng Jaeger MD Unavailable [phone] Ela Kim APRN, SUPERVISOR DRYING AND WINDING Unavailable [phone] Tariq Goyal MD Primary Care Provider Pablo Mora MD Unavailable [phone] Enzo Holloway MD Primary Care Provider [phone] Tariq Goyal MD Primary Care Provider [phone] Reason for Visit * Reason Comments Medication Refill Encounter Details Date Type Department Care Team (Late st Contact Info) Description 07/13/2021 Refill [facility] - Neurology [facility] #2 [place] [address] Ela Kim APRN, SUPERVISOR DRYING AND WINDING #2 [place] [address] Medication Refill Social History Tobacco Use Types [...] COVID-19? No / Unsure 07/14/2021 2:55 PM CONTRACT CLERK AUTOMOBILE documented as of this encounter Plan of Treatment Upcoming Encounters Date Type Department Care Team (Latest Contact Info) Description 12/07/2024 11:00 AM CDT [facility] #2 [place] [address] Kvng Jaeger MD #2 [place] [address] 12/25/2024 1:40 PM CDT [facility] 1 [place] [address] Pablo Mora MD #[address] [address] 12/25/2024 1:40 PM CDT - 12/25/2024 2:40 PM CDT [facility] 1 [place] [address] Pablo Mora MD #[address] [address] CYSTOSCOPY, MEATAL DILATATION 01/11/2025 11:30 AM CDT Office [facility] #2 [place] [address] Pablo Mora MD #2 [facility] [address] [place] [address] Scheduled Procedures Name Priority Associated Diagnoses Date/Ti me CYSTOSCOPY URETHRAL DILATATION GROSS HEMATURIA 12/25/2024 1:40 PM CDT documented as of this encounter Visit Diagnoses Not on filedocumented in this encounter Additional Health Concerns Assessment Noted Time PHQ-9 Depression Total Score: 0 02/04/20 1:00 PM CDT documented as of this encounter Care Teams Digital Court Reporter Relationship Specialty Start Date End Date Enzo Holloway MD #2 [facility] [address] [place] [address] PCP - General Family Medicine 04/27/17 12/27/23 Tariq Goyal MD [address] [place] [address] PCP - General Family Medicine 12/28/23 04/02/24 Enzo Holloway MD #[address] [address] PCP - General Family Medicine 04/03/24 08/30/24 Tariq Goyal MD [address] [place] [address] PCP - General Family Medicine 08/31/24 Kvng Jaeger MD #1 [place] [address] Consulting Physician Neurology 04/12/23 Ela Kim, PIPING ENGINEER, SUPERVISOR DRYING AND WINDING #2 [place] [address] Nurse Practitioner Advanced Practice Nurse 03/15/22 Pablo Mora MD #[address] [address] Consulting Physician Urology 02/03/24 documented as of this encounter
--- OUTSIDE RECORDS SUMMARY | 2024-11-20 15:57 | XMS_ITS | Encounter Summary ---
Author Organization [facility] Address [address] [facility] [place] [address] Phone Care Team Providers Care Otr Flatbed Company Truck Driver Name Role Phone Enzo Holloway MD Primary Care Provider [phone] Kvng Jaeger MD Unavailable [phone] Ela Kim APRN, [facility] Unavailable + [phone] Tariq Goyal MD Primary Care Provider [phone] Pablo Mora MD Unavailable [phone] Enzo Holloway MD Primary Care Provider [phone] Tariq Goyal MD Primary Care Provider [phone] Reason for Visit * Reason Comments Medication Refill Encounter Details Date Type Department Care Team (Late st Contact Info) Description 12/19/2021 [facility]ill [facility] - [place] #2 [place] [address] Danya Lozano Dominga, PAC [address] [place] [address] Medication Refill Social History Tobacco Use Types [...] AM CDT Medication refilled and signed per [facility] chronic medication standing order for pediatric and adult patients. documented in this encounter Plan of Treatment Upcoming Encounters Date Type Department Care Team (Latest Contact Info) Description 12/07/2024 11:00 AM CDT [facility] #2 [place] [address] Kvng Jaeger MD #2 [place] [address] 12/25/2024 1:40 PM CDT [facility] 1 [place] [address] Pablo Mora MD #[address] [address] 12/25/2024 1:40 PM CDT - 12/25/2024 2:40 PM CDT [facility] 1 [place] [address] Pablo Mora MD #[address] [address] CYSTOSCOPY, MEATAL DILATATION 01/11/2025 11:30 AM CDT Office Visit [facility] #2 [place] [address] Pablo Mora MD #2 [facility] [address] [place] [address] Scheduled Procedures Name Priority Associated Diagnoses Date/Ti me CYSTOSCOPY URETHRAL DILATATION GROSS HEMATURIA 12/25/2024 1:40 PM CDT documented as of this encounter Visit Diagnoses Diagnosis Gastroesophageal reflux disease without esophagitis Esophageal reflux documented in this encounter Additional Health Concerns Assessment Noted Time PHQ-9 Depression Total Score: 0 02/04/20 21 1:00 PM CDT documented as of this encounter Care Teams Otr Flatbed Company Truck Driver Relationship Specialty Start Date End Date Enzo Holloway MD #2 [facility] [address] [place] [address] PCP - General Family Medicine 04/27/17 12/27/23 Tariq Goyal MD [address] [place] [address] PCP - General Family Medicine 12/28/23 04/02/24 Enzo Holloway MD #2 [facility] [address] [place] [address] PCP - General Family Medicine 04/03/24 08/30/24 Tariq Goyal MD [address] [place] [address] PCP - General Family Medicine 08/31/24 Kvng Jaeger MD #1 [place] [address] Consulting Physician Neurology 04/12/23 Ela Kim APRN, STABILIZER OPERATOR #2 [place] [address] Nurse Practitioner Advanced Practice Nurse 03/15/22 Pablo Mora MD #2 [facility], [address] [address] Consulting Physician Urology 02/03/24 documented as of this encounter
--- OUTSIDE RECORDS SUMMARY | 2024-11-20 15:57 | XMS_ITS | Encounter Summary ---
Author Organization [facility] Address [address] [place] [address] Phone Care Team Providers Care Buyers' Agent Name Role Phone Enzo Holloway MD Primary Care Provider [phone] Kvng Jaeger MD Unavailable [phone] Ela Kim APRN, SALES AND SERVICE REPRESENTATIVE Unavailable [phone] Tariq Goyal MD Primary Care Provider Pablo Mora MD Unavailable [phone] Enzo Holloway MD Primary Care Provider [phone] Tariq Goyal MD Primary Care Provider [phone] Reason for Visit * Reason Comments Medication Refill Encounter Details Date Type Department Care Team (Late st Contact Info) Description 10/19/2022 Refill [facility] - Neurology [facility] #2 [place] [address] Ela Kim APRN, SALES AND SERVICE REPRESENTATIVE #[address] [place] [address] Medication Refill Social History Tobacco Use Types [...] Dept 07/30/22 Procedure Visit Kvng Jaeger MD [facility] Neurology [facility] [place] 05/04/22 Office Visit Ela Kim APRN, CNS [facility] Neurology [facility] [place] 03/15/22 Office Visit Ela Kim APRN, CNS [facility] 10/22/21 Office Visit Ela Kim APRN, CNS [facility] Neurology [facility] [place] Showing recent visits within past 365 days and meeting all other requirements Future Appointments Date Type Provider Dept 10/21/22 Appointment Ela Kim APRN, CNS [facility] [place] 10/22/22 Appointment Kvng Jaeger MD [facility] Neurology [facility] Showing future appointments within next 90 days and meeting all other requirements documented in this encounter Plan of Treatment Upcoming Encounters Date Type Department Care Team (Latest Contact Info) Description 12/07/2024 11:00 AM CDT Procedure Visit [facility] - Neurology [facility] #2 [place] [address] Kvng Jaeger MD #[address] [place] [address] 12/25/2024 1:40 PM CDT [facility] 1 [place] [address] Pablo Mora MD #[address] [address] 12/25/2024 1:40 PM CDT - 12/25/2024 2:40 PM CDT [facility] 1 [place] [address] Pablo Mora MD #[address] [address] CYSTOSCOPY, MEATAL DILATATION 01/11/2025 11:30 AM CDT Office [facility] UR[facility] #2 [place] [address] Pablo Mora MD #[address] [address] Scheduled Procedures Name Priority Associated Diagnoses Date/Ti me CYSTOSCOPY URETHRAL DILATATION GROSS HEMATURIA 12/25/2024 1:40 PM CDT documented as of this encounter Visit Diagnoses Diagnosis Chronic migraine without aura, not intractable, without status migrainosus documented in this encounter Additional Health Concerns Assessment Noted Time PHQ-9 Depression Total Score: 0 02/04/20 21 1:00 PM CDT documented as of this encounter Care Teams Buyers' Agent Relationship Specialty Start Date End Date Enzo Holloway MD #[address] [address] PCP - General Family Medicine 04/27/17 12/27/23 Tariq Goyal MD [address] [place] [address] PCP - General Family Medicine 12/28/23 04/02/24 Enzo Holloway MD #[address] [address] PCP - General Family Medicine 04/03/24 08/30/24 Tariq Goyal MD [address] [place] [address] PCP - General Family Medicine 08/31/24 Kvng Jaeger MD #[address] [place] [address] Consulting Physician Neurology 04/12/23 Ela Kim, FOOTWEAR PRODUCTION MACHINE OPERATOR, SALES AND SERVICE REPRESENTATIVE #[address] [place] [address] Nurse Practitioner Advanced Practice Nurse 03/15/22 Pablo Mora MD #[address] [address] Consulting Physician Urology 02/03/24 documented as of this encounter
--- OUTSIDE RECORDS SUMMARY | 2024-11-20 15:57 | XMS_ITS | Encounter Summary ---
Author Organization [facility] Address [address] [facility] [place] [address] Phone Care Team Providers Care Collection Advisor Name Role Phone Enzo Holloway MD Primary Care Provider [phone] Kvng Jaeger MD Unavailable [phone] Ela Kim APRN, [facility] Unavailable + [phone] Tariq Goyal MD Primary Care Provider [phone] Pablo Mora MD Unavailable [phone] Enzo Holloway MD Primary Care Provider [phone] Tariq Goyal MD Primary Care Provider [phone] Reason for Visit * Reason Comments Medication Refill Encounter Details Date Type Department Care Team (Late st Contact Info) Description 06/01/2022 Refill [facility] - [place] #2 [place] [address] Danya Lozano Dominga, PAC [address] [place] [address] Medication Refill Social History Tobacco Use Types [...] Coronavirus/COVID-19? No / Unsure 05/04/2022 10:32 AM INVENTORY COORDINATOR documented as of this encounter Miscellaneous Notes * Telephone Encounter - Vicky Coleman - 06/03/2022 1:30 PM CST Apt scheduled NTORY COORDINATOR * Telephone Encounter - Alissa Sancehz APRN, CNP - 06/02/2022 12:38 PM CST Needs appointment. Last office visit was in 04/2021 NTORY COORDINATOR * Telephone Encounter - Veronika [place] [...] 04/28/21 Next Office Visit with GI: n/a NTORY COORDINATOR documented in this encounter Plan of Treatment Upcoming Encounters Date Type Department Care Team (Latest Contact Info) Description 12/07/2024 11:00 AM CDT Procedure Visit [facility] - Neurology [facility] #2 [place] [address] Kvng Jaeger MD #2 [place] [address] 12/25/2024 1:40 PM CDT [facility] 1 [place] [address] Pablo Mora MD #2 [facility] [address] [place] [address] 12/25/2024 1:40 PM CDT - 12/25/2024 2:40 PM CDT [facility] 1 [place] [address] Pablo Mora MD #[address] [address] CYSTOSCOPY, MEATAL DILATATION 01/11/2025 11:30 AM CDT Office Visit [facility] #2 [place] [address] Pablo Mora MD #[address] [address] Scheduled Procedures Name Priority Associated Diagnoses Date/Ti tx CYSTOSCOPY URETHRAL DILATATION GROSS HEMATURIA 12/25/2024 1:40 PM CDT documented as of this encounter Visit Diagnoses Diagnosis Gastroesophageal reflux disease without esophagitis Esophageal reflux documented in this encounter Additional Health Concerns Assessment Noted Time PHQ-9 Depression Total Score: 0 02/04/20 21 1:00 PM CDT documented as of this encounter Care Teams Collection Advisor Relationship Specialty Start Date End Date Enzo Holloway MD #2 [facility] [address] [place] [address] PCP - General Family Medicine 04/27/17 12/27/23 Tariq Goyal MD [address] [place] [address] PCP - General Family Medicine 12/28/23 04/02/24 Enzo Holloway MD #[address] [address] PCP - General Family Medicine 04/03/24 08/30/24 Tariq Goyal MD [address] [place] [address] PCP - General Family Medicine 08/31/24 Kvng Jaeger MD #1 [place] [address] Consulting Physician Neurology 04/12/23 Ela Kim, BPM ANALYST, WIRELESS TECHNICIAN #2 [place] [address] Nurse Practitioner Advanced Practice Nurse 03/15/22 Pablo Mora MD #[address] [address] Consulting Physician Urology 02/03/24 documented as of this encounter
[2024-11-20 16:21] LABS: Basophils Absolute Auto 0.12 K/mm3 (0.00-0.10); Basophils Percent Auto 1.2 % (0.0-1.0); Eosinophils Absolute Auto 0.35 K/mm3 (0.02-0.50); Eosinophils Percent Auto 3.4 % (1.0-6.0); Hematocrit 43.9 % (40.0-54.0); Hemoglobin 15.1 g/dL (14.0-18.0); Immature Granulocyte Absolute 0.03 K/mm3 (0.00-0.00); Immature Granulocyte Percent A 0.3 % (0.0-0.0); Lymphocytes Absolute Auto 3.08 K/mm3 (1.10-4.50); Lymphocytes Percent Auto 30.2 % (18.0-42.0); Mean Corpuscular HGB Conc 34.4 g/dL (32-36); Mean Corpuscular Hemoglobin 32.3 pg (27.0-31.0); Monocytes Absolute Auto 0.83 K/mm3 (0.10-0.90); Monocytes Percent Auto 8.1 % (2.0-11.0); Neutrophils Percent Auto 56.8 % (50.0-70.0); Platelet Count Result 309 K/mm3 (150-420); Red Blood Count 4.67 M/mm3 (4.70-6.10); Red Cell Distribution Width 12.9 % (11.6-14.4); White Blood Count 10.2 K/mm3 (4.8-10.8)
[2024-11-20 17:26] LABS: Alanine Aminotransferase 44 U/L (6-50); Albumin Level 4.3 g/dL (3.5-5.1); Alkaline Phosphatase 88 U/L (38-126); Anion Gap 9 mmol/L (4-12); Aspartate Amino Transferase 39 U/L (17-59); Bilirubin,Total 0.6 mg/dL (0.2-1.3); Blood Urea Nitrogen 10 mg/dL (9-20); CRP 0.8 mg/dL (<1.0); Calcium 9.4 mg/dL (8.4-10.2); Carbon Dioxide 22 mmol/L (22-30); Chloride 105 mmol/L (98-107); Estimated Glomerular Filt Rate > 60; Glucose 182 mg/dL (65-110); Osmolality Calculated 286 mOsm/kg (285-295); Potassium 3.4 mmol/L (3.4-5.0); Sodium 136 mmol/L (137-145); Total Protein 7.2 g/dL (6.3-8.2)
== END 2024-11-20 15:55 | disposition home or self-care (01) ==
LOC: CHSLAB 15:55
PROVIDERS: PCP Family Medicine; Visit Provider Family Medicine
DX: N10 Acute pyelonephritis (principal); I10 Essential (primary) hypertension; R78.81 Bacteremia; R35.0 Frequency of micturition; R05.9 Cough, unspecified
CPT/HCPCS: 36415; 80053; 85025; 86140; 87040; 87086

== ENCOUNTER 2024-12-05 18:31 | Outpatient (CLI) | payer OTHER, SELFPAY ==
--- OUTSIDE RECORDS SUMMARY | 2024-12-05 18:35 | XMS_ITS | Encounter Summary ---
Author Organization [facility] Address [address] [place] [address] Phone Care Team Providers Care Agate Setter Name Role Phone Enzo Holloway MD Primary Care Provider [phone] Kvng Jaeger MD Unavailable [phone] Ela Kim APRN, MARKETING DEVELOPMENT SPECIALIST Unavailable [phone] Tariq Goyal MD Primary Care Provider Pablo Mora MD Unavailable [phone] Enzo Holloway MD Primary Care Provider [phone] Tariq Goyal MD Primary Care Provider [phone] Reason for Visit * Reason Comments Medication Refill Encounter Details Date Type Department Care Team (Late st Contact Info) Description 05/12/2022 Refill [facility] - Neu[facility] #2 [place] [address] Ela Kim APRN, MARKETING DEVELOPMENT SPECIALIST #2 [place] [address] Medication Refill Social History Tobacco Use Types Packs/Day Years Used Date Smoking Tobacco: Every Day Cigarettes 0.3 32.7 Started: 04/01/1992 Smokeless Tobacco: Never Comments:2 per [...] Coronavirus/COVID-19? No / Unsure 05/04/2022 10:32 AM FEDERAL JUDGE documented as of this encounter Plan of Treatment Upcoming Encounters Date Type Department Care Team (Latest Contact Info) Description 12/07/2024 11:00 AM CDT [facility] #2 [place] [address] Kvng Jaeger MD #2 [place] [address] 12/25/2024 1:40 PM CDT [facility] 1 [place] [address] Pablo Mora MD #[address] [address] 12/25/2024 1:40 PM CDT - 12/25/2024 2:40 PM CDT [facility] 1 [place] [address] Pablo Mora MD #[address] [address] CYSTOSCOPY, MEATAL DILATATION 01/11/2025 11:30 AM CDT Office Visit [facility] #2 [place] [address] Pablo Mora MD #2 [facility] [address] [place] [address] Scheduled Procedures Name Priority Associated Diagnoses Date/Ti me CYSTOSCOPY URETHRAL DILATATION GROSS HEMATURIA 12/25/2024 1:40 PM CDT documented as of this encounter Visit Diagnoses Diagnosis Chronic migraine without aura, not intractable, without status migrainosus documented in this encounter Additional Health Concerns Assessment Noted Time PHQ-9 Depression Total Score: 0 02/04/20 21 1:00 PM CDT documented as of this encounter Care Teams Agate Setter Relationship Specialty Start Date End Date Enzo Holloway MD #[address] [address] PCP - General Family Medicine 04/27/17 12/27/23 Tariq Goyal MD [address] [place] [address] PCP - General Family Medicine 12/28/23 04/02/24 Enzo Holloway MD #[address] [address] PCP - General Family Medicine 04/03/24 08/30/24 Tariq Goyal MD [address] [place] [address] PCP - General Family Medicine 08/31/24 Kvng Jaeger MD #1 [place] [address] Consulting Physician Neurology 04/12/23 Ela Kim, CODING MACHINE OPERATOR, MARKETING DEVELOPMENT SPECIALIST #2 [place] [address] Nurse Practitioner Advanced Practice Nurse 03/15/22 Pablo Mora MD #2 [facility], [address] [address] Consulting Physician Urology 02/03/24 documented as of this encounter
--- OUTSIDE RECORDS SUMMARY | 2024-12-05 18:35 | XMS_ITS | Encounter Summary ---
Author Organization [facility] Address [address] [place] [address] Phone Care Team Providers Care Operational Trainer Name Role Phone Kvng Jaeger MD Unavailable [phone] Ela Kim APRN, [facility] Unavailable [phone] Pablo Mora MD Unavailable [phone] Tariq Goyal MD Primary Care Provider Encounter Details Date Type Department Care Team (Late st Contact Info) Description 11/13/2024 [facility]phone [facility] #2 [place] [address] Pablo Mora MD #[address] [address] Social History Tobacco Use Types Packs/Day Years Used Date Smoking Tobacco: Every Day Cigarettes 0.3 32.7 Started: 04/01/1992 Smokeless Tobacco: Never Comments:2 cigarettes per da y Alcohol Use Standard Drinks/Week Comments Yes 0 (1 standard drink = 0.6 oz pur e alcohol) occasional [facility] Utilities Answer Date Recorded In the past 12 months has e electric, gas, oil, or water company threatened to shut off services in your home? Patient declined 04/23/2024 Social Connection and Isolation Panel Answer Date Recorded In a typical week, how many times do you talk on the phone with family, friends, or neighbors? Patient declined 04/23/2024 How often do you get togethe r with friends or relatives? Patient declined 04/23/2024 How often do you attend holiness or quaker serv ices? Patient declined 04/23/2024 Do you belong to any clubs o r organizations such as holiness groups, unions, fraternal or athletic groups, or [...] Total Score - Questions 1-9 0 01/[address] [facility] - Occupational Stress Questionnaire Answer Date Recorded [...] encounter Miscellaneous Notes * Telephone Encounter - Marta Bliss RN - 12/04/2024 11:08 AM CDT Pt's blood thinner clearance faxed to Dr. Mattson's office at [phone]. * Telephone Encounter - Marta Bliss RN - 11/13/2024 9:57 AM CDT Cystoscopy and meatal dilation [address] rescheduled for 12/25/2024. documented in this encounter Plan of Treatment Upcoming Encounters Date Type Department Care Team (Latest Contact Info) Description 12/07/2024 11:00 AM CDT Procedure Visit [facility] - Neurology - [place] #2 [place] [address] Kvng Jaeger MD #2 [place] [address] 12/25/2024 1:40 PM CDT [facility] 1 [place] [address] Pablo Mora MD #[address] [address] 12/25/2024 1:40 PM CDT - 12/25/2024 2:40 PM CDT Surgery [facility] 1 [place] [address] Pablo Mora MD #[address] [address] CYSTOSCOPY, MEATAL DILATATION 01/11/2025 11:30 AM CDT Office Visit [facility] #2 [place] [address] Pablo Mora MD #[address] [address] Scheduled Procedures Name Priority Associated Diagnoses Date/Ti me CYSTOSCOPY URETHRAL DILATATION GROSS HEMATURIA 12/25/2024 1:40 PM CDT documented as of this encounter Visit Diagnoses Not on filedocumented in this encounter Additional Health Concerns Assessment Noted Time PHQ-9 Depression Total Score: 0 02/04/20 21 1:00 PM CDT documented as of this encounter Care Teams Operational Trainer Relationship Specialty Start Date End Date Tariq Goyal MD [address] [place] [address] PCP - General Family Medicine 08/31/24 Kvng Jaeger MD #1 [place] [address] Consulting Physician Neurology 04/12/23 Ela Kim, CRYPTOLOGIST, ACCOUNTING PROFESSOR #2 [place] [address] Nurse Practitioner Advanced Practice Nurse 03/15/22 Pablo Mora MD #[address] [address] Consulting Physician Urology 02/03/24 documented as of this encounter
--- OUTSIDE RECORDS SUMMARY | 2024-12-05 18:35 | XMS_ITS | Encounter Summary ---
Author Organization [facility] Address [address] [facility] [place] [address] Phone Care Team Providers Care Workers Compensation Adjuster Name Role Phone Enzo Holloway MD Primary Care Provider [phone] Kvng Jaeger MD Unavailable [phone] Ela Kim APRN, [facility] Unavailable + [phone] Tariq oGyal MD Primary Care Provider [phone] Pablo Mora MD Unavailable [phone] Enzo Holloway MD Primary Care Provider [phone] Tariq Goyal MD Primary Care Provider [phone] Reason for Visit * Reason Comments Medication Refill Encounter Details Date Type Department Care Team (Late st Contact Info) Description 06/01/2022 [facility]ill [facility] [place] #2 [place] [address] Danya Lozano Dominga, PAC [address] [place] [address] Medication Refill Social History Tobacco Use Types [...] Coronavirus/COVID-19? No / Unsure 05/04/2022 10:32 AM REINFORCING ROD LAYER documented as of this encounter Miscellaneous Notes * Telephone Encounter - Vicky Coleman - 06/03/2022 1:30 PM CST Apt scheduled FORCING ROD LAYER * Telephone Encounter - Alissa Sanchez APRN, CNP - 06/02/2022 12:38 PM CST Needs appointment. Last office visit was in 04/2021 FORCING ROD LAYER * Telephone Encounter - Veronika Butterfield RN [...] 04/28/21 Next Office Visit with GI: n/a FORCING ROD LAYER documented in this encounter Plan of Treatment Upcoming Encounters Date Type Department Care Team (Latest Contact Info) Description 12/07/2024 11:00 AM CDT Procedure Visit [facility] - Neurology [facility] #2 [place] [address] Kvng Jaeger MD #2 [place] [address] 12/25/2024 1:40 PM CDT [facility] 1 [place] [address] Pablo Mora MD #2 [facility] [address] [place] [address] 12/25/2024 1:40 PM CDT - 12/25/2024 2:40 PM CDT [facility] 1 [place] [address] Pablo Mora MD #[address] [address] CYSTOSCOPY, MEATAL DILATATION 01/11/2025 11:30 AM CDT Office Visit [facility]Y #2 [place] [address] Pablo Mora MD #[address] [address] Scheduled Procedures Name Priority Associated Diagnoses Date/Ti wa CYSTOSCOPY URETHRAL DILATATION GROSS HEMATURIA 12/25/2024 1:40 PM CDT documented as of this encounter Visit Diagnoses Diagnosis Gastroesophageal reflux disease without esophagitis Esophageal reflux documented in this encounter Additional Health Concerns Assessment Noted Time PHQ-9 Depression Total Score: 0 02/04/20 21 1:00 PM CDT documented as of this encounter Care Teams Workers Compensation Adjuster Relationship Specialty Start Date End Date Enzo Holloway MD #2 [facility] [address] [place] [address] PCP - General Family Medicine 04/27/17 12/27/23 Tariq Goyal MD [address] [place] [address] PCP - General Family Medicine 12/28/23 04/02/24 Enzo Holloway MD #[address] [address] PCP - General Family Medicine 04/03/24 08/30/24 Tariq Goyal MD [address] [place] [address] PCP - General Family Medicine 08/31/24 Kvng Jaeger MD #1 [place] [address] Consulting Physician Neurology 04/12/23 Ela Kim, MANIFEST CLERK, PROFESSOR OF BUSINESS #2 [place] [address] Nurse Practitioner Advanced Practice Nurse 03/15/22 Pablo Mora MD #[address] [address] Consulting Physician Urology 02/03/24 documented as of this encounter
--- OUTSIDE RECORDS SUMMARY | 2024-12-05 18:35 | XMS_ITS | Encounter Summary ---
Author Organization [facility] Address [address] [place] [address] Phone Care Team Providers Care Utility Teller Name Role Phone Enzo Holloway MD Primary Care Provider [phone] Kvng Jaeger MD Unavailable [phone] Ela Kim APRN, HOUSE PRINCIPAL Unavailable [phone] Tariq Goyal MD Primary Care Provider [phone] Pablo Mora MD Unavailable [phone] Enzo Holloway MD Primary Care Provider [phone] Tariq Goyal MD Primary Care Provider [phone] Reason for Visit * Reason Comments Medication Refill Encounter Details Date Type Department Care Team (Late st Contact Info) Description 12/19/2021 Refill [facility] - Neurology [facility] #2 [place] [address] Ela Kim APRN, HOUSE PRINCIPAL #2 [place] [address] Medication Refill Social History Tobacco Use Types Packs/Day Years Used Date Smoking Tobacco: Every Day Cigarettes 0.3 32.7 Started: 04/01/1992 Smokeless Tobacco: Never Comments:1-2 per [...] Description 12/07/2024 11:00 AM CDT [facility] [place] #2 [place] [address] Kvng Jaeger MD #2 [place] [address] 12/25/2024 1:40 PM CDT [facility] 1 [place] [address] Pablo Mora MD #[address] [address] 12/25/2024 1:40 PM CDT - 12/25/2024 2:40 PM CDT [facility] 1 [place] [address] Pablo Mora MD #[address] [address] CYSTOSCOPY, MEATAL DILATATION 01/11/2025 11:30 AM CDT Office Visit [facility]Y #2 [place] [address] Pablo Mora MD #[address] [address] Scheduled Procedures Name Priority Associated Diagnoses Date/Ti me CYSTOSCOPY URETHRAL DILATATION GROSS HEMATURIA 12/25/2024 1:40 PM CDT documented as of this encounter Visit Diagnoses Not on filedocumented in this encounter Additional Health Concerns Assessment Noted Time PHQ-9 Depression Total Score: 0 02/04/20 21 1:00 PM CDT documented as of this encounter Care Teams Utility Teller Relationship Specialty Start Date End Date Enzo Holloway MD #[address] [address] PCP - General Family Medicine 04/27/17 12/27/23 Tariq Goyal MD [address] [place] [address] PCP - General Family Medicine 12/28/23 04/02/24 Enzo Holloway MD #[address] [address] PCP - General Family Medicine 04/03/24 08/30/24 Tariq Goyal MD [address] [place] [address] PCP - General Family Medicine 08/31/24 Kvng Jaeger MD #1 [place] [address] Consulting Physician Neurology 04/12/23 Ela Kim APRN, HOUSE PRINCIPAL #2 [place] [address] Nurse Practitioner Advanced Practice Nurse 03/15/22 Pablo Mora MD #2 [facility] [address] [place] [address] Consulting Physician Urology 02/03/24 documented as of this encounter
--- OUTSIDE RECORDS SUMMARY | 2024-12-05 18:35 | XMS_ITS | Encounter Summary ---
Author Organization [facility] Address [address] [place] [address] Phone Care Team Providers Care Biological Inspector Name Role Phone Enzo Holloway MD Primary Care Provider [phone] Kvng Jaeger MD Unavailable [phone] Ela Kim APRN, FIRE DEPARTMENT MARINE ENGINEER Unavailable [phone] Tariq Goyal MD Primary Care Provider Pablo Mora MD Unavailable [phone] Enzo Holloway MD Primary Care Provider [phone] Tariq Goyal MD Primary Care Provider [phone] Reason for Visit * Reason Comments Medication Refill Encounter Details Date Type Department Care Team (Late st Contact Info) Description 10/19/2022 Refill [facility] - [facility]rology [facility] #2 [place] [address] Ela Kim APRN, FIRE DEPARTMENT MARINE ENGINEER #2 [place] [address] Medication Refill Social History Tobacco Use Types [...] Dept 07/30/22 Procedure Visit Kvng Jaeger MD [facility] Neurology [facility] [place] 05/04/22 Office Visit Ela Kim APRN, CNS [facility] Neurology [facility] [place] 03/15/22 Office Visit Ela Kim APRN, CNS [facility] 10/22/21 Office Visit Ela Kim APRN, CNS [facility] Neurology [facility] [place] Showing recent visits within past 365 days and meeting all other requirements Future Appointments Date Type Provider Dept 10/21/22 Appointment Ela Kim APRN, CNS [facility] [place] 10/22/22 Appointment Kvng Jaeger MD [facility] Neurology [facility] Showing future appointments within next 90 days and meeting all other requirements documented in this encounter Plan of Treatment Upcoming Encounters Date Type Department Care Team (Latest Contact Info) Description 12/07/2024 11:00 AM CDT Procedure Visit [facility] - Neurology [facility] #2 [place] [address] Kvng Jaeger MD #2 [place] [address] 12/25/2024 1:40 PM CDT [facility] 1 [place] [address] Pablo Mora MD #[address] [address] 12/25/2024 1:40 PM CDT - 12/25/2024 2:40 PM CDT [facility] 1 [place] [address] Pablo Mora MD #[address] [address] CYSTOSCOPY, MEATAL DILATATION 01/11/2025 11:30 AM CDT Office Visit [facility] UROLOGY #2 [place] [address] Pablo Mora MD #[address] [address] Scheduled Procedures Name Priority Associated Diagnoses Date/Ti me CYSTOSCOPY URETHRAL DILATATION GROSS HEMATURIA 12/25/2024 1:40 PM CDT documented as of this encounter Visit Diagnoses Diagnosis Chronic migraine without aura, not intractable, without status migrainosus documented in this encounter Additional Health Concerns Assessment Noted Time PHQ-9 Depression Total Score: 0 02/04/20 21 1:00 PM CDT documented as of this encounter Care Teams Biological Inspector Relationship Specialty Start Date End Date Enzo Holloway MD #[address] [address] PCP - General Family Medicine 04/27/17 12/27/23 Tariq Goyal MD [address] [place] [address] PCP - General Family Medicine 12/28/23 04/02/24 Enzo Holloway MD #[address] [address] PCP - General Family Medicine 04/03/24 08/30/24 Tariq Goyal MD [address] [place] [address] PCP - General Family Medicine 08/31/24 Kvng Jaeger MD #1 [place] [address] Consulting Physician Neurology 04/12/23 Ela Kim, WELL FLOW OPERATOR, FIRE DEPARTMENT MARINE ENGINEER #2 [place] [address] Nurse Practitioner Advanced Practice Nurse 03/15/22 Pablo Mora MD #[address] [address] Consulting Physician Urology 02/03/24 documented as of this encounter
--- OUTSIDE RECORDS SUMMARY | 2024-12-05 18:35 | XMS_ITS | Encounter Summary ---
Author Organization [facility] Address [address] [facility] [place] [address] Phone Care Team Providers Care Interstate Bus Driver Name Role Phone Enzo Holloway MD Primary Care Provider Kvng Jaeger MD Unavailable [phone] Ela Kim APRN, [facility] Unavailable + [phone] Tariq Goyal MD Primary Care Provider [phone] Pablo Mora MD Unavailable [phone] Enzo Holloway MD Primary Care Provider [phone] Tariq Goyal MD Primary Care Provider [phone] Reason for Visit * Reason Comments Medication Refill Encounter Details Date Type Department Care Team (Late st Contact Info) Description 04/29/2021 Refill [facility] - [place] #2 [place] [address] Danya Lozano Dominga, PAC [address] [place] [address] Medication Refill Social History Tobacco Use Types Packs/Day Years Used Date Smoking Tobacco: Every Day Cigarettes 0.3 32.7 Started: 04/01/1992 Smokeless Tobacco: Never Comments:3 per [...] Valerie Joyce RN - 05/04/2021 12:34 PM ATTENDANT SALES Medication refilled and signed per [facility] standing order for pediatric and adult patients. NDANT SALES * Telephone Encounter - Valerie Joyce RN - 05/04/2021 12:28 PM ATTENDANT SALES Pharmacy requesting refill of: Requested Prescriptions Pending Prescriptions Disp Refills ??? omeprazole (PriLOSEC) 20 MG CAPSULE DELAYED RELEASE [Pharmacy Med Name: OMEPRAZOLE 20MG CPDR] 180 Capsule 1 Sig: TAKE ONE CAPSULE BY MOUTH TWICE A DAY Last fill: 05/15/2020 for 180 caps and 1 refill Patients last OV with GI: 05/15/2020 Next Office Visit with GI: 05/18/2021 NDANT SALES documented in this encounter Plan of Treatment Upcoming Encounters Date Type Department Care Team (Latest Contact Info) Description 12/07/2024 11:00 AM CDT [facility] #2 [place] [address] Kvng Jaeger MD #2 [place] [address] 12/25/2024 1:40 PM CDT [facility] 1 [place] [address] Pablo [facility] MD [facility] [address] [address] 12/25/2024 1:40 PM CDT - 12/25/2024 2:40 PM CDT [facility] 1 [place] [address] Pablo Mora MD #[address] [address] CYSTOSCOPY, MEATAL DILATATION 01/11/2025 11:30 AM CDT Office Visit [facility] #2 [place] [address] Pablo Mora MD #[address] [address] Scheduled Procedures Name Priority Associated Diagnoses Date/Ti me CYSTOSCOPY URETHRAL DILATATION GROSS HEMATURIA 12/25/2024 1:40 PM CDT documented as of this encounter Visit Diagnoses Diagnosis Gastroesophageal reflux disease without esophagitis Esophageal reflux documented in this encounter Additional Health Concerns Assessment Noted Time PHQ-9 Depression Total Score: 0 02/04/20 21 1:00 PM CDT documented as of this encounter Care Teams Interstate Bus Driver Relationship Specialty Start Date End Date Enzo Holloway MD #2 [facility] [address] [place] [address] PCP - General Family Medicine 04/27/17 12/27/23 Tariq Goyal MD [address] [place] [address] PCP - General Family Medicine 12/28/23 04/02/24 Enzo Holloway MD #[address] [address] PCP - General Family Medicine 04/03/24 08/30/24 Tariq Goyal MD [address] [place] [address] PCP - General Family Medicine 08/31/24 Kvng Jaeger MD #1 [place] [address] Consulting Physician Neurology 04/12/23 Ela Kim APRN, DISTRIBUTION LINEMAN #2 [place] [address] Nurse Practitioner Advanced Practice Nurse 03/15/22 Pablo Mora MD #[address] [address] Consulting Physician Urology 02/03/24 documented as of this encounter
--- OUTSIDE RECORDS SUMMARY | 2024-12-05 18:35 | XMS_ITS | Clinical Summary ---
Author Organization [facility] Address #1 [place] [address] Phone Care Team Providers Care Deckhand Clam Dredge Name Role Phone Kvng Jaeger MD Unavailable [phone] Ela Kim APRN, ANVIL WORKER Unavailable [phone] Pablo Mora MD Unavailable [phone] Tariq Goyal MD Primary Care Provider [phone] Allergies Active Allergy Reactions Criticality Noted Date [...] [facility] [place] [address] Pablo Mora MD 10/22/2024 Telephone [facility] #[address] [place] [address] Pablo Mora MD 10/22/2024 Travel 09/21/2024 Refill [facility] - [facility] #[address] [place] [address] Ela Kim APRN, ANVIL WORKER Medication Refill 09/19/2024 Telephone [facility] UR[facility]Y #[address] [place] [address] Pablo Mora MD 09/07/2024 1:00 PM CDT Procedure Visit [facility] UR[facility]Y #[address] [place] [address] Pablo Mora MD Gross hematuria (Primary Dx) Discharge Disposition: Discharged to home or Selfcare 09/07/2024 Travel from Last 3 Months Immunizations Immunization Administration Dates Next Due Covid-19, Mrna, Lnp-s, Pf, 3 0 Mcg/0.3 Ml Dose ([place]) 09/20/2020,08/30/2020 DTP Vaccine 10/13/1988, 5,04/02/1984,1983,02/02/1984 Influenza Vaccine [...] 0.3 32.7 Started: 04/01/1992 Smokeless Tobacco: Never Tobacco Cessation:Ready to Q uit: Not Asked; Counseling Given: Not Answered Comments:2 cigarettes per day Alcohol Use Standard Drinks/Week Comments Yes 0 (1 standard drink = 0.6 oz pur e alcohol) occasional [employer] Utilities Answer Date Recorded In the past 12 months has e [employer], gas, oil, or water [employer] threatened to shut off services in your home? Patient declined 04/23/2024 Social Connection and Isolation Panel Answer Date Recorded In a typical week, how many times do you talk on the phone with family, friends, or neighbors? Patient declined 04/23/2024 How often do you get togethe r with friends or relatives? Patient declined 04/23/2024 How often do you attend yarsani or anabaptism serv ices? Patient declined 04/23/2024 Do you belong to any clubs o r organizations such as yarsani groups, unions, fraternal or athletic groups, or [...] Score - Questions 1-9 0 01/25 [facility] - Occupational Stress Questionnaire Answer Date Recorded [...] any time in the past 12 m [facility], were you homeless or living in a care home (including now)? Patient declined 04/23/2024 Education Answer [...] 36.5 C (97.7 F) 05/01/2024 10:25 AM DIGITAL MARKETING APPRENTICE Respiratory Rate 12 09/07/2024 12:56 PM CDT [...] Visit [facility] #2 [place] [address] Kvng Jaeger MD #2 [place] [address] 12/25/2024 1:40 PM CDT [facility] [address] [place] [address] Pablo Mora MD #[address] [address] 12/25/2024 1:40 PM CDT - 12/25/2024 2:40 PM CDT [facility] 1 [facility] [place] [address] Pablo Mora MD #[address] [address] CYSTOSCOPY, MEATAL DILATATION 01/11/2025 11:30 AM CDT Office Visit [facility] #2 [place] [address] Pablo Mora MD #2 [facility] [address] Scheduled Procedures Name Priority Associated Diagnoses Date/Ti me CYSTOSCOPY URETHRAL DILATATION GROSS HEMATURIA 12/25/2024 1:40 PM CDT Health Maintenance Due Date Last Done Comments Hepatitis C Virus (HCV) Screening 1983 Human Papillomavirus (HPV) Immunization (1 - Male 3-dose series) 11/15/1998 Hepatitis B Immunization (1 of 3 - [...] Routine 09/07/2024 12:57 PM CDT Gross hematuria from Last 3 Months Results * CULTURE, URINE (09/07/2024 1:37 PM CDT) CULTURE RESULTS No growth final 09/08/2024 9:44 PM CDT [facility] Culture URINE SPECIMEN OBTAINED BY CLEAN CATCH PROCEDURE / Unknown Non-Phlebotomy Collection / Unknown 09/07/2024 1:37 PM CDT 09/07/2024 1:37 PM CDT us Pablo Agustin MD MICROBIOLOGY - GENERAL ORDERAB LES Final Result [facility] [address] [facility] [place] [phone], * POCT UA AUTOMATED W/O MICRO (09/07/2024 [...] POINT OF CARE TESTING (MANUAL) Final Result from Last 3 Months Insurance [place] TPL Advance Directives * Full Code (Latest Code Status on File) Date Activated Date Inactivated Comments 04/23/2024 9:06 PM CPR-Full Trinh tment: FULL ARREST: Attempt Resuscitation/CPR wit intubation and mechanical ventilation. PRE-ARREST: Use entire range of life support measures to stabilize the patient. Care Teams Deckhand Clam Dredge Relationship Specialty Start Date End Date Tariq Goyal MD [address] [place] [address] PCP - General Family Medicine 08/31/24 Kvng Jaeger MD #1 [place] [address] Consulting Physician Neurology 04/12/23 Ela Kim, OUTER DIAMETER TECHNICIAN, ANVIL WORKER #2 [place] [address] Nurse Practitioner Advanced Practice Nurse 03/15/22 Pablo Mora MD #[address] [address] Consulting Physician Urology 02/03/24
--- OUTSIDE RECORDS SUMMARY | 2024-12-05 18:35 | XMS_ITS | Encounter Summary ---
Author Organization [facility] Address [address] [place] [address] Phone Care Team Providers Care Sleeve Bottom Feller Name Role Phone Enzo Holloway MD Primary Care Provider Kvng Jaeger MD Unavailable [phone] Ela Kim APRN, METER SHOP SUPERVISOR Unavailable [phone] Tariq Goyal MD Primary Care Provider Pablo Mora MD Unavailable [phone] Enzo Holloway MD Primary Care Provider [phone] Tariq Goyal MD Primary Care Provider [phone] Reason for Visit * Reason Comments Medication Refill Encounter Details Date Type Department Care Team (Late st Contact Info) Description 07/13/2021 Refill [facility] - Neurology [facility] #2 [place] [phone] Ela Kim APRN, METER SHOP SUPERVISOR #2 [place] [address] Medication Refill Social History Tobacco Use Types [...] COVID-19? No / Unsure 07/14/2021 2:55 PM DIRECTOR EMERGENCY DEPARTMENT documented as of this encounter Plan of Treatment Upcoming Encounters Date Type Department Care Team (Latest Contact Info) Description 12/07/2024 11:00 AM CDT [facility] #2 [place] [address] Kvng Jaeger MD #2 [place] [address] 12/25/2024 1:40 PM CDT [facility] 1 [place] [address] Pablo Mora MD #[address] [address] 12/25/2024 1:40 PM CDT - 12/25/2024 2:40 PM CDT [facility] 1 [place] [address] Pablo Mora MD #[address] [address] CYSTOSCOPY, MEATAL DILATATION 01/11/2025 11:30 AM CDT Office Visit [facility] #2 [place] [address] Pablo Mora MD #2 [facility] [address] [place] [address] Scheduled Procedures Name Priority Associated Diagnoses Date/Ti me CYSTOSCOPY URETHRAL DILATATION GROSS HEMATURIA 12/25/2024 1:40 PM CDT documented as of this encounter Visit Diagnoses Not on filedocumented in this encounter Additional Health Concerns Assessment Noted Time PHQ-9 Depression Total Score: 0 02/04/20 1:00 PM CDT documented as of this encounter Care Teams Sleeve Bottom Feller Relationship Specialty Start Date End Date Enzo Holloway MD #2 [facility] [address] [place] [address] PCP - General Family Medicine 04/27/17 12/27/23 Tariq Goyal MD [address] [place] [address] PCP - General Family Medicine 12/28/23 04/02/24 Enzo Holloway MD #[address] [address] PCP - General Family Medicine 04/03/24 08/30/24 Tariq Goyal MD [address] [place] [address] PCP - General Family Medicine 08/31/24 Kvng Jaeger MD #1 [place] [address] Consulting Physician Neurology 04/12/23 Ela Kim, ROTARY VENEER MACHINE OPERATOR, METER SHOP SUPERVISOR #2 [place] [address] Nurse Practitioner Advanced Practice Nurse 03/15/22 Pablo Mora MD #[address] [address] Consulting Physician Urology 02/03/24 documented as of this encounter
--- OUTSIDE RECORDS SUMMARY | 2024-12-05 18:35 | XMS_ITS | Encounter Summary ---
Author Organization [facility] Address [address] [place] [address] Phone Care Team Providers Care Cane Feeder Name Role Phone Enzo Holloway MD Primary Care Provider Kvng Jaeger MD Unavailable [phone] Ela Kim APRN, YARD CONDUCTOR Unavailable [phone] Tariq Goyal MD Primary Care Provider [phone] Pablo Mora MD Unavailable [phone] Enzo Holloway MD Primary Care Provider [phone] Tariq Goyal MD Primary Care Provider [phone] Reason for Visit * Reason Comments Medication Refill Encounter Details Date Type Department Care Team (Late st Contact Info) Description 03/05/2022 Refill [facility] - Neurology [facility] #2 [place] [id number] Ela Kim APRN, YARD CONDUCTOR #2 [place] [address] Medication Refill Social History Tobacco Use Types [...] 11:00 AM CDT Procedure Visit [facility] - Neurology [facility] #2 [place] [address] Kvng Jaeger MD #2 [place] [address] 12/25/2024 1:40 PM CDT [facility] [address] [place] [address] Pablo Mora MD #[address] [address] 12/25/2024 1:40 PM CDT - 12/25/2024 2:40 PM CDT [facility] 1 [place] [address] Pablo Mora MD #[address] [address] CYSTOSCOPY, MEATAL DILATATION 01/11/2025 11:30 AM CDT Office Visit [facility] #2 [place] [address] Pablo Mora MD #2 [facility] [address] [place] [address] Scheduled Procedures Name Priority Associated Diagnoses Date/Ti me CYSTOSCOPY URETHRAL DILATATION GROSS HEMATURIA 12/25/2024 1:40 PM CDT documented as of this encounter Visit Diagnoses Not on filedocumented in this encounter Additional Health Concerns Assessment Noted Time PHQ-9 Depression Total Score: 0 02/04/20 21 1:00 PM CDT documented as of this encounter Care Teams Cane Feeder Relationship Specialty Start Date End Date Enzo Holloway MD #[address] [address] PCP - General Family Medicine 04/27/17 12/27/23 Tariq Goyal MD [address] [place] [address] PCP - General Family Medicine 12/28/23 04/02/24 Enzo Holloway MD #[address] [address] PCP - General Family Medicine 04/03/24 08/30/24 Tariq Goyal MD [address] [place] [address] PCP - General Family Medicine 08/31/24 Kvng Jaeger MD #1 [place] [address] Consulting Physician Neurology 04/12/23 Ela Kim, BEACH EXPERT, YARD CONDUCTOR #2 [place] [address] Nurse Practitioner Advanced Practice Nurse 03/15/22 Pablo Mora MD #2 [facility] [address] [place] [address] Consulting Physician Urology 02/03/24 documented as of this encounter
--- OUTSIDE RECORDS SUMMARY | 2024-12-05 18:35 | XMS_ITS | Encounter Summary ---
Author Organization [facility] Address [address] [place] [place] [address] Phone Care Team Providers Care Environmental Officer Name Role Phone Enzo Holloway MD Primary Care Provider [phone] Kvng Jaeger MD Unavailable [phone] Ela Kim APRN, [facility] Unavailable + [phone] Tariq Goyal MD Primary Care Provider [phone] Pablo Mora MD Unavailable [phone] Enzo Holloway MD Primary Care Provider [phone] Tariq Goyal MD Primary Care Provider [phone] Reason for Visit * Reason Comments Medication Refill Encounter Details Date Type Department Care Team (Late st Contact Info) Description 12/19/2021 [facility]ill [facility] - [place] #2 [place] [address] Danya Lozano Dominga, PAC [address] [place] [address] Medication Refill Social History Tobacco Use Types [...] AM CDT Medication refilled and signed per [facility] chronic medication standing order for pediatric and adult patients. documented in this encounter Plan of Treatment Upcoming Encounters Date Type Department Care Team (Latest Contact Info) Description 12/07/2024 11:00 AM CDT [facility] #2 [place] [address] Kvng Jaeger MD #2 [place] [address] 12/25/2024 1:40 PM CDT [facility] 1 [place] [address] Pablo Mora MD #[address] [address] 12/25/2024 1:40 PM CDT - 12/25/2024 2:40 PM CDT [facility] 1 [place] [address] Pablo Mora MD #[address] [address] CYSTOSCOPY, MEATAL DILATATION 01/11/2025 11:30 AM CDT Office Visit [facility] #2 [place] [address] Pablo Mora MD #2 [facility] [address] [place] [address] Scheduled Procedures Name Priority Associated Diagnoses Date/Ti me CYSTOSCOPY URETHRAL DILATATION GROSS HEMATURIA 12/25/2024 1:40 PM CDT documented as of this encounter Visit Diagnoses Diagnosis Gastroesophageal reflux disease without esophagitis Esophageal reflux documented in this encounter Additional Health Concerns Assessment Noted Time PHQ-9 Depression Total Score: 0 02/04/20 21 1:00 PM CDT documented as of this encounter Care Teams Environmental Officer Relationship Specialty Start Date End Date Enzo Holloway MD #2 [facility] [address] [place] [address] PCP - General Family Medicine 04/27/17 12/27/23 Tariq Goyal MD [address] [place] [address] PCP - General Family Medicine 12/28/23 04/02/24 Enzo Holloway MD #2 [facility] [address] [place] [address] PCP - General Family Medicine 04/03/24 08/30/24 Tariq Goyal MD [address] [place] [address] PCP - General Family Medicine 08/31/24 Kvng Jaeger MD #1 [place] [address] Consulting Physician Neurology 04/12/23 Ela Kim APRN, BARGE LOADER #2 [place] [address] Nurse Practitioner Advanced Practice Nurse 03/15/22 Pablo Mora MD #2 [facility], [address] [address] Consulting Physician Urology 02/03/24 documented as of this encounter
--- OUTSIDE RECORDS SUMMARY | 2024-12-05 18:35 | XMS_ITS | Encounter Summary ---
Author Organization [facility] Address [address] [place] [address] Phone Care Team Providers Care Silk Winding Machine Operator Name Role Phone Enzo Holloway MD Primary Care Provider [phone] Kvng Jaeger MD Unavailable [phone] Ela Kim APRN, RIDES SUPERVISOR Unavailable [phone] Tariq Goyal MD Primary Care Provider Pablo Mora MD Unavailable [phone] Enzo Holloway MD Primary Care Provider [phone] Tariq Goyal MD Primary Care Provider [phone] Reason for Visit * Reason Comments Medication Refill Encounter Details Date Type Department Care Team (Late st Contact Info) Description 06/19/2022 Refill [facility] - Neurology [facility] #2 [place] [address] Ela Kim APRN, RIDES SUPERVISOR #2 [place] [address] Medication Refill Social History Tobacco Use Types [...] Description 12/07/2024 11:00 AM CDT [facility] [place] #2 [place] [address] Kvng Jaeger MD #2 [place] [address] 12/25/2024 1:40 PM CDT [facility] [address] [place] [address] Pablo Mora MD #[address] [address] 12/25/2024 1:40 PM CDT - 12/25/2024 2:40 PM CDT [facility] [address] [place] [address] Pablo Mora MD #[address] [address] CYSTOSCOPY, MEATAL DILATATION 01/11/2025 11:30 AM CDT Office Visit [facility] #2 [place] [address] Pablo Mora MD #[address] [address] Scheduled Procedures Name Priority Associated Diagnoses Date/Ti [...] documented as of this encounter Care Teams Silk Winding Machine Operator Relationship Specialty Start Date End Date Enzo Holloway MD #[address] [address] PCP - General Family Medicine 04/27/17 12/27/23 Tariq Goyal MD [address] [place] [address] PCP - General Family Medicine 12/28/23 04/02/24 Enzo Holloway MD #[address] [address] PCP - General Family Medicine 04/03/24 08/30/24 Tariq Goyal MD [address] [place] [address] PCP - General Family Medicine 08/31/24 Kvng Jaeger MD #1 [place] [address] Consulting Physician Neurology 04/12/23 Ela Kim, PUBLICATION MANAGER, RIDES SUPERVISOR #2 [place] [address] Nurse Practitioner Advanced Practice Nurse 03/15/22 Pablo Mora MD #2 [facility] [address] [address] Consulting Physician Urology 02/03/24 documented as of this encounter
--- OUTSIDE RECORDS SUMMARY | 2024-12-05 18:35 | XMS_ITS | Encounter Summary ---
Author Organization [facility] Address [address] [place] [address] Phone Care Team Providers Care Wedding Designer Name Role Phone Enzo Holloway MD Primary Care Provider [phone] Kvng Jaeger MD Unavailable [phone] Ela Kim APRN, BIODIESEL PRODUCTION TECHNICIAN Unavailable [phone] Tariq Goyal MD Primary Care Provider Pablo Mora MD Unavailable [phone] Enzo Holloway MD Primary Care Provider [phone] Tariq Goyal MD Primary Care Provider [phone] Reason for Visit * Reason Comments Medication Refill Encounter Details Date Type Department Care Team (Late st Contact Info) Description 02/12/[address] [facility] - Neurology [facility] #2 [place] [address] Ela Kim APRN, BIODIESEL PRODUCTION TECHNICIAN #2 [place] [address] Medication Refill Social History Tobacco Use Types [...] Description 12/07/2024 11:00 AM CDT [facility] - [place] #2 [place] [address] Kvng Jaeger MD #2 [place] [address] 12/25/2024 1:40 PM CDT [facility] 1 [place] [address] Pablo Mora MD #[address] [address] 12/25/2024 1:40 PM CDT - 12/25/2024 2:40 PM CDT [facility] 1 [place] [address] Pablo Mora MD #[address] [address] CYSTOSCOPY, MEATAL DILATATION 01/11/2025 11:30 AM CDT Office Visit [facility] #2 [place] [address] Pablo Mora MD #[address] [address] Scheduled Procedures Name Priority Associated Diagnoses Date/Ti co CYSTOSCOPY URETHRAL DILATATION GROSS HEMATURIA 12/25/2024 1:40 [...] documented as of this encounter Care Teams Wedding Designer Relationship Specialty Start Date End Date Enzo Holloway MD #[address] [address] PCP - General Family Medicine 04/27/17 12/27/23 Tariq Goyal MD [address] [place] [address] PCP - General Family Medicine 12/28/23 04/02/24 Enzo Holloway MD #[address] [address] PCP - General Family Medicine 04/03/24 08/30/24 Tariq Goyal MD [address] [place] [address] PCP - General Family Medicine 08/31/24 Kvng Jaeger MD #1 [place] [address] Consulting Physician Neurology 04/12/23 Ela Kim, SENIOR LIBRARIAN, BIODIESEL PRODUCTION TECHNICIAN #2 [place] [address] Nurse Practitioner Advanced Practice Nurse 03/15/22 Pablo Mora MD #2 [place] [address] Consulting Physician Urology 02/03/24 documented as of this encounter
--- OUTSIDE RECORDS SUMMARY | 2024-12-05 18:35 | XMS_ITS | Encounter Summary ---
Author Organization [facility] Address [address] [place] [address] Phone Care Team Providers Care Motor Vehicles Supervisor Name Role Phone Enzo Holloway MD Primary Care Provider [phone] Kvng Jaeger MD Unavailable [phone] Ela Kim APRN, YARD CRANE OPERATOR Unavailable [phone] Tariq Goyal MD Primary Care Provider Pablo Mora MD Unavailable [phone] Enzo Holloway MD Primary Care Provider [phone] Tariq Goyal MD Primary Care Provider [phone] Reason for Visit * Reason Comments Medication Refill Encounter Details Date Type Department Care Team (Late st Contact Info) Description 11/21/2023 Refill [facility] - Neurology [facility] #2 [place] [address] Ela Kim APRN, YARD CRANE OPERATOR #2 [place] [address] Medication Refill Social History Tobacco Use Types [...] AM CDT Medication([facility]) [facility] Med[facility] Refill Standing Order [...] Dept 09/23/23 Procedure Visit Kvng Jaeger MD [facility] Neurology [facility] [address] 09/13/23 Office Visit Ela Kim APRN, YARD CRANE OPERATOR [facility] [address] 07/01/23 Procedure Visit [facility]ng [facility] [address] 04/01/23 Procedure Visit [facility]ng [facility] [address] 01/20/23 Office Visit Ela Kim APRN, [place] [facility] [address] 01/07/23 Procedure Visit Kvng Jaeger MD [facility] Neurology [facility] [address] 12/14/22 Office Visit Enzo Holloway MD [facility] Showing recent visits within past 365 days and meeting all other requirements Future Appointments Date Type Provider Dept 12/16/23 Appointment Enzo Holloway MD [facility] 12/23/23 Appointment Kvng Jaeger MD [facility] Neurology [facility] Showing future appointments within next 90 days and meeting all other requirements documented in this encounter Plan of Treatment Upcoming Encounters Date Type Department Care Team (Latest Contact Info) Description 12/07/2024 11:00 AM CDT Procedure [facility] - Neurology - [place] #2 [place] [address] Kvng Jaeger MD #2 [place] [address] 12/25/2024 1:40 PM CDT Hospital Encounter [facility] Periop 1 [place] [address] Pablo Mora MD #[address] [address] 12/25/2024 1:40 PM CDT - 12/25/2024 2:40 PM CDT Surgery [facility] Periop 1 [place] [address] Pablo Mora MD #[address] [address] CYSTOSCOPY, MEATAL DILATATION 01/11/2025 11:30 AM CDT Office Visit [facility] #2 [place] [address] Pablo Mora MD #2 [facility] [address] [place] [address] Scheduled Procedures Name Priority Associated Diagnoses Date/Ti [...] documented as of this encounter Care Teams Motor Vehicles Supervisor Relationship Specialty Start Date End Date Enzo Holloway MD #[address] [address] PCP - General Family Medicine 04/27/17 12/27/23 Tariq Goyal MD [address] [place] [address] PCP - General Family Medicine 12/28/23 04/02/24 Enzo Holloway MD #[address] [address] PCP - General Family Medicine 04/03/24 08/30/24 Tariq Goyal MD [address] [place] [address] PCP - General Family Medicine 08/31/24 Kvng Jaeger MD #1 [place] [address] Consulting Physician Neurology 04/12/23 Ela Kim, HAND CULTIVATOR, YARD CRANE OPERATOR #2 [place] [address] Nurse Practitioner Advanced Practice Nurse 03/15/22 Pablo Mora MD #2 [facility], [address] [address] Consulting Physician Urology 02/03/24 documented as of this encounter
[2024-12-05 18:55] LABS: Add Urine Microscopic? NO; Appearance Urine Clear (Clear); Bilirubin Urine Negative (Negative); Blood Urine Negative (Negative); Color Urine Light Yellow (Yellow); Glucose Urine UA Negative (Negative); Ketones Urine Negative (Negative); Leukocyte Esterase Ur Negative (Negative); Nitrate Urine Negative (Negative); Protein Urine Negative (Negative); Specific Grav Ur <= 1.005 (1.010-1.020); Urobilinogen Urine 0.2 mg/dL (0.2-1.0)
[2024-12-05 19:00] LABS: Creatinine Urine 51.6 mg/dL
[2024-12-05 19:14] LABS: MALB Creatinine Ratio 11.6 mg/g (0-30); Microalbumin Urine Random < 6.0 mg/L (0-16.7)
[2024-12-05 19:47] LABS: Alanine Aminotransferase 26 U/L (6-50); Albumin Level 4.2 g/dL (3.5-5.1); Alkaline Phosphatase 74 U/L (38-126); Anion Gap 6 mmol/L (4-12); Aspartate Amino Transferase 32 U/L (17-59); Bilirubin,Total 0.5 mg/dL (0.2-1.3); Blood Urea Nitrogen 9 mg/dL (9-20); Calcium 8.7 mg/dL (8.4-10.2); Carbon Dioxide 25 mmol/L (22-30); Chloride 104 mmol/L (98-107); Estimated Glomerular Filt Rate > 60; Glucose 95 mg/dL (65-110); Osmolality Calculated 278 mOsm/kg (285-295); Potassium 3.4 mmol/L (3.4-5.0); Sodium 135 mmol/L (137-145); Total Protein 6.7 g/dL (6.3-8.2)
[2024-12-05 20:17] LABS: Prostate Specific Antigen 0.4 ng/mL (< OR = 4.0)
== END 2024-12-05 18:32 | disposition home or self-care (01) ==
LOC: CHSLAB 18:33
PROVIDERS: PCP Family Medicine; Visit Provider Family Medicine
DX: R35.1 Nocturia (principal); R31.9 Hematuria, unspecified; I10 Essential (primary) hypertension; R73.09 Other abnormal glucose
CPT/HCPCS: 36415; 80053; 81003; 82043; 84153